=== PATIENT | male | born 1935 | race Caucasian/White ===

== ENCOUNTER 2016-06-16 10:07 | Outpatient (RCR) | payer MEDICARE ==
[~2016-06-16 10:07] MED LIST: AMLO10TA PO; AMLO10TA2 PO; ASP81TEC PO; ASPI-586 PO; ATOR40TA70 PO; ATR20T PO; CLOP75TA28 PO; CLPD75T PO; CRS350T PO; CYCL5TAB11 PO; ENAL10TA PO; HYDR-3583 PO; HYDR-3730 PO; HYDR118S10 PO; METO-274 PO; METO100T2 PO; METO50TA7; NAPR550T PO; NIA500ERT; OMEG-109 PO; OMG1KC PO; TELM40T; TRAM50TA2 PO; TRM50T PO; VYTORIN
--- OUTSIDE RECORDS SUMMARY | 2016-06-16 10:10 | XMS REPORT | Continuity of Care Document ---
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 Name Role Phone NAMRATA SHAW MD PCP Advance Directives Directive Response Recorded Date/Time Advance Directives No 01/16/16 1:34pm Health Care Power of Cooler Supervisor No 01/16/16 1:34pm Organ Donor No 01/16/16 1:34pm Resuscitation Status Full Code 01/16/16 1:34pm Problems Active Problems Medical Problem Onset Date Status Plantar fasciitis Unknown Acute Sprain of wrist Unknown Acute Medications Current Home Medications Medication Dose Units Route Directions Days/Qty Instructions Start Date Enalapril Maleate 10 Mg 10 Mg Oral Twice A Day 01/18/16 Metoprolol Succinate 100 Mg 100 Mg Oral Daily 01/18/16 Amlodipine Besylate 10 Mg 10 Mg Oral Daily 01/18/16 Atorvastatin Calcium 40 Mg 40 Mg Oral Bedtime 01/18/16 [place]-3 Fatty Acids/Fish Oil 1 Each 1,200 Mg Oral Three Times A Day 01/18/16 Past Home Medications Medication Directions Ordered Status Clopidogrel Bisulfate 75 Mg Tablet, 75 Mg Oral Daily 11/09/06 Discontinued Aspirin 81 Mg Tablet, 81 Mg Oral Daily 11/09/06 Discontinued Metoprolol Succinate 50 Mg Tab.sr.24h, 11/09/06 Discontinued Telmisartan 40 Mg Tab, 11/09/06 Discontinued [Vytorin] , 11/09/06 Discontinued Atorvastatin Calcium 20 Mg Tablet, 40 Mg Oral Daily 06/13/09 Discontinued Fish Oil 1,000 Mg Cap, 1000 Unit Oral Three Times A Day 06/13/09 Discontinued Niacin 500 Mg Tablet.sa, 1000 Daily 10/19/10 Discontinued Carisoprodol 350 Mg Tablet, 1 Tab Oral Three Times A Day 10/19/10 Discontinued Acetaminophen/Hydrocodone Bitart 1 Each Tablet, 1 Each Oral As Needed Discontinued Enalapril Maleate 10 Mg Tablet, 10 Mg Oral Twice A Day 01/09/12 Discontinued Acetaminophen/Hydrocodone Bitart 1 Tab Tab, 1 - 2 Ea Oral Q 4 - 6 Hr Prn 03/08 Discontinued Tramadol Hcl 50 Mg Tab, 50 Mg Oral Every 4HRS 03/18/13 Discontinued Enalapril Maleate 10 Mg Tablet, 10 Mg Oral Twice A Day 03/31/14 Discontinued Amlodipine Besylate 10 Mg Tablet, 10 Mg Oral Daily 03/31/14 Discontinued Metoprolol Tartrate (Lopressor) 100 Mg Tablet, 100 Mg Oral Daily 03/31/14 Discontinued Tramadol Hcl 50 Mg Tablet, 50 Mg Oral Every 6 Hours as needed for Pain Discontinued Clopidogrel Bisulfate 75 Mg Tablet, 75 Mg Oral Daily 01/18/16 Discontinued Social History Social History Problem Response Recorded Date/Time Alcohol Use Denies Use 01/16/2016 1:30pm Recreational Drug Use No 01/16/2016 1:30pm Recent Foreign Travel No 01/16/2016 1:30pm Recent Infectious Disease Exposure No 01/16/2016 1:30pm Hospitalization with Isolation Denies 01/19/2016 3:31pm Smoking Status Former Smoker 01/16/2016 1:27pm Do you dip or chew tobacco? No 01/16/2016 9:23am Query Response Start Date Stop Date Smoking Status Former Smoker 05/10/2012 Hospital Discharge Instructions Patient Instructions Physician Instructions New, Converted or Re-Newed RX: Other Plan of Care/Instructions/FU: Take a small feeding low-fat diet. See Dr. SANFORD at the [facility] tomorrow morning. Your appointment is for 11 o'clock. Please arrive by 1045. Do not take your Plavix or aspirin until seen and okayed by Dr. SANFORD Activity as Tolerated: Yes Discharge Diet: Eat Small Frequent Meals, Avoid Fatty Foods Care Plan Patient Instructions:: Take a small feeding low-fat diet.See [facility] at [facility] tomorrow morning. Yourappointment is for 11 o'clock. Please arrive by 1045.Do not take your Plavix or aspirin until seen and okayed by Dr. SANFORD Plan of Care Discharge Date 01/19/16 3:30pm Disposition 01 HOME, SELF-CARE Instructions/Education Provided Low Fat Diet (DC) Bone Marrow Biopsy (ED) Forms Provided PDI Medical Prescriptions See Medication Section Referrals QUANG SANFORD MD (Unspecified) - 01/19/16 Address: [facility] [address] [place], [place] [id number] Reason(s) for Referral: 11:00AM Care Plan and Goals See Discharge Instructions Section Functional Status Query Response Date Recorded Patient Orientation Person Place Time Situation Mumbles January 19, 2016 3:30pm Comprehension Ability Understands Concepts January 16, 2016 1:35pm Allergies, Adverse Reactions, Alerts Allergen Type Severity Reaction Status Last Updated Iodinated Contrast Media - IV Dye Allergy Unknown Active 11/09/06 Immunizations Name Given Type Date of Pneumonia Vaccine 07/10/11 Historical Date of Influenza Vaccine 05/28/11 Historical pneumococcal polysaccharide PPV23 01/19/16 Administered pneumococcal polysaccharide PPV23 01/19/16 Administered Vital Signs Acute Vital Signs Vital Response Date/Time Temperature (Fahrenheit) 96.8 degrees F (97.6 - 99.5) 01/19/2016 2:21pm Temperature (Calculated Celsius) 36.13492 degrees C (36.4 - 37.5) 01/19/2016 2:21pm Temperature Source Tympanic 01/19/2016 2:21pm Pulse Rate (adult) 83 bpm (60 - 90) 01/19/2016 2:21pm Respiratory Rate 20 bpm (12 - 24) 01/19/2016 2:21pm O2 Sat by Pulse Oximetry 99 % (88 - 100) 01/19/2016 2:21pm Blood Pressure 125/60 mm Hg 01/19/2016 2:21pm Blood Pressure Mean 81 mm Hg 01/19/2016 2:21pm Pain Pain Intensity 0 01/19/2016 2:21pm Height (Feet) 5 feet 01/16/2016 1:21pm Height (Inches) 4.00 inches 01/16/2016 1:21pm Height (Calculated Centimeters) 162.351856 cm 01/16/2016 1:21pm Weight (Pounds) 150 pounds 01/16/2016 1:21pm Weight (Ounces) 6.0 oz 01/16/2016 1:21pm Weight (Calculated Grams) 77609.953 gm 01/16/2016 1:21pm Weight (Calculated Kilograms) 68.723230 kilograms 01/16/2016 1:21pm Calculated BMI 25.8 01/16/2016 1:21pm Results Pending Laboratory Results Test Name Collection Date/Time Procedures No known history of procedures. Encounters Encounter Location Arrival/Admit Date Discharge/Depart Date Attending Provider Discharged Inpatient (obs) [facility] 01/16/16 1:40pm 3:30pm GIRISH CHAN MD Registered Referred [facility] 01/14/16 10:55am SIMÓN MANNING
[2016-06-16 10:43] LABS: BASOPHILS % (AUTO) 1 % (0-10); EOSINOPHILS # (AUTO) 0.4 10^3/uL (0.0-0.3); EOSINOPHILS % (AUTO) 5 % (0-10); LYMPHOCYTES # (AUTO) 2.1 X 10^3 (1.0-4.0); LYMPHOCYTES % (AUTO) 25 % (12-44); MEAN CORPUSCULAR HEMOGLOBIN 30 PG (25-34); MEAN CORPUSCULAR HGB CONC 35 G/DL (32-36); MEAN CORPUSCULAR VOLUME 86 FL (80-99); MEAN PLATELET VOLUME 10.3 FL (7.4-10.4); MONOCYTES % (AUTO) 12 % (0-12); NEUTROPHILS # (AUTO) 4.8 X 10^3 (1.8-7.8); NEUTROPHILS % (AUTO) 58 % (42-75); PLATELET COUNT 205 10^3/uL (130-400); RED BLOOD COUNT 4.61 10^6/uL (4.35-5.85); RED CELL DISTRIBUTION WIDTH 14.7 % (10.0-14.5); WHITE BLOOD COUNT 8.4 10^3/uL (4.3-11.0)
[2016-06-16 11:07] LABS: ALANINE AMINOTRANSFERASE 20 U/L (0-55); ANION GAP 9 MMOL/L (5-14); ASPARTATE AMINO TRANSFERASE 18 U/L (5-34); BILIRUBIN,TOTAL 0.7 MG/DL (0.1-1.0); BLOOD UREA NITROGEN 24 MG/DL (7-18); BUN/CREATININE RATIO 29; CALCIUM 9.6 MG/DL (8.5-10.1); CARBON DIOXIDE 22 MMOL/L (21-32); CHLORIDE 104 MMOL/L (98-107); CREATININE SERUM 0.84 MG/DL (0.60-1.30); GFR ESTIMATED > 60; GLUCOSE 101 MG/DL (70-105); LACTATE DEHYDROGENASE 245 U/L (125-220); POTASSIUM 4.1 MMOL/L (3.6-5.0); SODIUM 135 MMOL/L (135-145); TOTAL PROTEIN 6.4 G/DL (6.4-8.2)
[2016-07-23] MEDS ORDERED: AMOX-355 PO (15:59)
== END 2016-09-14 | disposition home or self-care (01) ==
LOC: ONC 10:07
PROVIDERS: ATTEND Internal Medicine Hematology & Oncology
DX: D69.6 Thrombocytopenia, unspecified (principal); I25.10 Atherosclerotic heart disease of native coronary artery without angina pectoris; E78.00 Pure hypercholesterolemia, unspecified; K21.9 Gastro-esophageal reflux disease without esophagitis; K44.9 Diaphragmatic hernia without obstruction or gangrene; E78.5 Hyperlipidemia, unspecified; D46.9 Myelodysplastic syndrome, unspecified
CPT/HCPCS: 36415; 80053; 82232; 83615; 85025; 99213

== ENCOUNTER 2016-11-30 14:29 | Emergency (ER) | payer MEDICARE ==
[~2016-11-30] VITALS: Ht 160 cm; Wt 59.0 kg
[~2016-11-30 14:29] MED LIST changes: +AMOX-355 PO
--- NOTE | 2016-11-30 14:38 | ED Cough/URI ---
General Chief Complaint: Cough/Cold/Flu Symptoms Stated Complaint: FLU SYMPTOMS Source: patient Exam Limitations: no limitations History of Present Illness Time seen by provider: 14:37 Initial Comments To ER ambulatory accompanied by his with reports of fever, nonproductive cough, rhinorrhea and sore throat since yesterday. Timing/Duration: yesterday Severity/Quality: moderate Associated Symptoms: cough, fever/chills, nasal drainage, sore throat Allergies and Home Medications Allergies Coded Allergies: Iodinated Contrast Media - IV Dye (Verified Allergy, Unknown, 11/09/06) Home Medications Acetaminophen with Codeine 1 Each Tablet, 1 EACH PO Q8H PRN for COUGH, #10 Prescribed by: NIKOLE PIERRE on 11/30/16 1533 Amlodipine Besylate 10 Mg Tablet, 10 MG PO DAILY, (Reported) Aspirin 81 Mg Tablet.dr, 81 MG PO DAILY, (Reported) Atorvastatin Calcium 40 Mg Tablet, 40 MG PO HS, (Reported) Clopidogrel Bisulfate 75 Mg Tablet, 75 MG PO DAILY, (Reported) Docusate Sodium 100 Mg Capsule, 100 MG PO DAILY for 3 Days, #10 Prescribed by: NIKOLE PIERRE on 11/30/16 1533 Enalapril Maleate 10 Mg Tablet, 10 MG PO BID, (Reported) Hydrocodone/Acetaminophen 1 Each Tablet, 1-2 EACH PO Q4H, #35 Prescribed by: GIRISH CHAN on 03/04/16 1034 Metoprolol Succinate 100 Mg Tab.er.24h, 100 MG PO DAILY, (Reported) [place]-3 Fatty Acids/Fish Oil 1 Each Capsule, 1,200 MG PO TID, (Reported) Oseltamivir Phosphate 75 Mg Cap, 75 MG PO BID, #10 Prescribed by: NIKOLE PIERRE on 11/30/16 1533 Constitutional: see HPI, chills, fever EENTM: nose congestion, see HPI Respiratory: see HPI, cough Genitourinary: no symptoms reported Musculoskeletal: no symptoms reported Skin: no symptoms reported Psychiatric/Neurological: No Symptoms Reported Hematologic/Lymphatic: No Symptoms Reported Past Jqanldc-Frltob-Uwumos Hx Patient Social History Alcohol Use: Denies Use Recreational Drug Use: No Smoking Status: Former Smoker Type Used: Cigarettes Former Smoker/When Quit: May 10, 2012 Recent Foreign Travel: No Contact w/Someone Who Travel: No Recent Hopitalizations: No Immunizations Up To Date Tetanus Booster (TDap): Less than 5yrs Date of Pneumonia Vaccine: Jul 10, 2011 Date of Influenza Vaccine: May 28, 2011 Surgeries HX Surgeries: Yes (HERNIA X2, STENT IN HEART 2003) Respiratory Hx Respiratory Disorders: No Cardiovascular Hx Cardiac Disorders: Yes (STENT) Cardiac Disorders: High Cholesterol, Hypertension Neurological Hx Neurological Disorders: Yes Reproductive System Hx Reproductive Disorders: No Sexually Transmitted Disease: No HIV/AIDS: No Genitourinary Hx Genitourinary Disorders: No Gastrointestinal Hx Gastrointestinal Disorders: Yes Gastrointestinal Disorders: Hiatal Hernia Musculoskeletal Hx Musculoskeletal Disorders: Yes Musculoskeletal Disorders: Arthritis Endocrine Hx Endocrine Disorders: No HEENT HX ENT Disorders: Yes HEENT Disorders: Cataract Hearing Impairment: Denies Cancer Hx Cancer: No Psychosocial Hx Psychiatric Problems: No Integumentary HX Skin/Integumentary Disorder: No Blood Transfusions Hx Blood Disorders: No Adverse Reaction to a Blood Tr: No Family Medical History Significant Family History: No Pertinent Family Hx Physical Exam Vital Signs Vital Sign - Last 12Hours 11/30/16 14:34 Temp 101.6 Pulse 87 Resp 20 B/P (MAP) 159/98 Pulse Ox 92 O2 Delivery Room Air Capillary Refill : General Appearance: WD/WN, no apparent distress Eyes: Bilateral Eye EOMI, Bilateral Eye Normal Inspection, Bilateral Eye PERRL HEENT: PERRL/EOMI, normal ENT inspection Neck: non-tender, full range of motion Respiratory: lungs clear, normal breath sounds, no respiratory distress, no accessory muscle use, No wheezing Cardiovascular: regular rate, rhythm Gastrointestinal: normal bowel sounds, non tender, soft Extremities: normal range of motion, non-tender Neurologic/Psychiatric: alert, normal mood/affect, oriented x 3 Skin: normal color, warm/dry Laceration Repair : Suture Size: 5-0 Progress/Results/Core Measures Results/Orders Micro Results Microbiology 11/30/16 Influenza Types A,B Antigen (NAHEED) - Final, Complete My Orders Orders - NIKOLE PIERRE APRN Chest Pa/Lat (2 View) (11/30/16 14:35) Influenza A And B Antigens (11/30/16 14:35) Ibuprofen Tablet (Motrin Tablet) (11/30/16 14:45) Acetaminophen/Codeine Tablet (Tylenol W/ (11/30/16 14:45) Medications Given in ED Vital Signs/I&O Vital Sign - Last 12Hours 11/30/16 11/30/16 14:34 15:38 Temp 101.6 100.3 Pulse 87 84 Resp 20 20 B/P (MAP) 159/98 Pulse Ox 92 92 O2 Delivery Room Air Diagnostic Imaging Diagonstic Imaging: Xray Plain Films/CT/US/NM/MRI: chest Departure Impression Impression: Primary Impression: Influenza-like symptoms Disposition: HOME, SELF-CARE Condition: Stable Departure-Patient Inst. Decision time for Depature: 15:31 Referrals: NAMRATA SPARKS MD (PCP/Family) Primary Care Physician Patient Instructions: Flu, Adult (DC) Add. Discharge Instructions: 1. Tylenol and motrin as needed for fevers and discomfort 2. Follow up with Dr Sparks on Monday of this week 3. Medicaion as directed All discharge instructions reviewed with patient and/or family. Voiced understanding. Scripts Oseltamivir Phosphate (Tamiflu) 75 Mg Cap 75 MG PO BID, #10 CAP Prov: NIKOLE PIERRE APRN 11/30/16 Docusate Sodium (Colace) 100 Mg Capsule 100 MG PO DAILY for 3 Days, #10 CAP Prov: NIKOLE PIERRE APRN 11/30/16 Acetaminophen with Codeine (Tylenol with Codeine #3 Tablet) 1 Each Tablet 1 EACH PO Q8H Y for COUGH, #10 TAB Prov: NIKOLE PIERRE APRN 11/30/16 NIKOLE PIERRE APRN Nov 30, 2016 14:38
[2016-11-30] MEDS ORDERED: APAP 300 MG/CODEINE 30 MG (TYLENOL #3) TAB PO ONE (14:45)
[2016-11-30] MEDS ORDERED: IBUPROFEN TABLET 200 MG TAB PO ONE (14:45)
--- NOTE | 2016-11-30 15:28 | Diagnostic Imaging Report ---
INDICATION: Started coughing this morning, persisted all day. FINDINGS: Frontal and lateral views of the chest demonstrates lungs to be clear. The heart, mediastinum, pulmonary vascularity are normal. IMPRESSION: Negative chest. Dictated by: Dictated on workstation # [id number]
[2016-11-30] MEDS ORDERED: OSLT75C PO (15:33)
[2016-11-30] MEDS ORDERED: DOCU-143 PO (15:33)
[2016-11-30] MEDS ORDERED: ACET-789 PO (15:33)
[2016-11-30 15:38] VITALS: BP 142/90
--- OUTSIDE RECORDS SUMMARY | 2017-01-01 17:34 | XMS REPORT | Continuity of Care Document ---
Author Author [facility] Organization [facility] Address Unknown Phone Unavailable Allergies Active Description Code Type Severity Reaction Onset Reported/Identified Relationship to Patient Clinical Status Yes Iodinated Contrast Media - IV Dye [id number] Drug Allergy Unknown N/A 11/09/2006 Yes Iodinated Contrast Media - Oral and [id number] Drug Allergy Unknown N/A 11/09/2006 Medications Problems Date Dx Coded Attending Type Code Diagnosis Diagnosed By 10/19/2010 Ot 723.1 CERVICALGIA 03/06/2012 Ot 272.4 HYPERLIPIDEMIA NEC/NOS 03/06/2012 Ot 275.2 DIS MAGNESIUM METABOLISM 03/06/2012 Ot 276.51 DEHYDRATION 03/06/2012 Ot 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 03/06/2012 Ot 458.9 HYPOTENSION NOS 03/06/2012 Ot 584.9 ACUTE RENAL FAILURE, UNSPECIFIED 03/06/2012 Ot 992.5 HEAT EXHAUSTION NOS 03/06/2012 Ot E000.8 OTHER EXTERNAL CAUSE STATUS 03/06/2012 Ot E849.0 ACCIDENT IN HOME 03/06/2012 Ot E900.0 EXCESSIVE HEAT: WEATHER 03/06/2012 Ot V45.82 PERCUTANEOUS TRANSLUM CORON ANGIOPLASTY 05/04/2012 Ot 272.0 PURE HYPERCHOLESTEROLEM 05/04/2012 Ot 272.4 HYPERLIPIDEMIA NEC/NOS 05/04/2012 Ot 401.9 HYPERTENSION NOS 05/04/2012 Ot 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 05/04/2012 Ot 550.10 UNILAT ING HERNIA W OBST 05/04/2012 Ot 603.9 HYDROCELE NOS 05/04/2012 Ot V45.82 PERCUTANEOUS TRANSLUM CORON ANGIOPLASTY 05/11/2012 Ot 550.90 UNILAT INGUINAL HERNIA 03/18/2013 BONITA SELF Ot 89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 03/18/2013 BONITA SELF Ot 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 03/18/2013 BONITA SELF Ot 729.5 PAIN IN LIMB 03/18/2013 BONITA SELF Ot 923.00 CONTUSION SHOULDER REG 03/18/2013 BONITA SELF Ot 923.11 CONTUSION OF ELBOW 03/18/2013 BONITA SELF Ot E849.0 ACCIDENT IN HOME 03/18/2013 BONITA SELF Ot E885.9 FALL FROM SLIPPING, TRIPPING, OR STUMBLI 03/18/2013 BONITA SELF Ot V12.54 PERSONAL HX OF TIA, CEREBRAL INFARCTION 03/18/2013 BONITA SELF Ot V45.82 PERCUTANEOUS TRANSLUM CORON ANGIOPLASTY 03/18/2013 BONITA SELF Ot V58.63 LONG-TERM(CURRENT)USE OF ANTIPLATELET/ AN 03/18/2013 BONITA SELF Ot V58.66 LONG-TERM (CURRENT) USE OF ASPIRIN 03/18/2013 BONITA SELF Ot V58.69 OTH MED,LT,CURRENT USE 09/16/2013 NIKOLE PIERRE APRN Ot 842.00 SPRAIN OF WRIST NOS 09/16/2013 NIKOLE PIERRE APRN Ot 959.3 ELB/FOREARM/WRST INJ NOS 09/16/2013 NIKOLE PIERRE APRN Ot E000.8 OTHER EXTERNAL CAUSE STATUS 09/16/2013 NIKOLE PEIRRE APRN Ot E885.9 FALL FROM SLIPPING, TRIPPING, OR STUMBLI 03/31/2014 MARLEEN GEORGE DO Ot 366.9 CATARACT NOS 03/31/2014 MARLEEN GEORGE DO Ot 401.9 HYPERTENSION NOS 03/31/2014 MARLEEN GEORGE DO Ot 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 03/31/2014 MARLEEN GEORGE DO Ot 728.71 PLANTAR FIBROMATOSIS 03/31/2014 MARLEEN GEORGE DO Ot V12.54 PERSONAL HX OF TIA, CEREBRAL INFARCTION 03/31/2014 MARLEEN GEORGE DO, Ot V45.82 PERCUTANEOUS TRANSLUM CORON ANGIOPLASTY 03/31/2014 MARLEEN GEORGE DO Ot V58.61 ANTICOAGULANTS,LT,CURRENT USE 03/31/2014 MARLEEN GEORGE DO Ot V58.63 LONG-TERM(CURRENT)USE OF ANTIPLATELET/ AN 03/31/2014 MARLEEN GEORGE DO, Ot V58.69 OTH MED,LT,CURRENT USE 10/07/2014 Ot 397.0 10/07/2014 Ot 401.9 10/07/2014 Ot 414.01 10/07/2014 Ot 424.0 10/07/2014 Ot 272.4 10/07/2014 Ot 272.4 10/07/2014 Ot 401.9 10/07/2014 Ot 414.01 10/07/2014 Ot 424.0 10/07/2014 Ot 715.31 10/07/2014 Ot 791.9 10/07/2014 Ot V72.63 10/07/2014 Ot V72.81 10/07/2014 Ot V74.8 10/07/2014 Ot 272.4 10/07/2014 Ot 401.9 10/07/2014 Ot 414.01 10/07/2014 Ot 272.4 10/07/2014 Ot 401.9 10/07/2014 Ot 414.01 10/07/2014 Ot 272.4 10/07/2014 Ot 401.9 10/07/2014 Ot 414.01 10/07/2014 Ot 272.4 10/07/2014 Ot 396.3 10/07/2014 Ot 397.0 10/07/2014 Ot 414.00 10/07/2014 Ot 786.50 10/07/2014 Ot 401.9 10/07/2014 Ot 414.00 10/07/2014 Ot 272.4 10/07/2014 ADRI ROSALES, JOSE Vines Ot 396.3 10/07/2014 ADRI ROSALES, JOSE Vines Ot 397.0 10/07/2014 ADRI ROSALES, JOSE Vines Ot 401.9 10/07/2014 ADRI ROSALES, JOSE Vines Ot 414.00 10/07/2014 ADRI ROSALES, JOSE Vines Ot 424.1 10/07/2014 ADRI ROSALES, JOSE Vines Ot 433.10 10/07/2014 ADRI ROSALES, JOSE Vines Ot 272.4 10/07/2014 ADRI ROSALES, JOSE Vines Ot 401.9 10/07/2014 ADRI ROSALES, JOSE Vines Ot 414.00 10/07/2014 ADRI ROSALES, JOSE Vines Ot 424.1 10/07/2014 ADRI ROSALES, JOSE Vines Ot 433.10 10/09/2014 ADRI ROSALES, JOSE Vines Ot 272.4 10/09/2014 ADRI ROSALES, JOSE Vines Ot 401.9 10/09/2014 JOSE RUSH MD Ot 414.00 10/09/2014 ADRI ROSALES, JOSE Vines Ot 424.0 10/09/2014 ADRI ROSALES, JOSE Vines Ot 433.10 11/18/2014 Ot 397.0 11/18/2014 Ot 401.9 11/18/2014 Ot 414.01 11/18/2014 Ot 424.0 11/18/2014 Ot 272.4 11/18/2014 Ot 272.4 11/18/2014 Ot 401.9 11/18/2014 Ot 414.01 11/18/2014 Ot 424.0 11/18/2014 Ot 715.31 11/18/2014 Ot 791.9 11/18/2014 Ot V72.63 11/18/2014 Ot V72.81 11/18/2014 Ot V74.8 11/18/2014 Ot 272.4 11/18/2014 Ot 401.9 11/18/2014 Ot 414.01 11/18/2014 Ot 272.4 11/18/2014 Ot 401.9 11/18/2014 Ot 414.01 11/18/2014 Ot 272.4 11/18/2014 Ot 401.9 11/18/2014 Ot 414.01 11/18/2014 Ot 272.4 11/18/2014 Ot 396.3 11/18/2014 Ot 397.0 11/18/2014 Ot 414.00 11/18/2014 Ot 786.50 11/18/2014 Ot 401.9 11/18/2014 Ot 414.00 11/18/2014 Ot 272.4 11/18/2014 ADRI ROSALES, JOSE Vines Ot 396.3 11/18/2014 ADRI ROSALES, JOSE Vines Ot 397.0 11/18/2014 ADRI ROSALES, JOSE Vines Ot 401.9 11/18/2014 ADRI ROSALES, JOSE Vines Ot 414.00 11/18/2014 ADRI ROSALES, JOSE Vines Ot 424.1 11/18/2014 ADRI ROSAELS, JOSE Vines Ot 433.10 11/18/2014 ADRI ROSALES, JOSE Vines Ot 272.4 11/18/2014 ADRI ROSALES, JOSE Vines Ot 401.9 11/18/2014 ADRI ROSALES, JOSE Vines Ot 414.00 11/18/2014 ADRI ROSALES, JOSE Vines Ot 424.1 11/18/2014 ADRI ROSALES, JOSE Vines Ot 433.10 11/18/2014 ADRI ROSALES, JOSE Vines Ot 272.4 11/18/2014 ADRI ROSALES, JOSE Vines Ot 401.9 11/18/2014 ADRI ROSALES, JOSE Vines Ot 414.00 11/18/2014 ADRI ROSALES, JOSE Vines Ot 424.0 11/18/2014 ADRI ROSALES, JOSE Vines Ot 433.10 04/10/2015 ADRI ROSALES, JOSE Vines Ot 272.4 04/10/2015 ADRI ROSALES, JOSE Vines Ot 401.9 04/10/2015 ADRI ROSALES, JOSE Vines Ot 414.00 04/10/2015 ADRI ROSALES, JOSE Vines Ot 424.0 04/10/2015 ADRI ROSALES, JOSE Vines Ot 433.10 05/26/2015 Ot 272.4 05/26/2015 Ot 401.9 05/26/2015 Ot 414.01 05/26/2015 Ot 272.4 05/26/2015 Ot 401.9 05/26/2015 Ot 414.01 05/26/2015 Ot 272.4 05/26/2015 Ot 401.9 05/26/2015 Ot 414.01 05/26/2015 Ot 272.4 05/26/2015 Ot 396.3 05/26/2015 Ot 397.0 05/26/2015 Ot 414.00 05/26/2015 Ot 786.50 05/26/2015 Ot 401.9 05/26/2015 Ot 414.00 05/26/2015 Ot 272.4 05/26/2015 ADRI ROSALES, JOSE Vines Ot 396.3 05/26/2015 ADRI ROSALES, JOSE Vines Ot 397.0 05/26/2015 ADRI ROSALES, JOSE Vines Ot 401.9 05/26/2015 ADRI ROSALES, JOSE Vines Ot 414.00 05/26/2015 ADRI ROSALES, JOSE Vines Ot 424.1 05/26/2015 ADRI ROSALES, JOSE Vines Ot 433.10 05/26/2015 ADRI ROSALES, JOSE Vines Ot 272.4 05/26/2015 ADRI ROSALES, JOSE Vines Ot 401.9 05/26/2015 ADRI ROSALES, JOSE Vines Ot 414.00 05/26/2015 ADRI ROSALES, JOSE Vines Ot 424.1 05/26/2015 ADRI ROSALES, JOSE Vines Ot 433.10 05/26/2015 ADRI ROSALES, JOSE Vines Ot 272.4 05/26/2015 EARLE RUSH MDHAR J Ot 401.9 05/26/2015 ADRI ROSALES, JOSE Vines Ot 414.00 05/26/2015 ADRI ROSALES, JOSE Vines Ot 424.0 05/26/2015 ADRI ROSALES, JOSE Vines Ot 433.10 06/18/2015 MCKEON-SAE PA, MAGALIS K Ot 401.9 06/18/2015 MCKEON-SAE PA, MAGALIS K Ot 414.9 06/18/2015 MCKEON-SAE PA, MAGALIS K Ot 424.1 06/18/2015 MCKEON-SAE PA, MAGALIS K Ot 427.89 06/18/2015 MCKEON-SAE PA, MAGALIS K Ot 433.10 07/06/2015 MCKEON-SAE PA, MAGALIS K Ot 401.9 07/06/2015 MCKEON-SAE PA, MAGALIS K Ot 414.9 07/06/2015 MCKEON-SAE PA, MAGALIS K Ot 424.1 07/06/2015 MCKEON-SAE PA, MAGALIS K Ot 427.89 07/06/2015 MCKEON-SAE PA, MAGALIS K Ot 433.10 07/20/2015 MCKEON-SAE PA, MAGALIS K Ot I10 07/20/2015 MCKEON-SAE PA, MAGALIS K Ot I25.10 07/20/2015 MCKEON-SAE PA, MAGALIS K Ot I35.1 07/20/2015 MCKEON-SAE PA, MAGALIS K Ot I65.29 07/20/2015 MCKEON-SAE PA, MAGALIS K Ot R00.1 08/04/2015 MCKEON-SAE PA, MAGALIS K Ot I10 08/04/2015 MCKEON-SAE PA, MAGALIS K Ot I25.10 08/04/2015 MCKEON-SAE PA, MAGALIS K Ot I35.1 08/04/2015 MCKEON-SAE PA, MAGALIS K Ot I65.29 08/04/2015 MCKEON-SAE PA, MAGALIS K Ot R00.1 11/17/2015 ADRI ROSALES, JOSE Vines Ot E78.2 11/17/2015 ADRI ROSALES, JOSE Vines Ot I10 11/17/2015 ADRI ROSALES, JOSE Vines Ot I25.10 11/17/2015 ADRI ROSALES, JOSE Vines Ot I65.23 01/19/2016 GIRISH CHAN MD Ot D69.6 THROMBOCYTOPENIA, UNSPECIFIED 01/19/2016 GIRISH CHAN MD Ot D70.9 NEUTROPENIA, UNSPECIFIED 01/19/2016 GIRISH CHAN MD Ot E78.0 PURE HYPERCHOLESTEROLEMIA 01/19/2016 GIRISH CHAN MD Ot E78.5 HYPERLIPIDEMIA, UNSPECIFIED 01/19/2016 GIRISH CHAN MD Ot I25.10 ATHSCL HEART DISEASE OF [place] CORONARY 01/19/2016 GIRISH CHAN MD Ot K21.9 GASTRO-ESOPHAGEAL REFLUX DISEASE WITHOUT 01/19/2016 GIRISH CHAN MD Ot K44.9 DIAPHRAGMATIC HERNIA WITHOUT OBSTRUCTION 01/19/2016 GIRISH CHAN MD Ot K80.10 CALCULUS OF GALLBLADDER W CHRONIC CHOLEC 01/19/2016 GIRISH CHAN MD Ot R10.11 RIGHT UPPER QUADRANT PAIN 01/19/2016 GIRISH CHAN MD Ot D69.6 THROMBOCYTOPENIA, UNSPECIFIED 01/19/2016 GIRISH CHAN MD Ot D70.9 NEUTROPENIA, UNSPECIFIED 01/19/2016 GIRISH CHAN MD Ot E78.0 PURE HYPERCHOLESTEROLEMIA 01/19/2016 GIRISH CHAN MD Ot E78.5 HYPERLIPIDEMIA, UNSPECIFIED 01/19/2016 GIRISH CHAN MD Ot I25.10 ATHSCL HEART DISEASE OF [place] CORONARY 01/19/2016 GIRISH CHAN MD Ot K21.9 GASTRO-ESOPHAGEAL REFLUX DISEASE WITHOUT 01/19/2016 GIRISH CHAN MD Ot K44.9 DIAPHRAGMATIC HERNIA WITHOUT OBSTRUCTION 01/19/2016 GIRISH CHAN MD Ot K80.10 CALCULUS OF GALLBLADDER W CHRONIC CHOLEC 01/19/2016 GIRISH CHAN MD Ot R10.11 RIGHT UPPER QUADRANT PAIN 01/25/2016 ORVILLE ROSALES, GERARD Arreola Ot M25.551 PAIN IN RIGHT HIP 02/16/2016 Ot 272.4 HYPERLIPIDEMIA NEC/NOS 02/16/2016 Ot 401.9 HYPERTENSION NOS 02/16/2016 Ot 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 02/16/2016 Ot 272.4 HYPERLIPIDEMIA NEC/NOS 02/16/2016 Ot 401.9 HYPERTENSION NOS 02/16/2016 Ot 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 02/16/2016 Ot 272.4 HYPERLIPIDEMIA NEC/NOS 02/16/2016 Ot 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 02/16/2016 Ot 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 DISEASE 02/16/2016 Ot 414.00 CORON ATHEROSCLER NOS TYPE VESSEL, NATIV 02/16/2016 Ot 786.50 CHEST PAIN NOS 02/16/2016 Ot 401.9 HYPERTENSION NOS 02/16/2016 Ot 414.00 CORON ATHEROSCLER NOS TYPE VESSEL, NATIV 02/16/2016 Ot 272.4 HYPERLIPIDEMIA NEC/NOS 02/16/2016 JOSE RUSH MD Ot 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 02/16/2016 JOSE RUSH MD Ot 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 DISEASE 02/16/2016 JOSE RUSH MD Ot 401.9 HYPERTENSION NOS 02/16/2016 JOSE RUSH MD Ot 414.00 CORON ATHEROSCLER NOS TYPE VESSEL, NATIV 02/16/2016 JSOE RUSH MD Ot 424.1 AORTIC VALVE DISORDER 02/16/2016 JOSE RUSH MD Ot 433.10 CAROTID ARTERY OCCLUSION W O CEREBRAL IN 02/16/2016 JOSE RUSH MD Ot 272.4 HYPERLIPIDEMIA NEC/NOS 02/16/2016 JOSE RUSH MD Ot 401.9 HYPERTENSION NOS 02/16/2016 JOSE RUSH MD Ot 414.00 CORON ATHEROSCLER NOS TYPE VESSEL, NATIV 02/16/2016 JOSE RUSH MD Ot 424.1 AORTIC VALVE DISORDER 02/16/2016 JOSE RUSH MD Ot 433.10 CAROTID ARTERY OCCLUSION W O CEREBRAL IN 02/16/2016 JOSE RUSH MD Ot 272.4 HYPERLIPIDEMIA NEC/NOS 02/16/2016 JOSE RUSH MD Ot 401.9 HYPERTENSION NOS 02/16/2016 JOSE RUSH MD Ot 414.00 CORON ATHEROSCLER NOS TYPE VESSEL, NATIV 02/16/2016 JOSE RUSH MD Ot 424.0 MITRAL VALVE DISORDER 02/16/2016 JOSE RUSH MD Ot 433.10 CAROTID ARTERY OCCLUSION W O CEREBRAL IN 02/16/2016 MAGALIS FOURNIER Ot 401.9 HYPERTENSION NOS 02/16/2016 MAGALIS FOURNIER Ot 414.9 CHR ISCHEMIC HRT DIS NOS 02/16/2016 MAGALIS FOURNIER Ot 424.1 AORTIC VALVE DISORDER 02/16/2016 MAGALIS FOURNIER Ot 427.89 CARDIAC DYSRHYTHMIAS NEC 02/16/2016 MAGALIS FOURNIER Ot 433.10 CAROTID ARTERY OCCLUSION W O CEREBRAL IN 02/16/2016 MAGALIS FOURNIER Ot I10 ESSENTIAL (PRIMARY) HYPERTENSION 02/16/2016 MAGALIS FOURNIER Ot I25.10 ATHSCL HEART DISEASE OF [place] CORONARY 02/16/2016 MAGALIS FOURNIER Ot I35.1 NONRHEUMATIC AORTIC (VALVE) INSUFFICIENC 02/16/2016 MAGALIS FOURNIER Ot I65.29 OCCLUSION AND STENOSIS OF UNSPECIFIED CA 02/16/2016 MAGALIS FOURNIER Ot R00.1 BRADYCARDIA, UNSPECIFIED 02/16/2016 JOSE RUSH MD Ot E78.2 MIXED HYPERLIPIDEMIA 02/16/2016 JOSE RUSH MD Ot I10 ESSENTIAL (PRIMARY) HYPERTENSION 02/16/2016 JOSE RUSH MD Ot I25.10 ATHSCL HEART DISEASE OF [place] CORONARY 02/16/2016 JOSE RUSH MD Ot I65.23 OCCLUSION AND STENOSIS OF BILATERAL [place] 02/16/2016 QUANG SANFORD MD Ot D69.6 THROMBOCYTOPENIA, UNSPECIFIED 02/16/2016 QUANG SANFORD MD Ot E78.0 PURE HYPERCHOLESTEROLEMIA 02/16/2016 QUANG SANFORD MD, Ot E78.5 HYPERLIPIDEMIA, UNSPECIFIED 02/16/2016 QUANG SANFORD MD Ot I25.10 ATHSCL HEART DISEASE OF [place] CORONARY 02/16/2016 QUANG SANFORD MD Ot K21.9 GASTRO-ESOPHAGEAL REFLUX DISEASE WITHOUT 02/16/2016 QUANG SANFORD MD Ot K44.9 DIAPHRAGMATIC HERNIA WITHOUT OBSTRUCTION 02/16/2016 QUANG SANFORD MD Ot D69.6 THROMBOCYTOPENIA, UNSPECIFIED 02/16/2016 QUANG SANFORD MD Ot E78.0 PURE HYPERCHOLESTEROLEMIA 02/16/2016 QUANG SANFORD MD Ot E78.5 HYPERLIPIDEMIA, UNSPECIFIED 02/16/2016 QUANG SANFORD MD Ot I25.10 ATHSCL HEART DISEASE OF [place] CORONARY 02/16/2016 QUANG SANFORD MD Ot K21.9 GASTRO-ESOPHAGEAL REFLUX DISEASE WITHOUT 02/16/2016 QUANG SANFORD MD Ot K44.9 DIAPHRAGMATIC HERNIA WITHOUT OBSTRUCTION 02/19/2016 QUANG SANFORD MD Ot D69.6 THROMBOCYTOPENIA, UNSPECIFIED 02/19/2016 QUANG SANFORD MD Ot E78.0 PURE HYPERCHOLESTEROLEMIA 02/19/2016 QUANG SANFORD MD Ot E78.5 HYPERLIPIDEMIA, UNSPECIFIED 02/19/2016 QUANG SANFORD MD Ot I25.10 ATHSCL HEART DISEASE OF [place] CORONARY 02/19/2016 QUANG SANFORD MD Ot K21.9 GASTRO-ESOPHAGEAL REFLUX DISEASE WITHOUT 02/19/2016 QUANG SANFORD MD Ot K44.9 DIAPHRAGMATIC HERNIA WITHOUT OBSTRUCTION 02/26/2016 GIRISH CHAN MD, Ot K80.20 CALCULUS OF GALLBLADDER W/O CHOLECYSTITI 02/26/2016 GIRISH CHAN MD Ot Z01.818 ENCOUNTER FOR OTHER PREPROCEDURAL EXAMIN 02/26/2016 GIRISH CHAN MD Ot Z11.2 ENCOUNTER FOR SCREENING FOR OTHER BACTER 03/02/2016 GIRISH CHAN MD Ot K80.20 CALCULUS OF GALLBLADDER W/O CHOLECYSTITI 03/02/2016 GIRISH CHAN MD Ot Z01.818 ENCOUNTER FOR OTHER PREPROCEDURAL EXAMIN 03/02/2016 GIRISH CHAN MD Ot Z11.2 ENCOUNTER FOR SCREENING FOR OTHER BACTER 03/02/2016 GIRISH CHAN MD Ot K80.20 CALCULUS OF GALLBLADDER W/O CHOLECYSTITI 03/02/2016 GIRISH CHAN MD Ot Z01.818 ENCOUNTER FOR OTHER PREPROCEDURAL EXAMIN 03/02/2016 GIRISH CHAN MD Ot Z11.2 ENCOUNTER FOR SCREENING FOR OTHER BACTER 03/04/2016 GIRISH CHAN MD Ot K80.20 CALCULUS OF GALLBLADDER W/O CHOLECYSTITI 03/04/2016 GIRISH CHAN MD Ot Z01.818 ENCOUNTER FOR OTHER PREPROCEDURAL EXAMIN 03/04/2016 GIRISH CHAN MD Ot Z11.2 ENCOUNTER FOR SCREENING FOR OTHER BACTER 03/04/2016 GIRISH CHAN MD Ot K80.10 CALCULUS OF GALLBLADDER W CHRONIC CHOLEC 03/08/2016 GIRISH CHAN MD Ot K80.10 CALCULUS OF GALLBLADDER W CHRONIC CHOLEC 03/10/2016 GIRISH CHAN MD Ot K80.10 CALCULUS OF GALLBLADDER W CHRONIC CHOLEC 04/19/2016 QUANG SANFORD MD Ot 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, UNSPECIFIED 04/19/2016 QUANG SANFORD MD Ot D69.6 THROMBOCYTOPENIA, UNSPECIFIED 04/19/2016 QUANG SANFORD MD Ot E78.0 PURE HYPERCHOLESTEROLEMIA 04/19/2016 QUANG SANFORD MD Ot E78.5 HYPERLIPIDEMIA, UNSPECIFIED 04/19/2016 QUANG SANFORD MD Ot I25.10 ATHSCL HEART DISEASE OF [place] CORONARY 04/19/2016 QUANG SANFORD MD Ot K21.9 GASTRO-ESOPHAGEAL REFLUX DISEASE WITHOUT 04/19/2016 QUANG SANFORD MD Ot K44.9 DIAPHRAGMATIC HERNIA WITHOUT OBSTRUCTION 04/20/2016 QUANG SANFORD MD, Ot 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, UNSPECIFIED 04/20/2016 QUANG SANFORD MD Ot D69.6 THROMBOCYTOPENIA, UNSPECIFIED 04/20/2016 QUANG SANFORD MD Ot E78.0 PURE HYPERCHOLESTEROLEMIA 04/20/2016 QUANG SANFORD MD, Ot E78.5 HYPERLIPIDEMIA, UNSPECIFIED 04/20/2016 QUANG SANFORD MD Ot I25.10 ATHSCL HEART DISEASE OF [place] CORONARY 04/20/2016 QUANG SANFORD MD Ot K21.9 GASTRO-ESOPHAGEAL REFLUX DISEASE WITHOUT 04/20/2016 QUANG SANFORD MD Ot K44.9 DIAPHRAGMATIC HERNIA WITHOUT OBSTRUCTION 06/17/2016 QUANG SANFORD MD Ot 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, UNSPECIFIED 06/17/2016 QUANG SANFORD MD Ot D69.6 THROMBOCYTOPENIA, UNSPECIFIED 06/17/2016 QUANG SANFORD MD Ot E78.0 PURE HYPERCHOLESTEROLEMIA * DO NOT USE * 06/17/2016 QUANG SANFORD MD, Ot E78.5 HYPERLIPIDEMIA, UNSPECIFIED 06/17/2016 QUANG SANFORD MD Ot I25.10 ATHSCL HEART DISEASE OF [place] CORONARY 06/17/2016 QUANG SANFORD MD, Ot K21.9 GASTRO-ESOPHAGEAL REFLUX DISEASE WITHOUT 06/17/2016 QUANG SANFORD MD Ot K44.9 DIAPHRAGMATIC HERNIA WITHOUT OBSTRUCTION 06/20/2016 Ot 401.9 HYPERTENSION NOS 06/20/2016 Ot 414.00 CORON ATHEROSCLER NOS TYPE VESSEL, NATIV 06/20/2016 QUANG SANFORD MD Ot 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, UNSPECIFIED 06/20/2016 QUANG SANFORD MD Ot D69.6 THROMBOCYTOPENIA, UNSPECIFIED 06/20/2016 QUANG SANFORD MD Ot E78.0 PURE HYPERCHOLESTEROLEMIA * DO NOT USE * 06/20/2016 QUANG SANFORD MD Ot E78.5 HYPERLIPIDEMIA, UNSPECIFIED 06/20/2016 QUANG SANFORD MD Ot I25.10 ATHSCL HEART DISEASE OF [place] CORONARY 06/20/2016 QUANG SANFORD MD Ot K21.9 GASTRO-ESOPHAGEAL REFLUX DISEASE WITHOUT 06/20/2016 QUANG SANFORD MD Ot K44.9 DIAPHRAGMATIC HERNIA WITHOUT OBSTRUCTION 07/20/2016 QUANG SANFORD MD Ot 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, UNSPECIFIED 07/20/2016 QUANG SANFORD MD Ot D69.6 THROMBOCYTOPENIA, UNSPECIFIED 07/20/2016 QUANG SANFORD MD Ot E78.00 PURE HYPERCHOLESTEROLEMIA, UNSPECIFIED 07/20/2016 QUANG SANFORD MD Ot E78.5 HYPERLIPIDEMIA, UNSPECIFIED 07/20/2016 QUANG SANFORD MD Ot I25.10 ATHSCL HEART DISEASE OF [place] CORONARY 07/20/2016 QUANG SANFORD MD Ot K21.9 GASTRO-ESOPHAGEAL REFLUX DISEASE WITHOUT 07/20/2016 QUANG SANFORD MD Ot K44.9 DIAPHRAGMATIC HERNIA WITHOUT OBSTRUCTION 07/23/2016 NIKOLE PIERRE APRN Ot I10 ESSENTIAL (PRIMARY) HYPERTENSION 07/23/2016 NIKOLE PIERRE APRN Ot J32.0 CHRONIC MAXILLARY SINUSITIS 07/23/2016 NIKOLE PIERRE APRN Ot S01.112A LACERATION W/O FB OF LEFT EYELID AND PER 07/23/2016 NIKOLE PIERRE APRN Ot S01.412A LACERATION W/O FOREIGN BODY OF LEFT VALENTIN 07/23/2016 NIKOLE PIERRE APRN Ot S60.212A CONTUSION OF LEFT WRIST, INITIAL ENCOUNT 07/23/2016 NIKOLE PIERRE APRN Ot W18.09XA STRIKING AGAINST OTH OBJECT W SUBSEQUENT 07/23/2016 NIKOLE PIERRE APRN Ot Y92.[address] [facility] [address] [facility] ( PRIVATE 07/23/2016 NIKOLE PIERRE APRN Ot Y93.9 ACTIVITY, UNSPECIFIED 07/23/2016 NIKOLE PIERRE APRN Ot Y99.8 OTHER EXTERNAL CAUSE STATUS 07/23/2016 NIKOLE PIERRE APRN Ot Z79.02 JAVA ARCHITECT (CURRENT) USE OF ANTITHROMBOTI 07/23/2016 NIKOLE PIERRE APRN Ot Z79.82 USP (CURRENT) USE OF ASPIRIN 07/23/2016 NIKOLE PIERRE APRN Ot Z95.5 PRESENCE OF CORONARY ANGIOPLASTY IMPLANT 07/25/2016 NIKOLE PIRERE APRN Ot I10 ESSENTIAL (PRIMARY) HYPERTENSION 07/25/2016 NIKOLE PIERRE APRN Ot J32.0 CHRONIC MAXILLARY SINUSITIS 07/25/2016 NIKOLE PEIRRE APRN Ot S01.112A LACERATION W/O FB OF LEFT EYELID AND PER 07/25/2016 NIKOLE PIERRE APRN Ot S01.412A LACERATION W/O FOREIGN BODY OF LEFT VALENTIN 07/25/2016 NIKOLE PIERRE APRN Ot S60.212A CONTUSION OF LEFT WRIST, INITIAL ENCOUNT 07/25/2016 NIKOLE PIERRE APRN Ot W18.09XA STRIKING AGAINST OTH OBJECT W SUBSEQUENT 07/25/2016 NIKOLE PIERRE APRN Ot Y92.[address] [facility] ( PRIVATE 07/25/2016 NIKOLE PIERRE APRN Ot Y93.9 ACTIVITY, UNSPECIFIED 07/25/2016 NIKOLE PIERRE APRN Ot Y99.8 OTHER EXTERNAL CAUSE STATUS 07/25/2016 NIKOLE PIERRE APRN Ot Z79.02 JAVA ARCHITECT (CURRENT) USE OF ANTITHROMBOTI 07/25/2016 NIKOLE PIERRE APRN Ot Z79.82 USP (CURRENT) USE OF ASPIRIN 07/25/2016 NIKOLE PIERRE APRN Ot Z95.5 PRESENCE OF CORONARY ANGIOPLASTY IMPLANT 07/30/2016 Ot 272.4 HYPERLIPIDEMIA NEC/NOS 07/30/2016 Ot 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 07/30/2016 Ot 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 DISEASE 07/30/2016 Ot 414.00 CORON ATHEROSCLER NOS TYPE VESSEL, NATIV 07/30/2016 Ot 786.50 CHEST PAIN NOS 07/30/2016 Ot 401.9 HYPERTENSION NOS 07/30/2016 Ot 414.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 ATHEROSCLER NOS TYPE VESSEL, NATIV 07/30/2016 Ot 272.4 HYPERLIPIDEMIA NEC/NOS 07/30/2016 ADRI ROSALES, JOSE Vines Ot 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 07/30/2016 JOSE RUSH MD Ot 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 DISEASE 07/30/2016 JOSE RUSH MD Ot 401.9 HYPERTENSION NOS 07/30/2016 JOSE RUSH MD Ot 414.00 CORON ATHEROSCLER NOS TYPE VESSEL, NATIV 07/30/2016 JOSE RUSH MD Ot 424.1 AORTIC VALVE DISORDER 07/30/2016 JOSE RUSH MD Ot 433.10 CAROTID ARTERY OCCLUSION W O CEREBRAL IN 07/30/2016 JOSE RUSH MD Ot 272.4 HYPERLIPIDEMIA NEC/NOS 07/30/2016 JOSE RUSH MD Ot 401.9 HYPERTENSION NOS 07/30/2016 JOSE RUSH MD Ot 414.00 CORON ATHEROSCLER NOS TYPE VESSEL, NATIV 07/30/2016 JOSE RUSH MD Ot 424.1 AORTIC VALVE DISORDER 07/30/2016 JOSE RUSH MD Ot 433.10 CAROTID ARTERY OCCLUSION W O CEREBRAL IN 07/30/2016 JOSE RUSH MD Ot 272.4 HYPERLIPIDEMIA NEC/NOS 07/30/2016 JOSE RUSH MD Ot 401.9 HYPERTENSION NOS 07/30/2016 JOSE RUSH MD Ot 414.00 CORON ATHEROSCLER NOS TYPE VESSEL, NATIV 07/30/2016 JOSE RUSH MD Ot 424.0 MITRAL VALVE DISORDER 07/30/2016 JOSE RUSH MD Ot 433.10 CAROTID ARTERY OCCLUSION W O CEREBRAL IN 07/30/2016 MAGALIS FOURNIER Ot 401.9 HYPERTENSION NOS 07/30/2016 MAGALIS FOURNIER Ot 414.9 CHR ISCHEMIC HRT DIS NOS 07/30/2016 MAGALIS FOURNIER Ot 424.1 AORTIC VALVE DISORDER 07/30/2016 MAGALIS FOURNIER Ot 427.89 CARDIAC DYSRHYTHMIAS NEC 07/30/2016 MAGALIS FOURNIER Ot 433.10 CAROTID ARTERY OCCLUSION W O CEREBRAL IN 07/30/2016 MAGALIS FOURNIER Ot I10 ESSENTIAL (PRIMARY) HYPERTENSION 07/30/2016 MAGALIS FOURNIER Ot I25.10 ATHSCL HEART DISEASE OF [place] CORONARY 07/30/2016 MAGALIS FOURNIER Ot I35.1 NONRHEUMATIC AORTIC (VALVE) INSUFFICIENC 07/30/2016 MAGALIS FOURNIER Ot I65.29 OCCLUSION AND STENOSIS OF UNSPECIFIED CA 07/30/2016 MAGALIS FOURNIER Ot R00.1 BRADYCARDIA, UNSPECIFIED 07/30/2016 JOSE RUSH MD Ot E78.2 MIXED HYPERLIPIDEMIA 07/30/2016 JOSE RUSH MD Ot I10 ESSENTIAL (PRIMARY) HYPERTENSION 07/30/2016 JOSE RUSH MD Ot I25.10 ATHSCL HEART DISEASE OF [place] CORONARY 07/30/2016 JOSE RUSH MD Ot I65.23 OCCLUSION AND STENOSIS OF BILATERAL [place] 07/30/2016 QUANG SANFORD MD, Ot 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, UNSPECIFIED 07/30/2016 QUANG SANFORD MD, Ot D69.6 THROMBOCYTOPENIA, UNSPECIFIED 07/30/2016 QUANG SANFORD MD, Ot E78.00 PURE HYPERCHOLESTEROLEMIA, UNSPECIFIED 07/30/2016 QUANG SANFORD MD, Ot E78.5 HYPERLIPIDEMIA, UNSPECIFIED 07/30/2016 QUANG SANFORD MD, Ot I25.10 ATHSCL HEART DISEASE OF [place] CORONARY 07/30/2016 QUANG SANFORD MD, Ot K21.9 GASTRO-ESOPHAGEAL REFLUX DISEASE WITHOUT 07/30/2016 QUANG SANFORD MD Ot K44.9 DIAPHRAGMATIC HERNIA WITHOUT OBSTRUCTION 08/01/2016 LEX ROSALES, NISHI [place] Ot S01.112A LACERATION W/O FB OF LEFT EYELID AND PER 08/01/2016 NISHI BURNETT MD Ot S01.112D LACERATION W/O FB OF LEFT EYELID AND PER 08/05/2016 QUANG SANFORD MD, Ot 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, UNSPECIFIED 08/05/2016 QUANG SANFORD MD Ot D69.6 THROMBOCYTOPENIA, UNSPECIFIED 08/05/2016 QUANG SANFORD MD Ot E78.00 PURE HYPERCHOLESTEROLEMIA, UNSPECIFIED 08/05/2016 QUANG SANFORD MD Ot E78.5 HYPERLIPIDEMIA, UNSPECIFIED 08/05/2016 QUANG SANFORD MD Ot I25.10 ATHSCL HEART DISEASE OF [place] CORONARY 08/05/2016 QUANG SANFORD MD Ot K21.9 GASTRO-ESOPHAGEAL REFLUX DISEASE WITHOUT 08/05/2016 QUANG SANFORD MD Ot K44.9 DIAPHRAGMATIC HERNIA WITHOUT OBSTRUCTION 09/14/2016 QUANG SANFORD MD, Ot 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, UNSPECIFIED 09/14/2016 QUANG SANFORD MD Ot D69.6 THROMBOCYTOPENIA, UNSPECIFIED 09/14/2016 QUANG SANFORD MD Ot E78.00 PURE HYPERCHOLESTEROLEMIA, UNSPECIFIED 09/14/2016 QUANG SANFORD MD Ot E78.5 HYPERLIPIDEMIA, UNSPECIFIED 09/14/2016 QUANG SANFORD MD Ot I25.10 ATHSCL HEART DISEASE OF [place] CORONARY 09/14/2016 QUANG SANFORD MD Ot K21.9 GASTRO-ESOPHAGEAL REFLUX DISEASE WITHOUT 09/14/2016 QUANG SANFORD MD Ot K44.9 DIAPHRAGMATIC HERNIA WITHOUT OBSTRUCTION 12/01/2016 NIKOLE PIERRE APRN Ot I10 ESSENTIAL (PRIMARY) HYPERTENSION 12/01/2016 NIKOLE PIERRE APRN Ot J02.9 ACUTE PHARYNGITIS, UNSPECIFIED 12/01/2016 NIKOLE PIERRE APRN Ot J10.1 FLU DUE TO OT IDENT INFLUENZA VIRUS W O 12/01/2016 NIKOLE PIERRE APRN Ot R50.9 FEVER, UNSPECIFIED 12/01/2016 NIKOLE PIERRE APRN Ot Z79.02 JAVA ARCHITECT (CURRENT) USE OF ANTITHROMBOTI 12/01/2016 NIKOLE PIERRE APRN Ot Z79.82 JAVA ARCHITECT (CURRENT) USE OF ASPIRIN 12/01/2016 NIKOLE PIERRE APRN Ot Z79.899 OTHER JAVA ARCHITECT (CURRENT) DRUG THERAPY 12/01/2016 NIKOLE PIERRE APRN Ot Z87.891 PERSONAL HISTORY OF NICOTINE DEPENDENCE 12/07/2016 JOSE RUSH MD Ot E78.2 MIXED HYPERLIPIDEMIA 12/07/2016 JOSE RUSH MD Ot I10 ESSENTIAL (PRIMARY) HYPERTENSION 12/07/2016 JOSE RUSH MD Ot I25.10 ATHSCL HEART DISEASE OF [place] CORONARY 12/07/2016 JOSE RUSH MD Ot I35.1 NONRHEUMATIC AORTIC (VALVE) INSUFFICIENC 12/07/2016 JOSE RUSH MD Ot I65.23 OCCLUSION AND STENOSIS OF [place]IL[place]AL [place] 12/07/2016 JOSE RUSH MD Ot R07.9 CHEST PAIN, UNSPECIFIED 12/07/2016 JOSE RUSH MD Ot E78.2 MIXED HYPERLIPIDEMIA 12/07/2016 JOSE RUSH MD Ot I10 ESSENTIAL (PRIMARY) HYPERTENSION 12/07/2016 JOSE RUSH MD Ot I25.10 ATHSCL HEART DISEASE OF [place] CORONARY 12/07/2016 JOSE RUSH MD Ot I35.1 NONRHEUMATIC AORTIC (VALVE) INSUFFICIENC 12/07/2016 JOSE RUSH MD Ot I65.23 OCCLUSION AND STENOSIS OF [place]ILATERAL [place] 12/07/2016 JOSE RUSH MD Ot R07.9 CHEST PAIN, UNSPECIFIED 12/09/2016 JOSE RUSH MD Ot E78.2 MIXED HYPERLIPIDEMIA 12/09/2016 JOSE RUSH MD Ot I10 ESSENTIAL (PRIMARY) HYPERTENSION 12/09/2016 JOSE RUSH MD Ot I25.10 ATHSCL HEART DISEASE OF [place] CORONARY 12/09/2016 JOSE RUSH MD Ot I35.1 NONRHEUMATIC AORTIC (VALVE) INSUFFICIENC 12/09/2016 JOSE RUSH MD Ot I65.23 OCCLUSION AND STENOSIS OF [place]AL [place] 12/09/2016 JOSE RUSH MD Ot R07.9 CHEST PAIN, UNSPECIFIED 12/27/2016 JOSE RUSH MD Ot E78.2 MIXED HYPERLIPIDEMIA 12/27/2016 JOSE RUSH MD Ot I10 ESSENTIAL (PRIMARY) HYPERTENSION 12/27/2016 JOSE RUSH MD Ot I25.10 ATHSCL HEART DISEASE OF [place] CORONARY 12/27/2016 JOSE RUSH MD Ot I35.1 NONRHEUMATIC AORTIC (VALVE) INSUFFICIENC 12/27/2016 JOSE RUSH MD Ot I65.23 OCCLUSION AND STENOSIS OF [place]AL [place] 12/27/2016 JOSE RUSH MD Ot R07.9 CHEST PAIN, UNSPECIFIED Procedures Results Test Result Range Influenza virus A and B antigen detection - 11/30/16 14:35 FLU RESULT NEGATIVE FOR INFLUENZA A AND B ANTIGENS BY IA NRG Encounters ACCT No. Visit Date/Time Discharge Status Pt. Type Provider Facility Loc./Unit Complaint [id number] 11/30/2016 14:31:00 2016 15:36:00 DIS Outpatient NIKOLE PIERRE APRN [facility] ER FLU SYMPTOMS [id number] 06/16/2016 10:07:00 2016 00:01:00 DIS Outpatient QUANG SANFORD MD [facility] ONC [id number] 07/30/2016 07:18:00 2015 07:34:00 DIS Outpatient LEX ROSALES, NISHI Whittington [facility] ER SUTURE REMOVAL [id number] 07/23/2016 14:58:00 2015 16:03:00 DIS Emergency NIKOLE PIERRE APRN [facility] ER FACIAL LAC [id number] 02/19/2016 10:30:00 2015 00:01:00 DIS Outpatient QUANG SANFORD MD [facility] ONC [id number] 03/04/2016 07:00:00 2015 12:35:00 DIS Outpatient GIRISH CHAN MD [facility] SDC [place]ALL[place]ES [id number] 02/26/2016 11:06:00 2015 11:57:00 DIS Outpatient GIRISH CHAN MD [facility] PREOP [place] [id number] 01/25/2016 08:46:00 2015 12:23:00 DIS Emergency GERARD JACINTO MD [facility] ER MARQUISE THIGH PAIN [id number] 01/16/2016 13:40:00 2015 15:30:00 DIS Inpatient GIRISH CHAN MD [facility] 4TH ABD PAIN,BACK PAIN,CHOLELITHIESIS [id number] 06/10/2015 11:36:00 2014 23:59:59 CLS Outpatient MAGALIS FOURNIER [facility] CARD CAD,HTN,KAREN,BRADYCARDIA [id number] 05/26/2015 13:58:00 2014 23:59:59 CLS Outpatient MAGALIS FOURNIER [facility] RAD CAD,CAF, HTN [id number] 10/08/2014 09:52:00 2014 23:59:59 CLS Outpatient JOSE RUSH MD [facility] CARD CAD HTN HLE [id number] 03/31/2014 09:23:00 2013 10:48:00 DIS Emergency MARLEEN GEORGE DO [facility] ER LEFT FOOT INJURY [id number] 09/25/2013 07:20:00 2013 23:59:59 CLS Outpatient JOSE RUSH MD [facility] LAB AR,CAD,CAROTID ANTERY STENOSIS,HTN [id number] 09/16/2013 13:44:00 2013 14:25:00 DIS Emergency NIKOLE PIERRE APRN [facility] ER FALL/RIGHT WRIST PAIN [id number] 06/10/2013 12:49:00 2012 23:59:59 CLS Outpatient JOSE RUSH MD [facility] CARD CAD,HTN,CA STENOSIS,AR [id number] 03/18/2013 18:47:00 2012 21:00:00 DIS Emergency BONITA SELF [facility] ER L ARM PAIN [id number] 12/06/2016 10:09:00 ACT Outpatient JOSE RUSH MD [facility] CARD AR,CAD,CHEST PAIN,HTN,HLP [id number] 09/15/2016 00:09:00 MELITON SANFORD MD, QUANG Arreola [facility] ONC [id number] 01/14/2016 10:55:00 ACT Outpatient SIMÓN MANNING [facility] QUICK [id number] 10/28/2015 07:08:00 ACT Outpatient JOSE RUSH MD [facility] LAB CAD,HTN,HLP,KAREN [id number] 10/07/2014 09:43:00 Document Registration [id number] 10/07/2014 09:43:00 Document Registration [id number] 10/07/2014 09:42:00 Document Registration [id number] 05/10/2012 05:46:00 Document Registration [id number] 05/02/2012 19:16:00 Document Registration [id number] 03/04/2012 15:15:00 Document Registration [id number] 02/07/2012 05:44:00 Document Registration [id number] 01/09/2012 06:59:00 Document Registration [id number] 08/24/2011 11:09:00 Document Registration [id number] 07/29/2011 06:26:00 Document Registration [id number] 02/01/2011 06:11:00 Document Registration [id number] 10/28/2010 06:22:00 Document Registration [id number] 10/19/2010 00:04:00 Document Registration [id number] 01/30/2010 06:11:00 Document Registration [id number] 12/01/2009 08:59:00 Document Registration [id number] 07/02/2009 06:06:00 Document Registration [id number] 06/05/2009 07:23:00 Document Registration
== END 2016-11-30 15:36 | disposition home or self-care (01) ==
LOC: EDUNIT# 14:29 → ER 14:31
DX: J10.1 Influenza due to other identified influenza virus with other respiratory manifestations (principal); R50.9 Fever, unspecified; I10 Essential (primary) hypertension; Z79.82 Long term (current) use of aspirin; Z79.899 Other long term (current) drug therapy; Z79.02 Long term (current) use of antithrombotics/antiplatelets; Z87.891 Personal history of nicotine dependence
CPT/HCPCS: 71020; 87804; 99282

== ENCOUNTER → 2016-12-06 | Outpatient (CLI) | payer MEDICARE ==
[~2016-12-06] MED LIST changes: +ACET-789 PO; +DOCU-143 PO; +OSLT75C PO
--- NOTE | 2016-12-08 08:13 | ECHOCARDIOGRAPHY REPORT ---
PROCEDURE PHYSICIAN: JOSE RUSH DATE OF PROCEDURE: 12/06/2016 TWO DIMENSIONAL ECHOCARDIOGRAM REPORT PRIMARY PHYSICIAN: OTHER PHYSICIAN: REFERRING PHYSICIAN: Dr. Carlos A Sparks ORDERING PHYSICIAN: INDICATION FOR THE PROCEDURE: 1. Aortic regurgitation. 2. Aortic stenosis. MEASUREMENTS DERIVED VALUES LV DIAMETER (LAX) NORMALS NORMALS Diastolic 4.4 (3.6-5.2) Eject. Fract. 60% (60%+/-6%) Systolic (2.3-3.9) Diastolic Vol. % Shortening (0.22-0.42) Systolic Vol. Aortic Root IVS THICKNESS Diastolic 1 (0.6-1.1) LVPW THICKNESS Diastolic 1 (0.6-1.1) LA DIAMETER Systolic 5.2 (2.1-3.7) FINDINGS: 1. Technical quality is good. 2. The left ventricle is normal in size with normal contractility. Mild left ventricular hypertrophy. Systolic function appeared to be normal. Estimated ejection fraction 60%. 3. The left atrium is dilated. No clot or thrombus were seen within the left atrium. 4. The right atrium is prominent. The right ventricle is normal in size. No clot or thrombus were seen within the right side. 5. Mitral valve is calcified with mild mitral regurgitation noted by color Doppler flow. Doppler across the mitral valve showed pseudonormalization suggestive of diastolic dysfunction. 6. Aortic valve is heavily calcified. Doppler across the aortic valve estimated the peak gradient of 29 mmHg, mean gradient of 13 mmHg, calculated valve area of 1.6 sq cm, which is mild aortic valve stenosis. Mild aortic regurgitation noted by color Doppler flow. 7. Tricuspid valve is normal in morphology with mild tricuspid regurgitation noted by color Doppler flow. Doppler across tricuspid valve estimated pulmonary artery pressure of 34+ right atrial pressure. 8. Pulmonic valve is functioning normally. 9. No pericardial effusion. IN CONCLUSION: 1. Mild left ventricular hypertrophy with normal systolic function. Estimated ejection fraction 60%. Diastolic dysfunction is suggested by Doppler. 2. Biatrial enlargement. 3. Calcified mitral valve with mild mitral regurgitation. 4. Mild aortic valve stenosis, trace aortic regurgitation. 5. Mild tricuspid regurgitation. 6. Estimated pulmonary artery pressure of 40 mmHg. Job ID: [id number] Dictated Date: 12/07/2016 16:15:36 Electrical Electronics Engineer Date: 12/08/2016 07:56:30 / rosendo
== END ==
LOC: CARD 10:09
PROVIDERS: ATTEND Internal Medicine Cardiovascular Disease
DX: I35.1 Nonrheumatic aortic (valve) insufficiency (principal); I25.10 Atherosclerotic heart disease of native coronary artery without angina pectoris; I65.23 Occlusion and stenosis of bilateral carotid arteries; R07.9 Chest pain, unspecified; I10 Essential (primary) hypertension; E78.2 Mixed hyperlipidemia
CPT/HCPCS: 93306

== ENCOUNTER 2017-02-22 08:54 | Outpatient (RCR) | payer MEDICARE ==
[2017-01-04 13:02] LABS: BASOPHILS % (AUTO) 0 % (0-10); EOSINOPHILS # (AUTO) 0.2 10^3/uL (0.0-0.3); EOSINOPHILS % (AUTO) 2 % (0-10); LYMPHOCYTES # (AUTO) 3.4 X 10^3 (1.0-4.0); LYMPHOCYTES % (AUTO) 38 % (12-44); MEAN CORPUSCULAR HEMOGLOBIN 30 PG (25-34); MEAN CORPUSCULAR HGB CONC 34 G/DL (32-36); MEAN CORPUSCULAR VOLUME 89 FL (80-99); MEAN PLATELET VOLUME 10.9 FL (7.4-10.4); MONOCYTES # (AUTO) 0.9 X 10^3 (0.0-1.0); MONOCYTES % (AUTO) 10 % (0-12); NEUTROPHILS # (AUTO) 4.5 X 10^3 (1.8-7.8); NEUTROPHILS % (AUTO) 50 % (42-75); PLATELET COUNT 173 10^3/uL (130-400); RED BLOOD COUNT 4.41 10^6/uL (4.35-5.85); RED CELL DISTRIBUTION WIDTH 16.2 % (10.0-14.5); WHITE BLOOD COUNT 9.1 10^3/uL (4.3-11.0)
[2017-01-04 13:20] LABS: ALANINE AMINOTRANSFERASE 15 U/L (0-55); ANION GAP 9 MMOL/L (5-14); ASPARTATE AMINO TRANSFERASE 18 U/L (5-34); BILIRUBIN,TOTAL 0.8 MG/DL (0.1-1.0); BLOOD UREA NITROGEN 21 MG/DL (7-18); BUN/CREATININE RATIO 19; CALCIUM 9.7 MG/DL (8.5-10.1); CARBON DIOXIDE 26 MMOL/L (21-32); CHLORIDE 103 MMOL/L (98-107); CREATININE SERUM 1.13 MG/DL (0.60-1.30); GFR ESTIMATED > 60; GLUCOSE 93 MG/DL (70-105); LACTATE DEHYDROGENASE 226 U/L (125-220); POTASSIUM 4.1 MMOL/L (3.6-5.0); SODIUM 138 MMOL/L (135-145); TOTAL PROTEIN 6.5 G/DL (6.4-8.2)
== END 2017-04-04 | disposition home or self-care (01) ==
LOC: ONC 08:54
PROVIDERS: ATTEND Internal Medicine Hematology & Oncology
DX: D69.6 Thrombocytopenia, unspecified (principal); I25.10 Atherosclerotic heart disease of native coronary artery without angina pectoris; E78.00 Pure hypercholesterolemia, unspecified; K21.9 Gastro-esophageal reflux disease without esophagitis; K44.9 Diaphragmatic hernia without obstruction or gangrene; E78.5 Hyperlipidemia, unspecified; D46.9 Myelodysplastic syndrome, unspecified
CPT/HCPCS: 36415; 80053; 83615; 85025; 99213

== ENCOUNTER 2017-03-31 10:29 | Emergency (ER) | payer MEDICARE ==
[~2017-03-31] VITALS: Ht 157.5 cm; Wt 59.0 kg
--- NOTE | 2017-03-31 10:52 | ED Upper Extremity ---
General Chief Complaint: Laceration Stated Complaint: RT THUMB/FINGER CUT WITH SAW Source: patient Exam Limitations: no limitations History of Present Illness Time seen by provider: 10:51 Initial Comments to ER with a laceration to the tip of the right thumb and right pointer finger. This occurred just prior to arrival using a table saw. Tetanus is up-to-date. Onset: just prior to arrival Severity: moderate Pain/Injury Location: right thumb, right 2nd finger Method of Injury: unknown Modifying Factors: Worse With Movement Allergies and Home Medications Allergies Coded Allergies: Iodinated Contrast Media - IV Dye (Verified Allergy, Unknown, 11/09/06) Home Medications Acetaminophen with Codeine 1 Each Tablet, 1 EACH PO Q8H PRN for COUGH, #10 Prescribed by: NIKOLE PIERRE on 11/30/16 1533 Amlodipine Besylate 10 Mg Tablet, 10 MG PO DAILY, (Reported) Aspirin 81 Mg Tablet.dr, 81 MG PO DAILY, (Reported) Atorvastatin Calcium 40 Mg Tablet, 40 MG PO HS, (Reported) Clopidogrel Bisulfate 75 Mg Tablet, 75 MG PO DAILY, (Reported) Docusate Sodium 100 Mg Capsule, 100 MG PO DAILY for 3 Days, #10 Prescribed by: NIKOLE PIERRE on 11/30/16 1533 Enalapril Maleate 10 Mg Tablet, 10 MG PO BID, (Reported) Hydrocodone/Acetaminophen 1 Each Tablet, 1-2 EACH PO Q4H, #35 Prescribed by: GIRISH CHAN on 03/04/16 1034 Metoprolol Succinate 100 Mg Tab.er.24h, 100 MG PO DAILY, (Reported) [place]-3 Fatty Acids/Fish Oil 1 Each Capsule, 1,200 MG PO TID, (Reported) Oseltamivir Phosphate 75 Mg Cap, 75 MG PO BID, #10 Prescribed by: NIKOLE PIERRE on 11/30/16 1533 Constitutional: see HPI EENTM: see HPI Respiratory: no symptoms reported Cardiovascular: no symptoms reported Genitourinary: no symptoms reported Musculoskeletal: no symptoms reported Skin: no symptoms reported Psychiatric/Neurological: No Symptoms Reported Past Zonqftp-Jkcyhn-Chjcra Hx Patient Social History Type Used: Cigarettes Former Smoker/When Quit: May 10, 2012 Recent Hopitalizations: No Immunizations Up To Date Tetanus Booster (TDap): Less than 5yrs Date of Pneumonia Vaccine: Jul 10, 2011 Date of Influenza Vaccine: May 28, 2011 Surgeries HX Surgeries: Yes (HERNIA X2, STENT IN HEART 2003) Respiratory Hx Respiratory Disorders: No Cardiovascular Hx Cardiac Disorders: Yes (STENT) Cardiac Disorders: High Cholesterol, Hypertension Neurological Hx Neurological Disorders: Yes Reproductive System Hx Reproductive Disorders: No Sexually Transmitted Disease: No HIV/AIDS: No Genitourinary Hx Genitourinary Disorders: No Gastrointestinal Hx Gastrointestinal Disorders: Yes Gastrointestinal Disorders: Hiatal Hernia Musculoskeletal Hx Musculoskeletal Disorders: Yes Musculoskeletal Disorders: Arthritis Endocrine Hx Endocrine Disorders: No HEENT HX ENT Disorders: Yes HEENT Disorders: Cataract Hearing Impairment: Denies Cancer Hx Cancer: No Psychosocial Hx Psychiatric Problems: No Integumentary HX Skin/Integumentary Disorder: No Blood Transfusions Hx Blood Disorders: No Adverse Reaction to a Blood Tr: No Family Medical History Significant Family History: No Pertinent Family Hx Physical Exam Vital Signs Capillary Refill : General Appearance: WD/WN, no apparent distress HEENT: PERRL/EOMI, normal ENT inspection Neck: non-tender, full range of motion Respiratory: no respiratory distress, no accessory muscle use Gastrointestinal: normal bowel sounds, non tender, soft Shoulder: normal inspection, non-tender Elbow/Forearm: normal inspection, non-tender, Right Wrist: Yes normal inspection, Yes non-tender Hand: non-tender, Right, laceration (small 0.5 cm but actively bleeding laceration to the tip of the right thumb. This was closed with glue. A larger skin avulsion to the radial side of the tip of the right pointer finger. There is nothing to suture here. This was wrapped with Xeroform gauze and tube gauze. ) Neurologic/Psychiatric: alert, normal mood/affect, oriented x 3 Skin: normal color, warm/dry Laceration Repair : Suture Size: 5-0 Departure Impression Impression: Primary Impression: Finger laceration Disposition: 01 HOME, SELF-CARE Condition: Stable Departure-Patient Inst. Decision time for Depature: 10:52 Referrals: NAMRATA SHAW MD (PCP/Family) Primary Care Physician Patient Instructions: Laceration Repair With Glue (DC) Add. Discharge Instructions: 1. The glue will follow off on its own in 3-5 days 2. On the pointer finger U should remove this dressing tomorrow evening and replaced with a simple Band-Aid. This will take a few weeks to heal. 3. Return to ER for any concerns 4. All discharge instructions reviewed with patient and/or family. Voiced understanding. NIKOLE PIERRE PRODUCTION WEIGHER Mar 31, 2017 10:52
[2017-03-31 10:59] VITALS: BP 134/72
== END 2017-03-31 10:59 | disposition home or self-care (01) ==
LOC: EDUNIT# 10:29 → ER 10:32
DX: S61.011A Laceration without foreign body of right thumb without damage to nail, initial encounter (principal); S61.210A Laceration without foreign body of right index finger without damage to nail, initial encounter; E78.00 Pure hypercholesterolemia, unspecified; I10 Essential (primary) hypertension; M19.90 Unspecified osteoarthritis, unspecified site; Z79.82 Long term (current) use of aspirin; Z95.5 Presence of coronary angioplasty implant and graft; W29.8XXA Contact with other powered hand tools and household machinery, initial encounter

== ENCOUNTER → 2017-06-14 | Outpatient (CLI) | payer MEDICARE ==
[~2017-06-14] MED LIST changes: +CATHETER FLUSH 10 ML SYR IV PRN; +REGADENOSON 0.4 MG/5 ML SYR (LEXISCAN) IV ONE
[2017-06-14 09:09] VITALS: BP 186/67
[2017-06-14 09:13] VITALS: BP 165/66
[2017-06-14 09:16] VITALS: BP 167/68
--- NOTE | 2017-06-15 08:44 | STRESS TEST ---
DATE OF SERVICE: 06/14/2017 LEXISCAN MYOVIEW STRESS TEST REPORT Baseline heart rate is 70. Baseline blood pressure is 186/67. Baseline EKG is sinus rhythm with right bundle branch block. SUMMARY: The patient received 10.80 mCi of technetium-99 Myoview and the resting images were obtained. Then, the patient received 0.4 mg of Lexiscan followed by 32.0 mCi of technetium-99 Myoview. Throughout the test, there were no EKG changes. The resting and stress images were reviewed and compared in the short axis, horizontal long axis, and vertical long axis views. Review of the images showed diaphragmatic attenuation with decreased uptake at the mid to apical inferior wall and inferolateral wall with subtle reversibility. SSS is 5, SDS 5, TID value 0.95. On the gated images, the left ventricle appeared to be normal size with normal contractility. Calculated ejection fraction is 62%. CONCLUSION: 1. The patient tolerated Lexiscan well. 2. Baseline hypertension persisted throughout test. 3. Diaphragmatic attenuation with mild decreased uptake at the mid to apical inferior wall and inferolateral wall with subtle reversibility most probably due to the diaphragmatic attenuation. 4. Normal left ventricular size with normal contractility. Calculated ejection fraction is 62%. Job ID: [id number] DocumentID: [id number] Dictated Date: 06/14/2017 13:38:41 Automatic Screwmaker Date: 06/14/2017 22:27:29 Dictated By: JOSE RUSH MD
== END ==
LOC: CARD 07:12
PROVIDERS: ATTEND Physician Assistant
DX: I35.1 Nonrheumatic aortic (valve) insufficiency (principal); I25.10 Atherosclerotic heart disease of native coronary artery without angina pectoris; I65.23 Occlusion and stenosis of bilateral carotid arteries; I10 Essential (primary) hypertension
CPT/HCPCS: 78452; 93017

== ENCOUNTER 2018-01-03 09:12 | Outpatient (RCR) | payer MEDICARE ==
[~2018-01-03 09:12] MED LIST changes: -CATHETER FLUSH 10 ML SYR IV PRN; -METO-274 PO; +METO-395 PO; +NAPR-1070 PO; -NAPR550T PO; -REGADENOSON 0.4 MG/5 ML SYR (LEXISCAN) IV ONE
[2018-01-03 09:27] LABS: BASOPHILS % (AUTO) 0 % (0-10); EOSINOPHILS # (AUTO) 0.2 10^3/uL (0.0-0.3); EOSINOPHILS % (AUTO) 2 % (0-10); HEMATOCRIT 41 % (40-54); HEMOGLOBIN 14.3 G/DL (13.3-17.7); LYMPHOCYTES # (AUTO) 2.7 X 10^3 (1.0-4.0); LYMPHOCYTES % (AUTO) 31 % (12-44); MEAN CORPUSCULAR HEMOGLOBIN 31 PG (25-34); MEAN CORPUSCULAR HGB CONC 35 G/DL (32-36); MEAN CORPUSCULAR VOLUME 88 FL (80-99); MEAN PLATELET VOLUME 9.9 FL (7.4-10.4); MONOCYTES % (AUTO) 11 % (0-12); NEUTROPHILS # (AUTO) 4.8 X 10^3 (1.8-7.8); NEUTROPHILS % (AUTO) 55 % (42-75); PLATELET COUNT 193 10^3/uL (130-400); RED BLOOD COUNT 4.67 10^6/uL (4.35-5.85); RED CELL DISTRIBUTION WIDTH 15.5 % (10.0-14.5); WHITE BLOOD COUNT 8.7 10^3/uL (4.3-11.0)
[2018-01-03 09:49] LABS: ALANINE AMINOTRANSFERASE 17 U/L (0-55); ALBUMIN 4.2 GM/DL (3.2-4.5); ALKALINE PHOSPHATASE 107 U/L (40-136); BILIRUBIN,TOTAL 0.8 MG/DL (0.1-1.0); BUN/CREATININE RATIO 15; CALCIUM 9.9 MG/DL (8.5-10.1); CARBON DIOXIDE 27 MMOL/L (21-32); CHLORIDE 105 MMOL/L (98-107); CREATININE SERUM 1.02 MG/DL (0.60-1.30); GFR ESTIMATED > 60; GLUCOSE 105 MG/DL (70-105); SODIUM 141 MMOL/L (135-145); TOTAL PROTEIN 6.6 GM/DL (6.4-8.2)
== END 2018-02-27 08:15 | disposition home or self-care (01) ==
LOC: ONC 09:12
PROVIDERS: ATTEND Internal Medicine Hematology & Oncology
DX: D69.6 Thrombocytopenia, unspecified (principal); I25.10 Atherosclerotic heart disease of native coronary artery without angina pectoris; E78.00 Pure hypercholesterolemia, unspecified; K21.9 Gastro-esophageal reflux disease without esophagitis; K44.9 Diaphragmatic hernia without obstruction or gangrene; E78.5 Hyperlipidemia, unspecified; D46.9 Myelodysplastic syndrome, unspecified
CPT/HCPCS: 36415; 80053; 82232; 83615; 85025; 99213

== ENCOUNTER 2018-02-27 08:18 | Outpatient (RCR) | payer MEDICARE ==
[~2018-02-27 08:18] MED LIST changes: -AMLO10TA2 PO; +AMLO10TA6 PO
== END 2018-03-27 | disposition home or self-care (01) ==
LOC: ONC 08:18
PROVIDERS: ATTEND Internal Medicine Hematology & Oncology
DX: D69.6 Thrombocytopenia, unspecified (principal); I25.10 Atherosclerotic heart disease of native coronary artery without angina pectoris; E78.00 Pure hypercholesterolemia, unspecified; K21.9 Gastro-esophageal reflux disease without esophagitis; K44.9 Diaphragmatic hernia without obstruction or gangrene; E78.5 Hyperlipidemia, unspecified; D46.9 Myelodysplastic syndrome, unspecified

== ENCOUNTER 2018-08-11 04:39 | Observation (INO) | payer MEDICARE ==
[~2018-08-11] VITALS: Ht 157.5 cm; Wt 68.2 kg
[2018-08-11] MEDS ORDERED: NS IV 1000 ML 1,000 ML IV SCH (04:46)
[2018-08-11] MEDS ORDERED: LOSA100T8 (04:47)
[2018-08-11 04:58] LABS: BASOPHILS % (AUTO) 0 % (0-10); EOSINOPHILS # (AUTO) 0.1 10^3/uL (0.0-0.3); EOSINOPHILS % (AUTO) 1 % (0-10); HEMATOCRIT 42 % (40-54); HEMOGLOBIN 14.6 G/DL (13.3-17.7); LYMPHOCYTES # (AUTO) 1.5 X 10^3 (1.0-4.0); LYMPHOCYTES % (AUTO) 14 % (12-44); MEAN CORPUSCULAR HEMOGLOBIN 31 PG (25-34); MEAN CORPUSCULAR HGB CONC 35 G/DL (32-36); MEAN CORPUSCULAR VOLUME 89 FL (80-99); MONOCYTES # (AUTO) 1.1 X 10^3 (0.0-1.0); MONOCYTES % (AUTO) 11 % (0-12); NEUTROPHILS # (AUTO) 7.9 X 10^3 (1.8-7.8); NEUTROPHILS % (AUTO) 75 % (42-75); PLATELET COUNT 190 10^3/uL (130-400); RED CELL DISTRIBUTION WIDTH 15.4 % (10.0-14.5); WHITE BLOOD COUNT 10.5 10^3/uL (4.3-11.0)
[2018-08-11] MEDS ORDERED: ONDANSETRON 4 MG/2 ML (SDV) Z0FRAN IV PRN (05:00)
--- NOTE | 2018-08-11 05:02 | ED GI ---
General Chief Complaint: Abdominal/GI Problems Stated Complaint: N,V Nursing Triage Note: n/v Sepsis Screen: No Definite Risk Source of Information: Patient, EMS Exam Limitations: Other (hard of hearing) History of Present Illness Date Seen by Provider: Aug 11, 2018 Time Seen by Provider: 04:43 Initial Comments Patient presents to ER by EMS from his home in [place] with chief complaint that he is having nausea and vomiting. This started getting nauseated around 7: 00 last night and by 8:00 was vomiting throughout the night he says he ran out of stomach contents and was mostly dry heaving by the time EMS arrived. No Zofran was given. No IV. Patient denies any fevers or chills. He says his brother about a week ago was sick with same stuff had nausea vomiting for about a week and end up having to take a tablet from a doctor's office to get over it. He does have a history of heart disease with stents. He is on Plavix atorvastatin metoprolol losartan. He is not having any pain anywhere nor swelling in his feet nor shortness of breath, orthopnea or productive cough. Allergies and Home Medications Allergies Coded Allergies: Iodinated Contrast- Oral and IV Dye (Verified Allergy, Unknown, 11/09/06) Home Medications Amlodipine Besylate 10 Mg Tablet, 10 MG PO DAILY, (Reported) Aspirin 81 Mg Tablet.dr, 81 MG PO DAILY, (Reported) Atorvastatin Calcium 40 Mg Tablet, 40 MG PO HS, (Reported) Clopidogrel Bisulfate 75 Mg Tablet, 75 MG PO DAILY, (Reported) Docusate Sodium 100 Mg Capsule, 100 MG PO DAILY Prescribed by: NIKOLE PIERRE on 11/30/16 1533 Metoprolol Succinate 100 Mg Tab.er.24h, 100 MG PO DAILY, (Reported) Patient Home Medication List Home Medication List Reviewed: Yes Review of Systems Review of Systems Constitutional: No chills, No diaphoresis, No fever, No malaise EENTM: No Blurred Vision, No Double Vision Respiratory: Cough; Denies Orthopnea, Denies Shortness of Air, Denies Wheezing Cardiovascular: Denies Chest Pain, Denies Edema, Denies Lightheadedness Gastrointestinal: Denies Abdomen Distended, Denies Abdominal Pain, Denies Blood Streaked Stools, Denies Constipated, Denies Diarrhea; Nausea; Denies Poor Fluid Intake; Vomiting Genitourinary: Denies Burning, Denies Discharge Musculoskeletal: No back pain, No joint pain Past Ioysupw-Dcrdar-[place]tl[place]o Hx Patient Social History Alcohol Use: Denies Use Recreational Drug Use: No Smoking Status: Former Smoker Type Used: Cigarettes Former Smoker, Quit: Feb 25, 1950 2nd Hand Smoke Exposure: No Recent Foreign Travel: No Contact w/Someone Who Travel: No Recent Infectious Disease Expo: No Recent Hopitalizations: No Immunizations Up To Date Tetanus Booster (TDap): Less than 5yrs Date of Pneumonia Vaccine: Jul 10, 2011 Date of Influenza Vaccine: May 28, 2011 Seasonal Allergies Seasonal Allergies: No Past Medical History Surgeries: Yes (HERNIA X2, STENT IN HEART 2003) Coronary Stent Respiratory: No Cardiac: Yes (STENT) Coronary Artery Disease, High Cholesterol, Hypertension Neurological: No Reproductive Disorders: No Sexually Transmitted Disease: No HIV/AIDS: No Genitourinary: No Gastrointestinal: Yes Hiatal Hernia Musculoskeletal: Yes Arthritis Endocrine: No Cataract Hearing Impairment: Hard of Hearing Cancer: No Psychosocial: No Integumentary: No Blood Disorders: No Adverse Reaction/Blood Tranf: No Family Medical History No Pertinent Family Hx Physical Exam Vital Signs Vital Signs - First Documented 08/11/18 04:40 Temp 97.7 Pulse 83 Resp 20 B/P (MAP) 130/81 (97) Pulse Ox 94 O2 Delivery Room Air Capillary Refill : Less Than 3 Seconds Height/Weight/BMI Height: 5'2.00" Weight: 150lbs. 0oz. 68.877812dy; 23.03 BMI Method:Stated General Appearance: WD/WN, no apparent distress HEENT: PERRL/EOMI, pharynx normal (mildly dry) Neck: non-tender, full range of motion, normal inspection Respiratory: chest non-tender, lungs clear, normal breath sounds, no respiratory distress, no accessory muscle use Cardiovascular: normal peripheral pulses, regular rate, rhythm, no edema, no murmur Peripheral Pulses: 2+ Radial Pulses (R), 2+ Radial Pulses (L) Gastrointestinal: normal bowel sounds, non tender, soft Extremities: normal range of motion, non-tender, normal inspection, no pedal edema, normal capillary refill Neurologic/Psychiatric: alert, oriented x 3 Skin: normal color, warm/dry Focused Exam Lactate Level 08/11/18 04:47: Lactic Acid Level 2.15*H Lactic Acid Level Laboratory Tests Test 08/11/18 04:47 Lactic Acid Level 2.15 MMOL/L (0.50-2.00) *H Procedures/Interventions Suture Size: 5-0 Progress/Results/Core Measures Results/Orders Lab Results Laboratory Tests Test 08/11/18 04:47 08/11/18 05:32 Range/Units White Blood Count 10.5 4.3-11.0 10^3/uL Red Blood Count 4.70 4.35-5.85 10^6/uL Hemoglobin 14.6 13.3-17.7 G/DL Hematocrit 42 40-54 % Mean Corpuscular Volume 89 80-99 FL Mean Corpuscular Hemoglobin 31 25-34 PG Mean Corpuscular Hemoglobin Concent 35 32-36 G/DL Red Cell Distribution Width 15.4 H 10.0-14.5 % Platelet Count 190 130-400 10^3/uL Mean Platelet Volume 11.0 H 7.4-10.4 FL Neutrophils (%) (Auto) 75 42-75 % Lymphocytes (%) (Auto) 14 12-44 % Monocytes (%) (Auto) 11 0-12 % Eosinophils (%) (Auto) 1 0-10 % Basophils (%) (Auto) 0 0-10 % Neutrophils # (Auto) 7.9 H 1.8-7.8 X 10^3 Lymphocytes # (Auto) 1.5 1.0-4.0 X 10^3 Monocytes # (Auto) 1.1 H 0.0-1.0 X 10^3 Eosinophils # (Auto) 0.1 0.0-0.3 10^3/uL Basophils # (Auto) 0.0 0.0-0.1 10^3/uL Prothrombin Time 13.5 12.2-14.7 SEC INR Comment 1.0 0.8-1.4 Activated Partial Thromboplast Time 31 24-35 SEC Sodium Level 140 135-145 MMOL/L Potassium Level 3.9 3.6-5.0 MMOL/L Chloride Level 105 98-107 MMOL/L Carbon Dioxide Level 21 21-32 MMOL/L Anion Gap 14 5-14 MMOL/L Blood Urea Nitrogen 18 7-18 MG/DL Creatinine 1.11 0.60-1.30 MG/DL Estimat Glomerular Filtration Rate > 60 BUN/Creatinine Ratio 16 Glucose Level 137 H 70-105 MG/DL Lactic Acid Level 2.15 *H 0.50-2.00 MMOL/L Calcium Level 10.4 H 8.5-10.1 MG/DL Corrected Calcium 10.0 8.5-10.1 MG/DL Total Bilirubin 1.0 0.1-1.0 MG/DL Aspartate Amino Transf (AST/SGOT) 20 5-34 U/L Alanine Aminotransferase (ALT/SGPT) 19 0-55 U/L Alkaline Phosphatase 109 40-136 U/L Troponin I < 0.30 <0.30 NG/ML Total Protein 7.4 6.4-8.2 GM/DL Albumin 4.5 3.2-4.5 GM/DL Urine Color YELLOW Urine Clarity CLEAR Urine pH 5 5-9 Urine Specific [place] 1.025 H 1.016-1.022 Urine Protein 2+ H NEGATIVE Urine Glucose (UA) NEGATIVE NEGATIVE Urine Ketones 1+ H NEGATIVE Urine Nitrite NEGATIVE NEGATIVE Urine Bilirubin NEGATIVE NEGATIVE Urine Urobilinogen NORMAL NORMAL MG/DL Urine Leukocyte Esterase NEGATIVE NEGATIVE Urine RBC (Auto) NEGATIVE NEGATIVE Urine RBC NONE /HPF Urine WBC NONE /HPF Urine Squamous Epithelial Cells 5-10 /HPF Urine Crystals NONE /LPF Urine Bacteria NEGATIVE /HPF Urine Casts NONE /LPF Urine Mucus LARGE H /LPF Urine Culture Indicated NO My Orders Orders - ALEXEI GALEAS Cbc With Automated Diff (08/11/18 04:46) Comprehensive Metabolic Panel (08/11/18 04:46) Blood Culture (08/11/18 04:46) Sputum Culture (08/11/18 04:46) Urinalysis (08/11/18 04:46) Urine Culture (08/11/18 04:46) Protime With Inr (08/11/18 04:46) Partial Thromboplastin Time (08/11/18 04:46) Chest 1 View, Ap/Pa Only (08/11/18 04:46) Saline Lock/Iv-Start (08/11/18 04:46) Saline Lock/Iv-Start (08/11/18 04:46) Ekg Tracing (08/11/18 04:46) Troponin I (08/11/18 04:46) Vital Signs Adult Sepsis Patie Q15M (08/11/18 04:46) Ondansetron Injection (Zofran Injectio (08/11/18 05:00) O2 (08/11/18 04:46) Remove Rings In Anticipation O (08/11/18 04:46) Lactic Acid Analyzer (08/11/18 04:46) Ns Iv 1000 Ml (Sodium Chloride 0.9%) (08/11/18 04:46) Saline Lock/Iv-Start (08/11/18 05:18) Ns Iv 500 Ml (Sodium Chloride 0.9%) (08/11/18 05:18) Apixaban Tablet (Eliquis Tablet) (08/11/18 06:15) Medications Given in ED Current Medications Medications Dose Ordered Sig/Benji Route Start Time Stop Time Status Last Admin Dose Admin Ondansetron HCl 4 mg PRN PRN IV 08/11/18 05:00 08/11/18 05:00 DC 08/11/18 04:56 4 MG Sodium Chloride 500 ml @ 0 mls/hr Q0M ONCE IV 08/11/18 05:18 08/11/18 05:20 DC 08/11/18 05:22 0 MLS/HR Vital Signs/I&O 08/11/18 08/11/18 04:40 04:40 Temp 97.7 Pulse 83 Resp 20 B/P (MAP) 130/81 (97) Pulse Ox 94 94 O2 Delivery Room Air Room Air Blood Pressure Mean: 97 Progress Progress Note : Time: 05:02 Progress Note We'll approach the possibility of atypical angina versus acute belly versus viral gastroenteritis most likely. He is not very tender on examination. We'll start with 4 of Zofran and some IV fluids 1 L which would be between 10 and 20 cc/kg. We'll get some urine and labs before we declare the sepsis. His vital signs are fairly benign. Heart rate in the 70s and 90s but with atrial fibrillation. He is not on blood thinners and states she's never been in atrial fibrillation before. Echocardiogram [address] Triplett with mild left ventricular hypertrophy with normal systolic function and EF of 60% with diastolic dysfunction. Mild aortic valve stenosis, mitral regurgitation and tricuspid regurgitation. Cardiac catheterization 2009 50% ostial left main stenosis. 50% mid LAD stenosis. 80% ostial diagonal artery stenosis not amenable to intervention. 90% ostial circumflex artery not amenable to intervention. Small right coronary artery with diffuse disease in spasm. Initial ECG Impression Date: Aug 11, 2018 Initial ECG Impression Time: 04:51 Initial ECG Rate: 83 Initial ECG Rhythm: A Fib/Flutter Initial ECG Intervals: QT (485) Initial ECG Impression: Atrial Fibrillation Initial ECG Comparisson: Changed Comment Right bundle-branch block was seen previously but the atrial fibrillation is new. No ST changes Diagnostic Imaging Diagonstic Imaging: Xray Plain Films/CT/US/NM/MRI: chest (1v) Comments Unremarkable heart shadow and no pulmonary infiltrates seen. Reviewed: Reviewed by Me Departure Communication (Admissions) Time/Spoke to Admitting Phy: 06:00 Discussed the case lab imaging and findings with Dr. Kirby and she agrees to observe the patient for his viral gastroenteritis and new onset atrial fibrillation she agrees with starting Eliquis stopping the Plavix and consult Dr. Flores in the morning. Impression Primary Impression: Viral gastroenteritis Additional Impression: New onset atrial fibrillation Disposition: ADMITTED INPATIENT Condition: Stable Admissions Decision to Admit Reason: Admit from ER (General) Decision to Admit/Date: Aug 11, 2018 Time/Decision to Admit Time: 06:09 Departure-Patient Inst. Referrals: NAMRATA SHAW MD (PCP/Family) Primary Care Physician Copy Copies To 1: NAMRATA SHAW MD; JOSE TRIPLETT MD, TITUS J Aug 11, 2018 05:02
[2018-08-11 05:13] LABS: PROTHROMBIN TIME PATIENT 13.5 SEC (12.2-14.7)
[2018-08-11] MEDS ORDERED: NS IV 500 ML 500 ML IV ONE (05:18)
[2018-08-11 05:19] LABS: ALANINE AMINOTRANSFERASE 19 U/L (0-55); ALBUMIN 4.5 GM/DL (3.2-4.5); ALKALINE PHOSPHATASE 109 U/L (40-136); BUN/CREATININE RATIO 16; CALCIUM 10.4 MG/DL (8.5-10.1); CARBON DIOXIDE 21 MMOL/L (21-32); CHLORIDE 105 MMOL/L (98-107); CREATININE SERUM 1.11 MG/DL (0.60-1.30); GFR ESTIMATED > 60; GLUCOSE 137 MG/DL (70-105); POTASSIUM 3.9 MMOL/L (3.6-5.0); SODIUM 140 MMOL/L (135-145); TOTAL PROTEIN 7.4 GM/DL (6.4-8.2)
[2018-08-11 05:37] LABS: BILIRUBIN,URINE NEGATIVE (NEGATIVE); CLARITY,URINE CLEAR; COLOR,URINE YELLOW; GLUCOSE, URINE (UA) NEGATIVE (NEGATIVE); KETONES,URINE 1+ (NEGATIVE); LEUKOCYTE ESTERASE ,URINE NEGATIVE (NEGATIVE); NITRITE,URINE NEGATIVE (NEGATIVE); PH,URINE 5 (5-9); PROTEIN,URINE 2+ (NEGATIVE); UROBILINOGEN,URINE NORMAL (NORMAL)
[2018-08-11 05:46] LABS: BACTERIA,URINE NEGATIVE /HPF
[2018-08-11] MEDS ORDERED: APIXABAN 5 MG (ELIQUIS) TABLET ONE (06:04)
[2018-08-11] MEDS ORDERED: APIXABAN 5 MG (ELIQUIS) TABLET PO ONE (06:15)
--- OUTSIDE RECORDS SUMMARY | 2018-08-11 06:27 | XMS REPORT | Continuity of Care Document ---
Author Author [facility] Organization [facility] Address Unknown Phone Unavailable Allergies Active Description Code Type Severity Reaction Onset Reported/Identified Relationship to Patient Clinical Status Yes NO KNOWN DRUG ALLERGIES NO KNOWN DRUG ALLERG UNKNOWN Yes CONTRAST DYE MODERATE OTHER Yes NO KNOWN DRUG ALLERGIES UNKNOWN NO KNOWN DRUG ALLERG Yes Iodinated Contrast Media - IV Dye [id number] Drug Allergy Unknown N/A 11/09 Yes Iodinated Contrast Media - Oral and [id number] Drug Allergy Unknown N/A Yes Iodinated Contrast- Oral and IV Dye [id number] Drug Allergy Unknown N/A Medications There is no data. 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, UNSPECIFIED SAMUEL TERAN MD Ot D69.6 THROMBOCYTOPENIA, UNSPECIFIED SAMUEL TERAN MD Ot E78.00 PURE HYPERCHOLESTEROLEMIA, UNSPECIFIED SAMUEL TERAN MD Ot E78.5 HYPERLIPIDEMIA, UNSPECIFIED SAMUEL TERAN MD Ot I25.10 ATHSCL HEART DISEASE OF [place] CORONARY SAMUEL TERAN MD Ot K21.9 GASTRO-ESOPHAGEAL REFLUX DISEASE WITHOUT SAMUEL TERAN MD Ot K44.9 DIAPHRAGMATIC HERNIA WITHOUT OBSTRUCTION 10/19/2010 Ot 723.1 CERVICALGIA 03/06/2012 Ot 272.4 HYPERLIPIDEMIA NEC/NOS 03/06/2012 Ot 275.2 DIS MAGNESIUM METABOLISM 03/06/2012 Ot 276.51 DEHYDRATION 03/06/2012 Ot 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 OF [place] CORON 03/06/2012 Ot 458.9 HYPOTENSION NOS 03/06/2012 [...] NOS 05/04/2012 Ot 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 OF [place] CORON 05/04/2012 Ot 550.10 UNILAT ING HERNIA W OBST 05/04/2012 Ot 603.9 HYDROCELE NOS 05/04/2012 Ot V45.82 PERCUTANEOUS TRANSLUM CORON ANGIOPLASTY 05/11/2012 Ot 550.90 UNILAT INGUINAL HERNIA 03/18/2013 BONITA SELF Ot 412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 03/18/2013 BONITA SELF Ot 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 OF [place] CORON 03/18/2013 BONITA SELF Ot 729.5 PAIN [...] 03/18/2013 BONITA SELF Ot V58.63 LONG-TERM(CURRENT)USE OF ANTIPLATELET/AN 03/18/2013 BONITA SELF Ot V58.66 LONG-TERM (CURRENT) USE OF ASPIRIN 03/18/2013 BONITA SELF Ot V58.69 OTH MED,LT,CURRENT USE 09/16/2013 NIKOLE PIERRE APRN Ot 842.00 SPRAIN OF WRIST NOS 09/16/2013 NIKOLE PIERRE APRN Ot 959.3 ELB/FOREARM/WRST INJ NOS 09/16/2013 NIKOLE PIERRE APRN Ot E000.8 OTHER EXTERNAL CAUSE STATUS 09/16/2013 NIKOLE PIERRE APRN Ot E885.9 FALL FROM SLIPPING, TRIPPING, OR STUMBLI 03/31/2014 MARLEEN GEORGE DO Ot 366.9 CATARACT NOS 03/31/2014 MARLEEN GEORGE DO Ot 401.9 HYPERTENSION NOS 03/31/2014 MARLEEN GEORGE DO Ot 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 OF [place] CORON 03/31/2014 MARELEN GEORGE DO Ot 728.71 PLANTAR FIBROMATOSIS 03/31/2014 MARLEEN GEORGE DO Ot V12.54 PERSONAL HX OF TIA, CEREBRAL INFARCTION 03/31/2014 MARLEEN GEORGE DO Ot V45.82 PERCUTANEOUS TRANSLUM CORON ANGIOPLASTY 03/31/2014 MARLEEN GEORGE DO Ot V58.61 ANTICOAGULANTS,LT,CURRENT USE 03/31/2014 MARLEEN GEORGE DO Ot V58.63 LONG-TERM(CURRENT)USE OF ANTIPLATELET/AN 03/31/2014 MARLEEN GEORGE DO Ot V58.69 OTH MED,LT,CURRENT USE 10/07/2014 Ot [...] ADRI ROSALES, JOSE Vines Ot 401.9 10/09/2014 ADRI ROSALES, JOSE Vines Ot 414.00 10/09/2014 ADRI ROSALES, JOSE Vines [...] ROSALES, JOSE Vines Ot 424.1 11/18/2014 ADRI ROASLES, JOSE Vines Ot 433.10 11/18/2014 ADRI ROSALES, [...] Vines Ot 424.0 04/10/2015 ADRI ROSALES, JOSE Vnies Ot 433.10 05/26/2015 Ot 272.4 05/26/2015 Ot [...] Vines Ot 396.3 05/26/2015 ADRI ROSALES, JOSE J Ot 397.0 05/26/2015 ADRI ROSALES, JOSE J Ot 401.9 05/26/2015 ADRI ROSALES, JOSE J Ot 414.00 05/26/2015 ADRI ROSALES, JOSE J Ot 424.1 05/26/2015 ADRI ROSALES, JOSE J Ot 433.10 05/26/2015 ADRI ROSALES, JOSE J Ot 272.4 05/26/2015 ADRI ROSALES, JOSE J Ot 401.9 05/26/2015 ADRI ROSALES, JOSE Vines Ot 414.00 05/26/2015 ADRI ROSALES, JOSE Vines Ot 424.1 05/26/2015 ADRI ROSALES, JOSE Vines Ot 433.10 05/26/2015 ADRI ROSALES, JOSE Vines Ot 272.4 05/26/2015 ADRI ROSALES, JOSE Vines Ot 401.9 05/26/2015 ADRI ROSALES, JOSE Vines Ot 414.00 05/26/2015 ADRI ROSALES, JOSE Vines Ot 424.0 05/26/2015 ADRI ROSALES, JOSE Vines Ot 433.10 06/18/2015 MIKE-SAE PA, MAGALIS Arreola Ot 401.9 06/18/2015 MCKEON-SAE PA, MAGALIS Arreola Ot 414.9 06/18/2015 MCKEON-SAE PA, MAGALIS Arreola Ot 424.1 06/18/2015 MCKEON-SAE PA, MAGALIS Arreola Ot 427.89 06/18/2015 MCKEON-SAE PA, MAGALIS Elba Ot 433.10 07/06/2015 MCKEON-SAE PA, MAGALIS K Ot 401.9 07/06/2015 MCKEON-SAE PA, MAGALIS K Ot 414.9 07/06/2015 MCKEON-SAE PA, MAGALIS K Ot 424.1 07/06/2015 MCKEON-SAE PA, MAGALIS K Ot 427.89 07/06/2015 MCKEON-SAE PA, MAGALIS Arreola Ot 433.10 07/20/2015 MCKEON-SAE PA, MAGALIS Arreola Ot I10 07/20/2015 MCKEON-SAE PA, MAGALIS Arreola Ot I25.10 07/20/2015 MCKEONSAE PA, MAGALIS Arreola Ot I35.1 07/20/2015 MCKEONSAE PA, MAGALIS Arreola Ot I65.29 07/20/2015 MCKEONSAE PA, MAGALIS Arreola Ot R00.1 08/04/2015 JUNE PA, MAGALIS Arreola Ot I10 08/04/2015 MCKEONSAE PA, MAGALIS Arreola Ot I25.10 08/04/2015 MCKEONSAE PA, MAGALIS Arreola Ot I35.1 08/04/2015 MCKEONSAE PA, MAGALIS Arreola Ot I65.29 08/04/2015 MCKEONSAE PA, MAGALIS Arreola Ot R00.1 11/17/2015 ADRI ROSALES, JOSE Vines Ot E78.2 11/17/2015 ADRI ROSALES, JOSE Vines Ot I10 11/17/2015 ADRI ROSALES, JOSE Vines Ot I25.10 11/17/2015 ADRI ROSALES, JOSE Vines Ot I65.23 01/19/2016 GIRISH CHAN MD Ot D69.6 THROMBOCYTOPENIA, UNSPECIFIED 01/19/2016 GIRSIH CHAN MD Ot D70.9 NEUTROPENIA, UNSPECIFIED 01/19/2016 GIRISH CHAN MD Ot E78.0 PURE HYPERCHOLESTEROLEMIA 01/19/2016 GIRISH CHAN MD Ot E78.5 HYPERLIPIDEMIA, UNSPECIFIED 01/19/2016 GIRISH CHAN MD Ot I25.10 ATHSCL HEART DISEASE OF [place] CORONARY 01/19/2016 GIRISH CHAN MD Ot K21.9 [...] MD Ot I25.10 ATHSCL HEART DISEASE OF [place] CORONARY 01/19/2016 GIRISH CHAN MD Ot K21.9 GASTRO-ESOPHAGEAL REFLUX DISEASE WITHOUT 01/19/2016 GIRISH CHAN MD Ot K44.9 DIAPHRAGMATIC HERNIA WITHOUT OBSTRUCTION 01/19/2016 GIRISH CHAN MD Ot K80.10 CALCULUS OF GALLBLADDER W CHRONIC CHOLEC 01/19/2016 GIRISH CHAN MD Ot R10.11 RIGHT UPPER QUADRANT PAIN 01/25/2016 ORVILLE ROSALES, GERARD Arreola Ot M25.551 PAIN IN RIGHT HIP 01/25/2016 W 719.46 PAIN IN JOINT INVOLVING LOWER LEG 01/25/2016 W M25.561 PAIN IN RIGHT KNEE 01/27/2016 A 715.16 OSTEOARTHROSIS, LOCALIZED, PRIMARY, INVOLVING LOWER LEG 01/27/2016 W 719.46 PAIN IN JOINT INVOLVING LOWER LEG 01/27/2016 A M17.11 UNILATERAL PRIMARY OSTEOARTHRITIS, RIGHT KNEE 01/27/2016 W M25.562 PAIN IN LEFT KNEE 02/16/2016 Ot 272.4 HYPERLIPIDEMIA NEC/NOS 02/16/2016 Ot 401.9 HYPERTENSION NOS 02/16/2016 Ot 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 OF [place] CORON 02/16/2016 Ot 272.4 HYPERLIPIDEMIA NEC/NOS 02/16/2016 Ot 401.9 HYPERTENSION NOS 02/16/2016 Ot 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 OF [place] CORON 02/16/2016 Ot 272.4 HYPERLIPIDEMIA NEC/NOS 02/16/2016 Ot 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 02/16/2016 Ot 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 [...] FOURNIER Ot I25.10 ATHSCL HEART DISEASE OF [place] CORONARY 02/16/2016 MAGALIS FOURNIER Ot I35.1 NONRHEUMATIC AORTIC (VALVE) INSUFFICIENC 02/16/2016 MAGALIS FOURNIER Ot I65.29 OCCLUSION AND STENOSIS OF UNSPECIFIED CA 02/16/2016 MAGALIS FOURNIER Ot R00.1 BRADYCARDIA, UNSPECIFIED 02/16/2016 JOSE RUSH MD Ot E78.2 MIXED HYPERLIPIDEMIA 02/16/2016 ADRI ROSALES, JOSE Vines Ot I10 ESSENTIAL (PRIMARY) HYPERTENSION 02/16/2016 JOSE RUSH MD Ot I25.10 ATHSCL HEART DISEASE OF [place] CORONARY 02/16/2016 ADRI ROSALES, JOSE Vines Ot I65.23 OCCLUSION AND STENOSIS OF BILATERAL [place] 02/16/2016 QUANG SANFORD MD Ot D69.6 THROMBOCYTOPENIA, UNSPECIFIED 02/16/2016 QUANG SANFORD MD Ot E78.0 PURE HYPERCHOLESTEROLEMIA 02/16/2016 QUANG SANFORD MD Ot E78.5 HYPERLIPIDEMIA, UNSPECIFIED 02/16/2016 QUANG SANFORD MD, Ot I25.10 ATHSCL HEART DISEASE OF [place] CORONARY 02/16/2016 QUANG SANFORD MD Ot K21.9 GASTRO-ESOPHAGEAL REFLUX DISEASE WITHOUT 02/16/2016 QUANG SANFORD MD Ot K44.9 DIAPHRAGMATIC HERNIA WITHOUT OBSTRUCTION 02/16/2016 QUANG SANFORD MD Ot D69.6 THROMBOCYTOPENIA, UNSPECIFIED 02/16/2016 QUANG SANFORD MD Ot E78.0 PURE HYPERCHOLESTEROLEMIA 02/16/2016 QUANG SANFORD MD Ot E78.5 HYPERLIPIDEMIA, UNSPECIFIED 02/16/2016 QUANG SANFORD MD Ot I25.10 ATHSCL HEART DISEASE OF [place] CORONARY 02/16/2016 QUANG SANFORD MD Ot K21.9 GASTRO-ESOPHAGEAL REFLUX DISEASE WITHOUT 02/16/2016 QUANG SANFORD MD Ot K44.9 DIAPHRAGMATIC HERNIA WITHOUT OBSTRUCTION 02/19/2016 QUANG SANFORD MD Ot D69.6 THROMBOCYTOPENIA, UNSPECIFIED 02/19/2016 QUANG SANFORD MD Ot E78.0 PURE HYPERCHOLESTEROLEMIA 02/19/2016 QUANG SANFORD MD Ot E78.5 HYPERLIPIDEMIA, UNSPECIFIED 02/19/2016 QUANG SANFORD MD Ot I25.10 ATHSCL HEART DISEASE OF [place] CORONARY 02/19/2016 QUANG SANFORD MD, Ot K21.9 GASTRO-ESOPHAGEAL REFLUX DISEASE WITHOUT 02/19/2016 QUANG SANFORD MD, Ot K44.9 DIAPHRAGMATIC HERNIA WITHOUT OBSTRUCTION 02/26/2016 GIRISH CHAN MD Ot K80.20 CALCULUS OF [...] MD Ot I25.10 ATHSCL HEART DISEASE OF [place] CORONARY 04/19/2016 QUANG SANFORD MD Ot K21.9 GASTRO-ESOPHAGEAL REFLUX DISEASE WITHOUT 04/19/2016 QUANG SANFORD MD Ot K44.9 DIAPHRAGMATIC HERNIA WITHOUT OBSTRUCTION 04/20/2016 QUANG SANFORD MD, Ot 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, UNSPECIFIED 04/20/2016 JUVENAL MD, QUANG K Ot D69.6 THROMBOCYTOPENIA, UNSPECIFIED 04/20/2016 QUANG SANFORD MD Ot E78.0 PURE HYPERCHOLESTEROLEMIA 04/20/2016 QUANG SANFORD MD Ot E78.5 HYPERLIPIDEMIA, UNSPECIFIED 04/20/2016 QUANG SANFORD MD Ot I25.10 ATHSCL HEART DISEASE OF [place] CORONARY 04/20/2016 QUANG SANFORD MD Ot K21.9 GASTRO-ESOPHAGEAL REFLUX DISEASE WITHOUT 04/20/2016 QUANG SANFORD MD Ot K44.9 DIAPHRAGMATIC HERNIA WITHOUT OBSTRUCTION 06/17/2016 QUANG SANFORD MD Ot 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, UNSPECIFIED 06/17/2016 QUANG SANFORD MD Ot D69.6 THROMBOCYTOPENIA, UNSPECIFIED 06/17/2016 QUANG SANFORD MD Ot E78.0 PURE HYPERCHOLESTEROLEMIA * DO NOT USE * 06/17/2016 QUANG SANFORD MD Ot E78.5 HYPERLIPIDEMIA, UNSPECIFIED 06/17/2016 QUANG SANFORD MD Ot I25.10 ATHSCL HEART DISEASE OF [place] CORONARY 06/17/2016 QUANG SANFORD MD Ot K21.9 GASTRO-ESOPHAGEAL REFLUX DISEASE WITHOUT 06/17/2016 [...] MD Ot I25.10 ATHSCL HEART DISEASE OF [place] CORONARY 06/20/2016 QUANG SANFORD MD Ot K21.9 [...] MD Ot I25.10 ATHSCL HEART DISEASE OF [place] CORONARY 07/20/2016 JUVENAL ROSALES, QUANG Arreola Ot K21.9 GASTRO-ESOPHAGEAL REFLUX DISEASE WITHOUT 07/20/2016 [...] SUBSEQUENT 07/23/2016 NIKOLE PIERRE APRN Ot Y92.[address] [facility] [address] IN [facility] NON-INSTITUT (PRIVATE 07/23/2016 NIKOLE PIERRE APRN Ot Y93.9 ACTIVITY, UNSPECIFIED 07/23/2016 NIKOLE PIERRE APRN Ot Y99.8 OTHER EXTERNAL CAUSE STATUS 07/23/2016 NIKOLE PIERRE APRN Ot Z79.02 FPC (CURRENT) USE OF ANTITHROMBOTI 07/23/2016 NIKOLE PIERRE APRN Ot Z79.82 FPC (CURRENT) USE OF ASPIRIN 07/23/2016 NIKOLE PIERRE APRN Ot Z95.5 PRESENCE OF CORONARY ANGIOPLASTY IMPLANT 07/25/2016 NIKOLE PIERRE APRN Ot I10 ESSENTIAL (PRIMARY) HYPERTENSION 07/25/2016 NIKOLE PIERRE APRN Ot J32.0 CHRONIC MAXILLARY SINUSITIS 07/25/2016 NIKOLE PIERRE APRN Ot S01.112A LACERATION W/O FB OF LEFT EYELID AND PER 07/25/2016 NIKOLE PIERRE APRN Ot S01.412A LACERATION W/O FOREIGN BODY OF LEFT VALENTIN 07/25/2016 NIKOLE PIERRE APRN Ot S60.212A CONTUSION OF LEFT WRIST, INITIAL ENCOUNT 07/25/2016 PIERRE, PETER J STOCK LIFTER Ot W18.09XA STRIKING AGAINST OTH OBJECT W SUBSEQUENT 07/25/2016 NIKOLE PIERRE STOCK LIFTER Ot Y92.[address] IN [facility] NON-[facility]IT[facility] (PRIVATE 07/25/2016 NIKOLE PIERRE STOCK LIFTER Ot Y93.9 ACTIVITY, UNSPECIFIED 07/25/2016 NIKOLE PIERRE STOCK LIFTER Ot Y99.8 OTHER EXTERNAL CAUSE STATUS 07/25/2016 NIKOLE PIERRE APRN Ot Z79.02 FPC (CURRENT) USE OF ANTITHROMBOTI 07/25/2016 NIKOLE PIERRE STOCK LIFTER Ot Z79.82 FPC (CURRENT) USE OF ASPIRIN 07/25/2016 NIKOLE PIERRE STOCK LIFTER Ot Z95.5 PRESENCE OF CORONARY ANGIOPLASTY IMPLANT 07/30/2016 LEX ROSALES, NISHI Whittington Ot S01.112A LACERATION W/O FB OF LEFT EYELID AND PER 07/30/2016 NISHI BURNETT MD Ot S01.112D LACERATION W/O FB OF LEFT EYELID AND PER 07/30/2016 Ot 272.4 HYPERLIPIDEMIA NEC/NOS 07/30/2016 Ot 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 07/30/2016 Ot 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 DISEASE 07/30/2016 Ot 414.00 CORON ATHEROSCLER NOS TYPE VESSEL, NATIV 07/30/2016 Ot 786.50 CHEST PAIN NOS 07/30/2016 Ot 401.9 HYPERTENSION NOS 07/30/2016 Ot 414.00 CORON ATHEROSCLER NOS TYPE VESSEL, NATIV 07/30/2016 Ot 272.4 HYPERLIPIDEMIA NEC/NOS 07/30/2016 JOSE RUSH MD Ot 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 07/30/2016 JOSE [...] FOURNIER Ot I25.10 ATHSCL HEART DISEASE OF [place] CORONARY 07/30/2016 MAGALIS FOURNIER Ot I35.1 NONRHEUMATIC AORTIC (VALVE) INSUFFICIENC 07/30/2016 MAGALIS FOURNIER Ot I65.29 OCCLUSION AND STENOSIS OF UNSPECIFIED CA 07/30/2016 MAGALIS FOURNIER Ot R00.1 BRADYCARDIA, UNSPECIFIED 07/30/2016 JOSE RUSH MD Ot E78.2 MIXED HYPERLIPIDEMIA 07/30/2016 JOSE RUSH MD Ot I10 ESSENTIAL (PRIMARY) HYPERTENSION 07/30/2016 JOSE RUSH MD Ot I25.10 ATHSCL HEART DISEASE OF [place] CORONARY 07/30/2016 JOSE RUSH MD Ot I65.23 OCCLUSION AND STENOSIS OF BILATERAL [place] 07/30/2016 QUANG SANFORD MD Ot 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, UNSPECIFIED 07/30/2016 QUANG SANFORD MD Ot D69.6 THROMBOCYTOPENIA, UNSPECIFIED 07/30/2016 QUANG SANFORD MD Ot E78.00 PURE HYPERCHOLESTEROLEMIA, UNSPECIFIED 07/30/2016 QUANG SANFORD MD Ot E78.5 HYPERLIPIDEMIA, UNSPECIFIED 07/30/2016 QUANG SANFORD MD Ot I25.10 ATHSCL HEART DISEASE OF [place] CORONARY 07/30/2016 QUANG SANFORD MD Ot K21.9 GASTRO-ESOPHAGEAL REFLUX DISEASE WITHOUT 07/30/2016 QUANG SANFORD MD Ot K44.9 DIAPHRAGMATIC HERNIA WITHOUT OBSTRUCTION 08/01/2016 LEX ROSALES, NISHI Whittington Ot S01.112A LACERATION W/O FB OF LEFT EYELID AND PER 08/01/2016 NISHI BURNETT MD Ot S01.112D LACERATION W/O FB OF LEFT EYELID AND PER 08/05/2016 QUANG SANFORD MD Ot 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, UNSPECIFIED 08/05/2016 QUANG SANFORD MD Ot D69.6 THROMBOCYTOPENIA, UNSPECIFIED 08/05/2016 QUANG SANFORD MD Ot E78.00 PURE HYPERCHOLESTEROLEMIA, UNSPECIFIED 08/05/2016 QUANG SANFORD MD Ot E78.5 HYPERLIPIDEMIA, UNSPECIFIED 08/05/2016 QUANG SANFORD MD Ot I25.10 ATHSCL HEART DISEASE OF [place] CORONARY 08/05/2016 QUANG SANFORD MD Ot K21.9 GASTRO-ESOPHAGEAL REFLUX DISEASE WITHOUT 08/05/2016 QUANG SANFORD MD Ot K44.9 DIAPHRAGMATIC HERNIA WITHOUT OBSTRUCTION 09/14/2016 QUANG SANFORD MD Ot 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, UNSPECIFIED 09/14/2016 QUANG SANFORD MD Ot D69.6 THROMBOCYTOPENIA, UNSPECIFIED 09/14/2016 QUANG SANFORD MD Ot E78.00 PURE HYPERCHOLESTEROLEMIA, UNSPECIFIED 09/14/2016 QUANG SANFORD MD Ot E78.5 HYPERLIPIDEMIA, UNSPECIFIED 09/14/2016 QUANG SANFORD MD Ot I25.10 ATHSCL HEART DISEASE OF [place] CORONARY 09/14/2016 QUANG SANFORD MD Ot K21.9 GASTRO-ESOPHAGEAL REFLUX DISEASE WITHOUT 09/14/2016 QUANG SANFORD MD Ot K44.9 DIAPHRAGMATIC HERNIA WITHOUT OBSTRUCTION 11/30/2016 NIKOLE PIERRE APRN Ot I10 ESSENTIAL (PRIMARY) HYPERTENSION 11/30/2016 NIKOLE PIERRE APRN Ot J02.9 ACUTE PHARYNGITIS, UNSPECIFIED 11/30/2016 NIKOLE PIERRE APRN Ot J10.1 FLU DUE TO OTH IDENT INFLUENZA VIRUS W O 11/30/2016 NIKOLE PIERRE STOCK LIFTER Ot R50.9 FEVER, UNSPECIFIED 11/30/2016 NIKOLE PIERRE APRN Ot Z79.02 WIRELINE OPERATOR (CURRENT) USE OF ANTITHROMBOTI 11/30/2016 NIKOLE PIERRE APRN Ot Z79.82 WIRELINE OPERATOR (CURRENT) USE OF ASPIRIN 11/30/2016 NIKOLE PIERRE APRN Ot Z79.899 OTHER FPC (CURRENT) DRUG THERAPY 11/30/2016 NIKOLE PIERRE APRN Ot Z87.891 PERSONAL HISTORY OF NICOTINE DEPENDENCE 12/01/2016 NIKOLE PIERRE APRN Ot I10 ESSENTIAL (PRIMARY) HYPERTENSION 12/01/2016 NIKOLE PIERRE APRN Ot J02.9 ACUTE PHARYNGITIS, UNSPECIFIED 12/01/2016 NIKOLE PIERRE APRN Ot J10.1 FLU DUE TO OTH IDENT INFLUENZA VIRUS W O 12/01/2016 NIKOLE PIERRE APRN Ot R50.9 FEVER, UNSPECIFIED 12/01/2016 NIKOLE PIERRE APRN Ot Z79.02 FPC (CURRENT) USE OF ANTITHROMBOTI 12/01/2016 NIKOLE PIERRE APRN Ot Z79.82 FPC (CURRENT) USE OF ASPIRIN 12/01/2016 NIKOLE PIERRE APRN Ot Z79.899 OTHER WIRELINE OPERATOR (CURRENT) DRUG THERAPY 12/01/2016 NIKOLE PIERRE APRN Ot Z87.891 PERSONAL HISTORY OF NICOTINE DEPENDENCE 12/07/2016 JOSE RUSH MD Ot E78.2 MIXED HYPERLIPIDEMIA 12/07/2016 JOSE RUSH MD Ot I10 ESSENTIAL (PRIMARY) HYPERTENSION 12/07/2016 JOSE RUSH MD Ot I25.10 ATHSCL HEART DISEASE OF [place] CORONARY 12/07/2016 JOSE RUSH MD Ot I35.1 NONRHEUMATIC AORTIC (VALVE) INSUFFICIENC 12/07/2016 JOSE RUSH MD Ot I65.23 OCCLUSION AND STENOSIS OF BILATERAL [place] 12/07/2016 JOSE RUSH MD Ot R07.9 CHEST PAIN, UNSPECIFIED 12/07/2016 JOSE RUSH MD Ot E78.2 MIXED HYPERLIPIDEMIA 12/07/2016 JOSE RUSH MD Ot I10 ESSENTIAL (PRIMARY) HYPERTENSION 12/07/2016 JOSE RUSH MD Ot I25.10 ATHSCL HEART DISEASE OF [place] CORONARY 12/07/2016 JOSE RUSH MD Ot I35.1 NONRHEUMATIC AORTIC (VALVE) INSUFFICIENC 12/07/2016 JOSE RUSH MD Ot I65.23 OCCLUSION AND STENOSIS OF BILATERAL [place] 12/07/2016 JOSE RUSH MD Ot R07.9 CHEST PAIN, UNSPECIFIED 12/09/2016 JOSE RUSH MD Ot E78.2 MIXED HYPERLIPIDEMIA 12/09/2016 JOSE RUSH MD Ot I10 ESSENTIAL (PRIMARY) HYPERTENSION 12/09/2016 JOSE RUSH MD Ot I25.10 ATHSCL HEART DISEASE OF [place] CORONARY 12/09/2016 JOSE RUSH MD Ot I35.1 NONRHEUMATIC AORTIC (VALVE) INSUFFICIENC 12/09/2016 JOSE RUSH MD Ot I65.23 OCCLUSION AND STENOSIS OF BILATERAL [place] 12/09/2016 JOSE RUSH MD Ot R07.9 CHEST PAIN, UNSPECIFIED 12/27/2016 JOSE RUSH MD Ot E78.2 MIXED HYPERLIPIDEMIA 12/27/2016 JOSE RUSH MD Ot I10 ESSENTIAL (PRIMARY) HYPERTENSION 12/27/2016 JOSE RUSH MD Ot I25.10 ATHSCL HEART DISEASE OF [place] CORONARY 12/27/2016 JOSE RUSH MD Ot I35.1 NONRHEUMATIC AORTIC (VALVE) INSUFFICIENC 12/27/2016 JOSE RUSH MD Ot I65.23 OCCLUSION AND STENOSIS OF BILATERAL [place] 12/27/2016 JOSE RUSH MD Ot R07.9 CHEST PAIN, UNSPECIFIED 01/05/2017 QUANG SANFORD MD Ot 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, UNSPECIFIED 01/05/2017 QUANG SANFORD MD Ot D69.6 THROMBOCYTOPENIA, UNSPECIFIED 01/05/2017 QUANG SANFORD MD Ot E78.00 PURE HYPERCHOLESTEROLEMIA, UNSPECIFIED 01/05/2017 QUANG SANFORD MD Ot E78.5 HYPERLIPIDEMIA, UNSPECIFIED 01/05/2017 QUANG SANFORD MD Ot I25.10 ATHSCL HEART DISEASE OF [place] CORONARY 01/05/2017 QUANG SANFORD MD Ot K21.9 GASTRO-ESOPHAGEAL REFLUX DISEASE WITHOUT 01/05/2017 QUANG SANOFRD MD Ot K44.9 DIAPHRAGMATIC HERNIA WITHOUT OBSTRUCTION 01/16/2017 JOSE RUSH MD Ot E78.2 MIXED HYPERLIPIDEMIA 01/16/2017 JOSE RUSH MD Ot I10 ESSENTIAL (PRIMARY) HYPERTENSION 01/16/2017 JOSE RUSH MD Ot I25.10 ATHSCL HEART DISEASE OF [place] CORONARY 01/16/2017 JOSE RUSH MD Ot I35.1 NONRHEUMATIC AORTIC (VALVE) INSUFFICIENC 01/16/2017 JOSE RUSH MD Ot I65.23 OCCLUSION AND STENOSIS OF BILATERAL [place] 01/16/2017 JOSE RUSH MD Ot R07.9 CHEST PAIN, UNSPECIFIED 02/16/2017 QUANG SANFORD MD Ot 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, UNSPECIFIED 02/16/2017 QUANG SANFORD MD Ot D69.6 THROMBOCYTOPENIA, UNSPECIFIED 02/16/2017 QUANG SANFORD MD Ot E78.00 PURE HYPERCHOLESTEROLEMIA, UNSPECIFIED 02/16/2017 QUANG SANFORD MD Ot E78.5 HYPERLIPIDEMIA, UNSPECIFIED 02/16/2017 QUANG SANFORD MD Ot I25.10 ATHSCL HEART DISEASE OF [place] CORONARY 02/16/2017 QUANG SANFORD MD Ot K21.9 GASTRO-ESOPHAGEAL REFLUX DISEASE WITHOUT 02/16/2017 QUANG SANFORD MD Ot K44.9 DIAPHRAGMATIC HERNIA WITHOUT OBSTRUCTION 03/13/2017 QUANG SANFORD MD Ot 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, UNSPECIFIED 03/13/2017 QUANG SANFORD MD Ot D69.6 THROMBOCYTOPENIA, UNSPECIFIED 03/13/2017 QUANG SANFORD MD Ot E78.00 PURE HYPERCHOLESTEROLEMIA, UNSPECIFIED 03/13/2017 QUANG SANFORD MD Ot E78.5 HYPERLIPIDEMIA, UNSPECIFIED 03/13/2017 QUANG SANFORD MD Ot I25.10 ATHSCL HEART DISEASE OF [place] CORONARY 03/13/2017 QUANG SANFORD MD Ot K21.9 GASTRO-ESOPHAGEAL REFLUX DISEASE WITHOUT 03/13/2017 QUANG SANFORD MD Ot K44.9 DIAPHRAGMATIC HERNIA WITHOUT OBSTRUCTION 03/31/2017 PIERRE, PETER J STOCK LIFTER Ot E78.00 PURE HYPERCHOLESTEROLEMIA, UNSPECIFIED 03/31/2017 NIKOLE PIERRE STOCK LIFTER Ot I10 ESSENTIAL (PRIMARY) HYPERTENSION 03/31/2017 NIKOLE PIERRE STOCK LIFTER Ot M19.90 UNSPECIFIED OSTEOARTHRITIS, UNSPECIFIED 03/31/2017 NIKOLE PIERRE STOCK LIFTER Ot S61.011A LACERATION W/O FB OF RIGHT THUMB W/O DAM 03/31/2017 NIKOLE PIERRE APRN Ot S61.210A LACERATION W/O FB OF R IDX FNGR W/O LAY 03/31/2017 NIKOLE PIERRE APRN Ot W29.8XXA CNTCT W OTH POWER POWER HAND TOOLS AND H 03/31/2017 NIKOLE PIERRE APRN Ot 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9 DIAPHRAGMATIC HERNIA WITHOUT OBSTRUCTION 06/14/2017 Ot 401.9 HYPERTENSION NOS 06/14/2017 Ot 414.00 CORON ATHEROSCLER NOS TYPE VESSEL, NATIV 06/14/2017 Ot 272.4 HYPERLIPIDEMIA NEC/NOS 06/14/2017 JOSE RUSH MD Ot 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 06/14/2017 JOSE RUSH MD Ot 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 DISEASE 06/14/2017 JOSE RUSH MD Ot 401.9 HYPERTENSION NOS 06/14/2017 JOSE RUSH MD Ot 414.00 CORON ATHEROSCLER NOS TYPE VESSEL, NATIV 06/14/2017 JOSE RUSH MD Ot 424.1 AORTIC VALVE DISORDER 06/14/2017 JOSE RUSH MD Ot 433.10 CAROTID ARTERY OCCLUSION W O CEREBRAL IN 06/14/2017 JOSE RUSH MD Ot 272.4 HYPERLIPIDEMIA NEC/NOS 06/14/2017 JOSE RUSH MD Ot 401.9 HYPERTENSION NOS 06/14/2017 JOSE RUSH MD Ot 414.00 CORON ATHEROSCLER NOS TYPE VESSEL, NATIV 06/14/2017 JOSE RUSH MD Ot 424.1 AORTIC VALVE DISORDER 06/14/2017 JOSE RUSH MD Ot 433.10 CAROTID ARTERY OCCLUSION W O CEREBRAL IN 06/14/2017 JOSE RUSH MD Ot 272.4 HYPERLIPIDEMIA NEC/NOS 06/14/2017 JOSE RUSH MD Ot 401.9 HYPERTENSION NOS 06/14/2017 JOSE RUSH MD Ot 414.00 CORON ATHEROSCLER NOS TYPE VESSEL, NATIV 06/14/2017 JOSE RUSH MD Ot 424.0 MITRAL VALVE DISORDER 06/14/2017 JOSE RUSH MD Ot 433.10 CAROTID ARTERY OCCLUSION W O CEREBRAL IN 06/14/2017 MAGALIS FOURNIER Ot 401.9 HYPERTENSION NOS 06/14/2017 MAGALIS FOURNIER Ot 414.9 CHR ISCHEMIC HRT DIS NOS 06/14/2017 MAGALIS FOURNIER Ot 424.1 AORTIC VALVE DISORDER 06/14/2017 MAGALIS FOURNIER Ot 427.89 CARDIAC DYSRHYTHMIAS NEC 06/14/2017 MAGALIS FOURNIER Ot 433.10 CAROTID ARTERY OCCLUSION W O CEREBRAL IN 06/14/2017 MAGALIS FOURNIER Ot I10 ESSENTIAL (PRIMARY) HYPERTENSION 06/14/2017 MAGALIS FOURNIER Ot I25.10 ATHSCL HEART DISEASE OF [place] CORONARY 06/14/2017 MAGALIS FOURNIER Ot I35.1 NONRHEUMATIC AORTIC (VALVE) INSUFFICIENC 06/14/2017 MAGALIS FOURNIER Ot I65.29 OCCLUSION AND STENOSIS OF UNSPECIFIED CA 06/14/2017 MAGALIS FOURNIER Ot R00.1 BRADYCARDIA, UNSPECIFIED 06/14/2017 JOSE RUSH MD Ot E78.2 MIXED HYPERLIPIDEMIA 06/14/2017 JOSE RUSH MD Ot I10 ESSENTIAL (PRIMARY) HYPERTENSION 06/14/2017 JOSE RUSH MD Ot I25.10 ATHSCL HEART DISEASE OF [place] CORONARY 06/14/2017 JOSE RUSH MD Ot I65.23 OCCLUSION AND STENOSIS OF BILATERAL [place] 06/14/2017 JOSE RUSH MD Ot E78.2 MIXED HYPERLIPIDEMIA 06/14/2017 JOSE RUSH MD Ot I10 ESSENTIAL (PRIMARY) HYPERTENSION 06/14/2017 JOSE RUSH MD Ot I25.10 ATHSCL HEART DISEASE OF [place] CORONARY 06/14/2017 JOSE RUSH MD Ot I35.1 NONRHEUMATIC AORTIC (VALVE) INSUFFICIENC 06/14/2017 JOSE RUSH MD Ot I65.23 OCCLUSION AND STENOSIS OF BILATERAL [place] 06/14/2017 JOSE RUSH MD Ot R07.9 CHEST PAIN, UNSPECIFIED 06/14/2017 SAMUEL TERAN MD Ot 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, UNSPECIFIED 06/14/2017 SAMUEL TERAN MD Ot D69.6 THROMBOCYTOPENIA, UNSPECIFIED 06/14/2017 SAMUEL TERAN MD Ot E78.00 PURE HYPERCHOLESTEROLEMIA, UNSPECIFIED 06/14/2017 SAMUEL TERAN MD Ot E78.5 HYPERLIPIDEMIA, UNSPECIFIED 06/14/2017 SAMUEL TERAN MD Ot I25.10 ATHSCL HEART DISEASE OF [place] CORONARY 06/14/2017 SAMUEL TERAN MD Ot K21.9 GASTRO-ESOPHAGEAL REFLUX DISEASE WITHOUT 06/14/2017 SAMUEL TERAN MD Ot K44.9 DIAPHRAGMATIC HERNIA WITHOUT OBSTRUCTION 06/15/2017 MAGALIS FOURNIER Ot I10 ESSENTIAL (PRIMARY) HYPERTENSION 06/15/2017 MAGALIS FOURNIER Ot I25.10 ATHSCL HEART DISEASE OF [place] CORONARY 06/15/2017 MAGALIS FOURNIER Ot I35.1 NONRHEUMATIC AORTIC (VALVE) INSUFFICIENC 06/15/2017 MAGALIS FOURNIER Ot I65.23 OCCLUSION AND STENOSIS OF BILATERAL [place] 07/06/2017 MAAGLIS FOURNIER Ot I10 ESSENTIAL (PRIMARY) HYPERTENSION 07/06/2017 MAGALIS FOURNIER Ot I25.10 ATHSCL HEART DISEASE OF [place] CORONARY 07/06/2017 MAGALIS FOURNIER Ot I35.1 NONRHEUMATIC AORTIC (VALVE) INSUFFICIENC 07/06/2017 MAGALIS FOURNIER Ot I65.23 OCCLUSION AND STENOSIS OF BILATERAL [place] 07/25/2017 JUNE QUINTONMAGALIS Ot I10 ESSENTIAL (PRIMARY) HYPERTENSION 07/25/2017 MAGALIS FOURNIER Ot I25.10 ATHSCL HEART DISEASE OF [place] CORONARY 07/25/2017 JUNE QUINTONMAGALIS Ot I35.1 NONRHEUMATIC AORTIC (VALVE) INSUFFICIENC 07/25/2017 MAGALIS FOURNIER Ot I65.23 OCCLUSION AND STENOSIS OF [place]ILATERAL [place] 02/15/2018 SAMUEL TERAN MD Ot 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, UNSPECIFIED 02/15/2018 SAMUEL TERAN MD Ot D69.6 THROMBOCYTOPENIA, UNSPECIFIED 02/15/2018 SAMUEL TERAN MD Ot E78.00 PURE HYPERCHOLESTEROLEMIA, UNSPECIFIED 02/15/2018 SAMUEL TERAN MD Ot E78.5 HYPERLIPIDEMIA, UNSPECIFIED 02/15/2018 ESTEFANIA TERAN MDNER Ot I25.10 ATHSCL HEART DISEASE OF [place] CORONARY 02/15/2018 SAMUEL TERAN MD Ot K21.9 GASTRO-ESOPHAGEAL REFLUX DISEASE WITHOUT 02/15/2018 SAMUEL TERAN MD Ot K44.9 DIAPHRAGMATIC HERNIA WITHOUT OBSTRUCTION 02/27/2018 SAMUEL TERAN MD Ot 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, UNSPECIFIED 02/27/2018 SAMUEL TERAN MD Ot D69.6 THROMBOCYTOPENIA, UNSPECIFIED 02/27/2018 SAMUEL TERAN MD Ot E78.00 PURE HYPERCHOLESTEROLEMIA, UNSPECIFIED 02/27/2018 ESTEFANIA TERAN MDNER Ot E78.5 HYPERLIPIDEMIA, UNSPECIFIED 02/27/2018 ESTEFANIA TERAN MDNER Ot I25.10 ATHSCL HEART DISEASE OF [place] CORONARY 02/27/2018 SAMUEL TERAN MD Ot K21.9 GASTRO-ESOPHAGEAL REFLUX DISEASE WITHOUT 02/27/2018 SAMUEL TERAN MD Ot K44.9 DIAPHRAGMATIC HERNIA WITHOUT OBSTRUCTION 03/01/2018 SAMUEL TERAN MD Ot 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, UNSPECIFIED 03/01/2018 SAMUEL TERAN MD Ot D69.6 THROMBOCYTOPENIA, UNSPECIFIED 03/01/2018 SAMUEL TERAN MD Ot E78.00 PURE HYPERCHOLESTEROLEMIA, UNSPECIFIED 03/01/2018 SAMUEL TERAN MD Ot E78.5 HYPERLIPIDEMIA, UNSPECIFIED 03/01/2018 SAMUEL TERAN MD Ot I25.10 ATHSCL HEART DISEASE OF [place] CORONARY 03/01/2018 SAMUEL TERAN MD Ot K21.9 GASTRO-ESOPHAGEAL REFLUX DISEASE WITHOUT 03/01/2018 SAMUEL TERAN MD Ot K44.9 DIAPHRAGMATIC HERNIA WITHOUT OBSTRUCTION 03/27/2018 SAMUEL TERAN MD Ot 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, UNSPECIFIED 03/27/2018 SAMUEL TERAN MD Ot D69.6 THROMBOCYTOPENIA, UNSPECIFIED 03/27/2018 SAMUEL TERAN MD Ot E78.00 PURE HYPERCHOLESTEROLEMIA, UNSPECIFIED 03/27/2018 SAMUEL TERAN MD Ot E78.5 HYPERLIPIDEMIA, UNSPECIFIED 03/27/2018 SAMUEL TERAN MD Ot I25.10 ATHSCL HEART DISEASE OF [place] CORONARY 03/27/2018 SAMUEL TERAN MD, Ot K21.9 GASTRO-ESOPHAGEAL REFLUX DISEASE WITHOUT 03/27/2018 SAMUEL TERAN MD, Ot K44.9 DIAPHRAGMATIC HERNIA WITHOUT OBSTRUCTION Procedures There is no data. Results Test Result Range Influenza virus A and B antigen detection - 11/30/16 14:35 FLU RESULT NEGATIVE FOR INFLUENZA A AND B ANTIGENS BY [facility] Lipid Panel - 12/02/16 08:35 C/HDL 2.6 3.7-6.7 Cholesterol 136 mg/dL 100-240 HDL 52 mg/dL 30-85 LDL-Calculated 70 mg/dL 0-100 Trig 68 mg/dL 35-160 VLDL 14 mg/dL 0-42 Complete blood count (CBC) with automated white blood cell (WBC) differential - 08/11/18 04:47 Blood leukocytes automated count (number/volume) 10.5 10*3/uL 4.3-11.0 Blood erythrocytes automated count (number/volume) 4.70 10*6/uL 4.35-5.85 Venous blood hemoglobin measurement (mass/volume) 14.6 g/dL 13.3-17.7 Blood hematocrit (volume fraction) 42 % 40-54 Automated erythrocyte mean corpuscular volume 89 [foz_us] 80-99 Automated erythrocyte mean corpuscular hemoglobin (mass per erythrocyte) 31 pg 25-34 Automated erythrocyte mean corpuscular hemoglobin concentration measurement ( mass/volume) 35 g/dL 32-36 Automated erythrocyte distribution width ratio 15.4 % 10.0-14.5 Automated blood platelet count (count/volume) 190 10*3/uL 130-400 Automated blood platelet mean volume measurement 11.0 [foz_us] 7.4-10.4 Automated blood neutrophils/100 leukocytes 75 % 42-75 Automated blood lymphocytes/100 leukocytes 14 % 12-44 Blood monocytes/100 leukocytes 11 % 0-12 Automated blood eosinophils/100 leukocytes 1 % 0-10 Automated blood basophils/100 leukocytes 0 % 0-10 Blood neutrophils automated count (number/volume) 7.9 10*3 1.8-7.8 Blood lymphocytes automated count (number/volume) 1.5 10*3 1.0-4.0 Blood monocytes automated count (number/volume) 1.1 10*3 0.0-1.0 Automated eosinophil count 0.1 10*3/uL 0.0-0.3 Automated blood basophil count (count/volume) 0.0 10*3/uL 0.0-0.1 PT panel in platelet poor plasma by coagulation assay - 08/11/18 04:47 Prothrombin time (PT) in platelet poor plasma by coagulation assay 13.5 s 12.2-14.7 INR in platelet poor plasma or blood by coagulation assay 1.0 0.8-1.4 Activated partial thromboplastin time (aPTT) in platelet poor plasma bycoagulation assay - 08/11/18 04:47 Activated partial thromboplastin time (aPTT) in platelet poor plasma bycoagulation assay 31 s 24-35 Blood lactic acid measurement (moles/volume) - 08/11/18 04:47 Blood lactic acid measurement (moles/volume) 2.15 mmol/L 0.50-2.00 Comprehensive metabolic panel - 08/11/18 04:47 Serum or plasma sodium measurement (moles/volume) 140 mmol/L 135-145 Serum or plasma potassium measurement (moles/volume) 3.9 mmol/L 3.6-5.0 Serum or plasma chloride measurement (moles/volume) 105 mmol/L 98-107 Carbon dioxide 21 mmol/L 21-32 Serum or plasma anion gap determination (moles/volume) 14 mmol/L 5-14 Serum or plasma urea nitrogen measurement (mass/volume) 18 mg/dL 7-18 Serum or plasma creatinine measurement (mass/volume) 1.11 mg/dL 0.60-1.30 Serum or plasma urea nitrogen/creatinine mass ratio 16 NRG Serum or plasma creatinine measurement with calculation of estimated glomerular filtration rate > NRG Serum or plasma glucose measurement (mass/volume) 137 mg/dL 70-105 Serum or plasma calcium measurement (mass/volume) 10.4 mg/dL 8.5-10.1 Serum or plasma total bilirubin measurement (mass/volume) 1.0 mg/dL 0.1-1.0 Serum or plasma alkaline phosphatase measurement (enzymatic activity/volume) 109 U/L 40-136 Serum or plasma aspartate aminotransferase measurement (enzymatic activity/ volume) 20 U/L 5-34 Serum or plasma alanine aminotransferase measurement (enzymatic activity/volume ) 19 U/L 0-55 Serum or plasma protein measurement (mass/volume) 7.4 g/dL 6.4-8.2 Serum or plasma albumin measurement (mass/volume) 4.5 g/dL 3.2-4.5 CALCIUM CORRECTED 10.0 mg/dL 8.5-10.1 Serum or plasma troponin i.cardiac measurement (mass/volume) - 08/11/18 04:47 Serum or plasma troponin i.cardiac measurement (mass/volume) < ng/ mL <0.30 Complete urinalysis with reflex to culture - 08/11/18 05:32 Urine color determination YELLOW NRG Urine clarity determination CLEAR NRG Urine pH measurement by test strip 5 5-9 Specific gravity of urine by test strip 1.025 1.016- 1.022 Urine protein assay by test strip, semi-quantitative 2+ NEGATIVE Urine glucose detection by automated test strip NEGATIVE NEGATIVE Erythrocytes detection in urine sediment by light microscopy NEGATIVE NEGATIVE Urine ketones detection by automated test strip 1+ NEGATIVE Urine nitrite detection by test strip NEGATIVE NEGATIVE Urine total bilirubin detection by test strip NEGATIVE NEGATIVE Urine urobilinogen measurement by automated test strip (mass/volume) NORMAL NORMAL Urine leukocyte esterase detection by dipstick NEGATIVE NEGATIVE Automated urine sediment erythrocyte count by microscopy (number/high power field) NONE NRG Automated urine sediment leukocyte count by microscopy (number/high power field ) NONE NRG Bacteria detection in urine sediment by light microscopy NEGATIVE NRG Squamous epithelial cells detection in urine sediment by light microscopy 5-10 NRG Crystals detection in urine sediment by light microscopy NONE NRG Casts detection in urine sediment by light microscopy NONE NRG Mucus detection in urine sediment by light microscopy LARGE NRG Complete urinalysis with reflex to culture NO NRG Encounters ACCT No. Visit Date/Time Discharge Status Pt. Type Provider Facility Loc./Unit Complaint [id number] 05/28/2018 00:10:00 05/28/2018 23:59:59 CLS Preadmit SAMUEL TERAN MD [facility] ONC [id number] 02/27/2018 08:18:00 03/27/2018 00:01:00 DIS Outpatient SAMUEL TERAN MD [facility] ONC [id number] 01/03/2018 09:12:00 02/27/2018 08:15:00 DIS Outpatient SAMUEL TERAN MD [facility] ONC [id number] 06/14/2017 07:12:00 06/14/2017 23:59:59 CLS Outpatient MAGALIS FOURNIER [facility] CARD AR I35.1 [id number] 02/22/2017 08:54:00 04/04/2017 00:01:00 DIS Outpatient QUANG SANFORD MD [facility] ONC [id number] 03/31/2017 10:32:00 03/31/2017 10:59:00 DIS Emergency NIKOLE PIERRE STOCK LIFTER [facility] ER RT THUMB/FINGER CUT WITH SAW [id number] 12/06/2016 10:09:00 12/06/2016 23:59:59 CLS Outpatient JOSE RUSH MD [facility] CARD AR,CAD,CHEST PAIN,HTN, HLP [id number] 11/30/2016 14:31:00 11/30/2016 15:36:00 DIS Emergency NIKOLE PIERRE STOCK LIFTER [facility] ER FLU SYMPTOMS [id number] 06/16/2016 10:07:00 09/14/2016 00:01:00 DIS Outpatient QUANG SANFORD MD [facility] ONC [id number] 07/30/2016 07:18:00 07/30/2016 07:34:00 DIS Emergency NISHI BURNETT MD [facility] ER SUTURE REMOVAL [id number] 07/23/2016 14:58:00 07/23/2016 16:03:00 DIS Emergency NIKOLE PIERRE APRN [facility] ER FACIAL LAC [id number] 02/19/2016 10:30:00 04/19/2016 00:01:00 DIS Outpatient QUANG SANFORD MD [facility] ONC [id number] 03/04/2016 07:00:00 03/04/2016 12:35:00 DIS Outpatient GIRISH CHAN MD [facility] SDC GALLSTONES [id number] 02/26/2016 11:06:00 02/26/2016 11:57:00 DIS Outpatient GIRISH CHAN MD [facility] PREOP GALLSTONES [id number] 01/25/2016 08:46:00 01/25/2016 12:23:00 DIS Emergency GERARD JACINTO MD [facility] ER MARQUISE THIGH PAIN [id number] 01/16/2016 13:40:00 01/19/2016 15:30:00 DIS Inpatient GIRISH CHAN MD [facility] 4TH ABD PAIN,BACK PAIN, CHOLELITHIESIS [id number] 01/14/2016 10:55:00 01/14/2016 23:59:59 CLS Outpatient SIMÓN MANNING [facility] QUICK [id number] 10/28/2015 07:08:00 10/28/2015 23:59:59 CLS Outpatient JOSE RUSH MD [facility] LAB CAD,HTN,HLP,KAREN [id number] 06/10/2015 11:36:00 06/10/2015 23:59:59 CLS Outpatient MAGALIS FOURNIER [facility] CARD CAD,HTN,KAREN, BRADYCARDIA [id number] 05/26/2015 13:58:00 05/26/2015 23:59:59 CLS Outpatient MAGALIS FOURNIER [facility] RAD CAD,CAF, HTN [id number] 10/08/2014 09:52:00 10/08/2014 23:59:59 CLS Outpatient JOSE RUSH MD [facility] CARD CAD HTN HLE [id number] 03/31/2014 09:23:00 03/31/2014 10:48:00 DIS Emergency MARLEEN GEORGE DO [facility] ER LEFT FOOT INJURY [id number] 09/25/2013 07:20:00 09/25/2013 23:59:59 CLS Outpatient JOSE RUSH MD [facility] LAB AR,CAD,CAROTID ANTERY STENOSIS,HTN [id number] 09/16/2013 13:44:00 09/16/2013 14:25:00 DIS Emergency NIKOLE PIERRE STOCK LIFTER [facility] ER FALL/RIGHT WRIST PAIN [id number] 06/10/2013 12:49:00 06/10/2013 23:59:59 CLS Outpatient JOSE RUSH MD [facility] CARD CAD,HTN,CA STENOSIS,AR [id number] 03/18/2013 18:47:00 03/18/2013 21:00:00 DIS Emergency BONITA SELF [facility] ER L ARM PAIN [id number] 08/11/2018 06:00:00 ACT Inpatient AZUCENA ROSALES, HIPOLITO Hilton [facility] 4TH VIRAL GASTROENTERITIS,NEW ONSET A -FIB [id number] 10/07/2014 09:43:00 Document Registration [id number] 10/07/2014 09:43:00 Document Registration [id number] 10/07/2014 09:42:00 Document Registration [id number] 05/10/2012 05:46:00 Document Registration [id number] 05/02/2012 19:16:00 Document Registration [id number] 03/04/2012 15:15:00 Document Registration [id number] 02/07/2012 05:44:00 Document Registration [id number] 01/09/2012 06:59:00 Document Registration [id number] 08/24/2011 11:09:00 Document Registration [id number] 07/29/2011 06:26:00 Document Registration [id number] 02/01/2011 06:11:00 Document Registration [id number] 10/28/2010 06:22:00 Document Registration [id number] 10/19/2010 00:04:00 Document Registration [id number] 01/30/2010 06:11:00 Document Registration [id number] 12/01/2009 08:59:00 Document Registration [id number] 07/02/2009 06:06:00 Document Registration [id number] 06/05/2009 07:23:00 Document Registration [id number] 12/02/2016 14:34:00 12/02/2016 23:59:00 DIS Outpatient JOSE RUSH [id number] 01/25/2016 19:10:00 Document Registration [id number] 05/26/2015 14:00:29 ACT Document Registration
--- NOTE | 2018-08-11 06:45 | Diagnostic Imaging Report ---
INDICATION: Dyspnea with vomiting. COMPARISON: 11/30/2016. DISCUSSION: Single portable upright view of the chest was obtained. Stable normal heart size. No focal consolidation, pleural fluid, or pneumothorax. No osseous abnormality. IMPRESSION: 1. Negative chest. Dictated by: Dictated on workstation # [id number]
[2018-08-11 06:55] VITALS: BP 151/67
[2018-08-11] MEDS ORDERED: CATHETER FLUSH 10 ML SYR IV PRN (07:15)
[2018-08-11] MEDS: 1/2 NS W/KCL 20 MEQ/L 1,000 ML IV SCH ×3 (07:40→21:12)
[2018-08-11] MEDS ORDERED: APIXABAN 5 MG (ELIQUIS) TABLET PO SCH (09:00)
[2018-08-11 12:00] VITALS: BP 147/70
--- NOTE | 2018-08-11 12:03 | History & Physical-Hospitalist ---
History of Present Illness HPI/Chief Complaint This is an 83-year-old delightful male who presents with a 24-hour history of nausea vomiting and diarrhea. He said his brother had the same thing finally got over it. Upon presentation to the emergency room he was been found to be in new onset atrial fibrillation. He is a patient of Dr. Campbell from having a stent placed about 20 years ago. The patient denies having any chest pain or palpitations or any other associated symptoms with the A. fib. Source: patient Exam Limitations: no limitations Date Seen 08/11/18 Time Seen by a Provider: 11:30 Attending Physician Laney Kirby MD PCP Akiko Corcoran MD Referring Physician Date of Admission Aug 11, 2018 at 06:00 Home Medications & Allergies Home Medications Reviewed patient Home Medication Reconciliation performed by pharmacy medication reconciliations preventative maintenance technician and/or nursing. Patients Allergies have been reviewed. Allergies Allergies Coded Allergies Iodinated Contrast- Oral and IV Dye (Verified Allergy, Unknown, 11/09/06) Past Gasqpav-Bvkgqh-Eahdis Hx Past Med/Social Hx: Reviewed Nursing Past Med/Soc Hx Patient Social History Marrital Status: Employed/Student: retired ([employer]) Alcohol Use: Denies Use Recreational Drug Use: No Smoking Status: Former Smoker Former Smoker, Quit: Feb 25, 1950 Type Used: Cigarettes 2nd Hand Smoke Exposure: No Physical Abuse Screen: No Sexual Abuse: No Recent Foreign Travel: No Contact w/other who traveled: No Recent Hopitalizations: No Recent Infectious Disease Expo: No Immunizations Up To Date Tetanus Booster (TDap): Less than 5yrs Date of Pneumonia Vaccine: Jul 10, 2011 Date of Influenza Vaccine: May 28, 2018 Seasonal Allergies Seasonal Allergies: No Past Medical History Surgeries: Coronary Stent Cardiac: Coronary Artery Disease, High Cholesterol, Hypertension Reproductive: No Sexually Transmitted Disease: No HIV/AIDS: No Gastrointestinal: Hiatal Hernia Musculoskeletal: Arthritis HEENT: Cataract Hearing Impairment: Hard of Hearing History of Blood Disorders: No Adverse Reaction to Blood Yan: No Family History CANCER G8 BROTHER FH: cancer No Pertinent Family Hx Review of Systems Constitutional: see HPI, weakness Respiratory: no symptoms reported Cardiovascular: no symptoms reported Gastrointestinal: diarrhea, nausea, vomiting, other (Pickups) Genitourinary: no symptoms reported Musculoskeletal: no symptoms reported Skin: no symptoms reported Psychiatric/Neurological: No Symptoms Reported Physical Exam Physical Exam Vital Signs Vital Signs - First Documented 08/11/18 04:40 Temp 97.7 Pulse 83 Resp 20 B/P (MAP) 130/81 (97) Pulse Ox 94 O2 Delivery Room Air Capillary Refill : Less Than 3 Seconds Height, Weight, BMI Height: 5'2.00" Weight: 150lbs. 6.0oz. 68.554284yf; 23.03 BMI Method:Stated General Appearance: No Apparent Distress, WD/WN HEENT: Other (Cleft palate) Neck: Non Tender, Supple Respiratory: Lungs Clear, Normal Breath Sounds, No Accessory Muscle Use, No Respiratory Distress Cardiovascular: No JVD, Systolic Murmur, Irregularly Irregular Gastrointestinal: Abnormal Bowel Sounds, Distended Back: Normal Inspection Extremity: Normal Capillary Refill, Normal Inspection, Non Tender, No Calf Tenderness Neurologic/Psychiatric: Alert, Oriented x3, No Motor/Sensory Deficits, Normal Mood/Affect Skin: Normal Color, Warm/Dry Lymphatic: No Adenopathy Results Results/Procedures Labs Laboratory Tests 08/11/18 04:47 Patient resulted labs reviewed. Assessment/Plan Admission Diagnosis Nausea, vomiting and diarrhea New onset atrial fibrillation Coronary artery disease status post stent placement Admission Status: Observation Clinical Quality Measures DVT/VTE Risk/Contraindication: Risk Factor Score Per Nursin RFS Level Per Nursing on Admit: 3=High Copy Copies To 1: AKIKO CORCORAN MD, KATHLEEN M MD Aug 11, 2018 12:03
[2018-08-11] MEDS: ONDANSETRON 4 MG/2 ML (SDV) Z0FRAN IV PRN ×2 (12:49→18:29)
[2018-08-11] MEDS: meTOprolol SUCCINATE 100 MG (TOPROL XL) TAB PO SCH (14:35)
[2018-08-11] MEDS: ASPIRIN E.C. 81 MG (ECOTRIN) TAB PO SCH (14:36)
[2018-08-11] MEDS: amLODIPine 10 MG (NORVASC) TAB PO SCH (14:36)
[2018-08-11] MEDS: LOSARTAN 50 MG (COZAAR) TAB PO SCH (14:36)
--- NOTE | 2018-08-11 16:03 | Diagnostic Imaging Report ---
Indication: Abdominal pain and vomiting. Comparison: None. Discussion: Supine and upright views of the abdomen were obtained. The lung bases are unremarkable. Liquid stool is noted within the colon. No abnormal small bowel loops are identified. Previous hernia repair is present within the left lower quadrant. No acute osseous abnormality or pathologic calcification. No pneumatosis, pneumoperitoneum or portal venous gas. Impression: Diarrhea. No obstruction. Dictated by: Dictated on workstation # [id number]
[2018-08-11 16:15] VITALS: BP 160/69
--- NOTE | 2018-08-11 19:12 | Consultation-Cardiology ---
HPI-Cardiology Cardiology Consultation: Date of Consultation 08/11/18 Date of Admission Attending Physician Laney Kirby MD Admitting Physician Akiko Lui MD Consulting Physician Lida FLORES MD HPI: Time Seen by a Provider: 11:45 Chief Complaint: Irregular rhythm. This is a 83-year-old gentleman who follows with Dr. Lui and Dr. Triplett for cardiology. According to the patient he does have history of CAD, PCI with stents. Denies any history of atrial fibrillation in the past. He presented to the ER with complains of nausea, vomiting and diarrhea. According to the ER note he was found to be in atrial fibrillation. The patient denies any chest pain, shortness of breath, palpitation, syncope or near syncope. Review of Systems-Cardiology Review of Systems Constitutional: As described under HPI; No As described under HPI, No no symptoms reported, No chills, No fever, No lightheadedness Eyes: No As described under HPI, No no symptoms reported, No blindness, No blurred vision, No contact lenses, No drainage, No decreased acuity, No foreign body sensation, No pain, No vision change Ears/Nose/Throat: No As described under HPI, No no symptoms reported, No chronic hearing loss, No ear discharge, No ear pain, No nasal drainage, No ulcerations Respiratory: No no symptoms reported; As described under HPI; No As described under HPI, No cough, No orthopnea, No shortness of breath, No SOB with excertion Cardiovascular: No no symptoms reported; As described under HPI; No As described under HPI, No chest pain, No edema, No irregular heart rate, No lightheadedness, No palpitations Gastrointestinal: No no symptoms reported, No As described under HPI, No abdomen distended, No abdominal pain, No blood streaked bowels, No constipation , No diarrhea, No nausea, No vomiting; nausea/vomiting/diarrhea; No stool coloration changes Genitourinary: No As described under HPI, No burning, No dysuria, No discharge , No frequency, No flank pain, No hematuria, No urgency Skin: No rash, No skin related problems, No ulcerations Psychiatric/Neurological: No anxiety, No depression, No seizure, No focal weakness, No syncope Hematologic: No bleeding abnormalities WLY-Aojawc-Ncsptr Hx Patient Social History Marrital Status: Employed/Student: retired ([employer]) Alcohol Use: Denies Use Recreational Drug Use: No Smoking Status: Former Smoker Former smoker/When Quit: May 10, 2012 Type Used: Cigarettes 2nd Hand Smoke Exposure: No Recent Foreign Travel: No Recent Infectious Disease Expo: No Hospitalization with Isolation: Denies Physical Abuse Screen: No Sexual Abuse: No Immunizations Up To Date Tetanus Booster (TDap): Less than 5yrs Date of Pneumonia Vaccine: Jul 10, 2011 Date of Influenza Vaccine: May 28, 2018 Past Medical History PMH As described under Assessment. Family Medical History Family History: CANCER G8 BROTHER FH: cancer Allergies and Home Medications Allergies Coded Allergies: Iodinated Contrast- Oral and IV Dye (Verified Allergy, Unknown, 11/09/06) Home Medications Amlodipine Besylate 10 Mg Tablet, 10 MG PO DAILY, (Reported) Aspirin 81 Mg Tablet.dr, 81 MG PO DAILY, (Reported) Atorvastatin Calcium 40 Mg Tablet, 40 MG PO HS, (Reported) Clopidogrel Bisulfate 75 Mg Tablet, 75 MG PO DAILY, (Reported) Docusate Sodium 100 Mg Capsule, 100 MG PO DAILY Prescribed by: NIKOLE PIERRE on 11/30/16 1533 Metoprolol Succinate 100 Mg Tab.er.24h, 100 MG PO DAILY, (Reported) Patient Home Medication List Home Medication List Reviewed: Yes Physical Exam-Cardiology Physical Exam Vital Signs/I&O 08/11/18 08/11/18 08/11/18 08/11/18 11:57 12:00 12:42 16:15 Temp 98.4 98.7 Pulse 80 83 80 82 Resp 16 12 B/P (MAP) 147/70 (95) 160/69 (99) Pulse Ox 94 95 O2 Delivery Room Air Room Air 08/11/18 08/11/18 08/11/18 08/11/18 19:00 19:35 19:57 20:40 Temp 101.9 101.9 101.0 Pulse 80 82 Resp 18 B/P (MAP) 156/67 (96) Pulse Ox 92 O2 Delivery Room Air Capillary Refill : Less Than 3 Seconds Constitutional: AAO x 3 HEENT: No PERRL, No normal ENT inspection, No TMs normal, No pharynx normal, No scleral icterus (R), No scleral icterus (L), No pale conjunctivae (R), No pale conjunctivae (L), No photophobia, No TM abnormal (R), No TM abnormal (L), No pharyngeal erythema, No tonsillar exudate, No other, No discharge, No EOMI, No hearing is well preserved, No hard of hearing, No oral hygience is good, No ulceration, No xanthelasmas are seen Neck: No non-tender, No full range of motion, No supple, No normal inspection, No carotid bruit, No limited range of motion, No lymphadenopathy (R), No lymphadenopathy (L), No tender lateral, No tender midline, No thyromegaly, No other, No carotid pulses are 2 + bilaterally, No with good upstrokes Respiratory: No accessory muscle use, No respiratory distress, No chest tender , No chest expansion is symmetric; chest is bilaterally symmetric; No lungs clear to percussion; lungs clear to auscultation; No crackles, No rhonchi, No rales, No stridor, No wheezing, No pleural rub, No other Cardiovascular: regular rate-rhythm; No irregularly irregular, No extra beats, No parasternal heave is noted, No JVD, No edema, No bradycardia, No tachycardia , No point of maximal impulse, No cardiac thrills are palpable; S1 and S2; No gallop/S3, No gallop/S4, No diastolic murmur, No systolic murmur, No friction rub, No click, No other Gastrointestinal: No tender, No soft, No round, No distended, No pulsatile mass , No organomegaly, No guarding, No rebound, No tenderness, No hernia, No mass, No audible bowel sounds, No abnormal bowel sounds, No abdominal bruits, No spleenomegaly, No other Rectal: deferred Extremities: No normal range of motion, No non-tender, No normal inspection, No pedal edema, No calf tenderness, No normal capillary refill, No pelvis stable , No calf tenderness, No inflammation, No pedal edema, No slow capillary refill , No swelling, No other, No abrasion, No clubbing, No cyanosis, No ecchymosis, No laceration, No no lower extremity edema bilateral, No significant edema, No tenderness, No wound Neurologic/Psychiatric: no motor/sensory deficits, alert, normal mood/affect, oriented x 3 Skin: No normal color, No warm/dry, No cyanosis, No cool, No diaphoresis, No damp, No ecchymosis, No jaundice, No mottled, No pallor, No rash, No tattoos/ piercings, No ulcerations, No rash on exposed areas, No ulcerations on exposed areas, No other Data Review Labs Laboratory Tests 08/11/18 04:47: White Blood Count 10.5, Red Blood Count 4.70, Hemoglobin 14.6, Hematocrit 42, Mean Corpuscular Volume 89, Mean Corpuscular Hemoglobin 31, Mean Corpuscular Hemoglobin Concent 35, Red Cell Distribution Width 15.4H, Platelet Count 190, Mean Platelet Volume 11.0H, Neutrophils (%) (Auto) 75, Lymphocytes (%) (Auto) 14 , Monocytes (%) (Auto) 11, Eosinophils (%) (Auto) 1, Basophils (%) (Auto) 0, Neutrophils # (Auto) 7.9H, Lymphocytes # (Auto) 1.5, Monocytes # (Auto) 1.1H, Eosinophils # (Auto) 0.1, Basophils # (Auto) 0.0, Prothrombin Time 13.5, INR Comment 1.0, Activated Partial Thromboplast Time 31, Sodium Level 140, Potassium Level 3.9, Chloride Level 105, Carbon Dioxide Level 21, Anion Gap 14, Blood Urea Nitrogen 18, Creatinine 1.11, Estimat Glomerular Filtration Rate > 60 , BUN/Creatinine Ratio 16, Glucose Level 137H, Lactic Acid Level 2.15*H, Calcium Level 10.4H, Corrected Calcium 10.0, Total Bilirubin 1.0, Aspartate Amino Transf (AST/SGOT) 20, Alanine Aminotransferase (ALT/SGPT) 19, Alkaline Phosphatase 109, Troponin I < 0.30, Total Protein 7.4, Albumin 4.5 08/11/18 05:32: Urine Color YELLOW, Urine Clarity CLEAR, Urine pH 5, Urine Specific [place] 1.025H, Urine Protein 2+H, Urine Glucose (UA) NEGATIVE, Urine Ketones 1+H, Urine Nitrite NEGATIVE, Urine Bilirubin NEGATIVE, Urine Urobilinogen NORMAL, Urine Leukocyte Esterase NEGATIVE, Urine RBC (Auto) NEGATIVE, Urine RBC NONE, Urine WBC NONE, Urine Squamous Epithelial Cells 5-10, Urine Crystals NONE, Urine Bacteria NEGATIVE, Urine Casts NONE, Urine Mucus LARGEH, Urine Culture Indicated NO 08/11/18 07:09: Lactic Acid Level 0.95 08/11/18 11:30: Troponin I < 0.30 ECG Impression ECG Initial ECG Rhythm: Normal Sinus A/P-Cardiology Assessment/Admission Diagnosis Irregular rhythm, suspicion for atrial fibrillation, Nausea, vomiting, diarrhea, History of CAD with stents. Plan Irregular rhythmEKG shows sinus rhythm. I have reviewed telemetry which has been labeled as atrial fibrillation but is likely sinus rhythm. However I do not have any rhythm strips from the ER with the diagnosis of atrial fibrillation was made. He has already been started on Eliquis. Patient is 83 years of age, weight is over 60 KGs, creatinine is 1.1 therefore Eliquis doses 5 mg twice a day. The patient may need a Holter, event monitor on discharge to make a definitive diagnosis of atrial fibrillation. Nausea, vomiting, diarrhea, resolving. CAD, stents, continue outpatient medical therapy and follow-up with Dr. Triplett. Thank you for your consultation. Please call me if you have any questions. Yohannes Flores MD, FACP, FACC, FSCAI, FHRS, CCDS Interventional Cardiology Cardiac Electrophysiology Vascular Medicine and Endovascular Interventions Clinical Quality Measures DVT/VTE Risk/Contraindication: Risk Factor Score Per Nursin RFS Level Per Nursing on Admit: 3=High Lida FLORES MD Aug 11, 2018 19:12
[2018-08-11 19:35] VITALS: BP 156/67
[2018-08-11] MEDS: ACETAMINOPHEN 325 MG TABLET PO PRN (19:57)
[2018-08-11] MEDS ORDERED: ATORVASTATIN 40 MG (LIPITOR) TABLET PO SCH ×2 (21:00)
[2018-08-11] MEDS: APIXABAN 5 MG (ELIQUIS) TABLET PO SCH (21:13)
[2018-08-12] VITALS: BP 140/65
[2018-08-12] MEDS: 1/2 NS W/KCL 20 MEQ/L 1,000 ML IV SCH ×3 (03:47→17:56)
[2018-08-12 07:22] LABS: BASOPHILS % (AUTO) 0 % (0-10); EOSINOPHILS % (AUTO) 0 % (0-10); HEMATOCRIT 36 % (40-54); HEMOGLOBIN 12.2 G/DL (13.3-17.7); LYMPHOCYTES # (AUTO) 1.6 X 10^3 (1.0-4.0); LYMPHOCYTES % (AUTO) 13 % (12-44); MEAN CORPUSCULAR HEMOGLOBIN 31 PG (25-34); MEAN CORPUSCULAR HGB CONC 34 G/DL (32-36); MEAN CORPUSCULAR VOLUME 90 FL (80-99); MEAN PLATELET VOLUME 10.7 FL (7.4-10.4); MONOCYTES # (AUTO) 1.5 X 10^3 (0.0-1.0); MONOCYTES % (AUTO) 13 % (0-12); NEUTROPHILS # (AUTO) 9.2 X 10^3 (1.8-7.8); NEUTROPHILS % (AUTO) 75 % (42-75); PLATELET COUNT 152 10^3/uL (130-400); RED BLOOD COUNT 3.99 10^6/uL (4.35-5.85); WHITE BLOOD COUNT 12.4 10^3/uL (4.3-11.0)
[2018-08-12 07:54] LABS: ALANINE AMINOTRANSFERASE 17 U/L (0-55); ALBUMIN 3.7 GM/DL (3.2-4.5); ALKALINE PHOSPHATASE 84 U/L (40-136); BUN/CREATININE RATIO 15; CALCIUM 8.1 MG/DL (8.5-10.1); CARBON DIOXIDE 19 MMOL/L (21-32); CHLORIDE 108 MMOL/L (98-107); CREATININE SERUM 0.81 MG/DL (0.60-1.30); GFR ESTIMATED > 60; GLUCOSE 92 MG/DL (70-105); MAGNESIUM 1.5 MG/DL (1.8-2.4); POTASSIUM 4.4 MMOL/L (3.6-5.0); SODIUM 135 MMOL/L (135-145)
[2018-08-12 08:00] VITALS: BP 160/70
[2018-08-12] MEDS: ONDANSETRON 4 MG/2 ML (SDV) Z0FRAN IV PRN ×2 (08:10→17:56)
[2018-08-12] MEDS: ASPIRIN E.C. 81 MG (ECOTRIN) TAB PO SCH (08:11)
[2018-08-12] MEDS: LOSARTAN 50 MG (COZAAR) TAB PO SCH (08:11)
[2018-08-12] MEDS: amLODIPine 10 MG (NORVASC) TAB PO SCH (08:11)
[2018-08-12] MEDS: meTOprolol SUCCINATE 100 MG (TOPROL XL) TAB PO SCH (08:11)
[2018-08-12] MEDS: APIXABAN 5 MG (ELIQUIS) TABLET PO SCH ×2 (08:11→20:36)
[2018-08-12] MEDS ORDERED: NON-FORMULARY MEDICATION 1 EA EA (Aspirin (Aspir 81) 81 MG) PO SCH (09:00)
[2018-08-12] MEDS ORDERED: meTOprolol SUCCINATE 100 MG (TOPROL XL) TAB PO SCH (09:00)
[2018-08-12] MEDS ORDERED: DOCUSATE SODIUM 100 MG (COLACE) CAP PO SCH (09:00)
[2018-08-12] MEDS ORDERED: PATIENT MAY USE OWN MEDS, ALL MC SCH (11:45)
[2018-08-12 12:00] VITALS: BP 153/70
[2018-08-12] MEDS: ACETAMINOPHEN 325 MG TABLET PO PRN ×2 (12:08→17:56)
--- NOTE | 2018-08-12 12:43 | Progress Note-Hospitalist ---
Subjective HPI/CC On Admission Date Seen by Provider: Aug 12, 2018 Time Seen by Provider: 12:15 This is an 83-year-old delightful male who presents with a 24-hour history of nausea vomiting and diarrhea. He said his brother had the same thing finally got over it. Upon presentation to the emergency room he was been found to be in new onset atrial fibrillation. He is a patient of Dr. Rojas's from having a stent placed about 20 years ago. The patient denies having any chest pain or palpitations or any other associated symptoms with the A. fib. Subjective/Events-last exam patient continues to have vomiting and diarrhea. He is having abdominal discomfort that's localized to the right lower quadrant. He has an appendix. His temperature was up to 101 overnight. Discussion was had with Dr. Flores who cannot find evidence of atrial fibrillation. C. difficile toxin was negative Review of Systems Gastrointestinal: Nausea, Vomiting, Abdominal Pain, Diarrhea Neurological: Weakness Focused Exam Lactate Level 08/11/18 04:47: Lactic Acid Level 2.15*H 08/11/18 07:09: Lactic Acid Level 0.95 Objective Exam Vital Signs Vital Signs Date Time Temp Pulse Resp B/P (MAP) Pulse Ox O2 Delivery O2 Flow Rate FiO2 08/12/18 12:08 102.0 08/12/18 08:00 67 20 160/70 (100) 96 Room Air Capillary Refill : Less Than 3 Seconds General Appearance: No Apparent Distress, WD/WN Neck: Normal Inspection, Supple Respiratory: Lungs Clear, Normal Breath Sounds, No Accessory Muscle Use, No Respiratory Distress Cardiovascular: Regular Rate, Rhythm, No Gallop, No Murmur, Normal Peripheral Pulses Gastrointestinal: Normal Bowel Sounds, Tenderness (ight lower quadrant) Rectal: Deferred Back: Normal Inspection Extremity: Normal Inspection, Non Tender, No Pedal Edema Skin: Normal Color, Warm/Dry Results/Procedures Lab Laboratory Tests 08/12/18 07:10 Patient resulted labs reviewed. Assessment/Plan Assessment and Plan Assess & Plan/Chief Complaint Nausea, vomiting and diarrhea-c. difficile toxin negative, most likely viral but will obtain a CT abdomen pelvis because of the right lower quadrant pain. New onset atrial fibrillation-as had PACs but no A. fib since admission Coronary artery disease status post stent placement- stable hypomagnesemia will replace Clinical Quality Measures DVT/VTE Risk/Contraindication: Risk Factor Score Per Nursin RFS Level Per Nursing on Admit: 3=High HIPOLITO ZENG MD Aug 12, 2018 12:43
[2018-08-12] MEDS ORDERED: MAGNESIUM 1 GM/100 ML IVPB 100 ML IV NR (12:45)
--- NOTE | 2018-08-12 13:02 | Cardiology Progress Note ---
Cardiology SOAP Progress Note Subjective: No cardiac symptoms. Objective: I&O/Vital Signs 08/12/18 08/12/18 08/12/18 08/12/18 02:09 07:00 08:00 12:00 Temp 99.5 100.3 101.1 Pulse 63 67 66 Resp 20 18 B/P (MAP) 160/70 (100) 153/70 (97) Pulse Ox 96 94 O2 Delivery Room Air Room Air 08/12/18 12:08 Temp 102.0 08/12/18 00:00 Intake Total 3450 ml Output Total 2840 ml Balance 610 ml Weight (Pounds): 150 Weight (Ounces): 6.0 Weight (Calculated Kilograms): [id number] Constitutional: AAO x 3 Respiratory: No accessory muscle use, No respiratory distress, No chest tender , No chest expansion is symmetric; chest is bilaterally symmetric; No lungs clear to percussion; lungs clear to auscultation; No crackles, No rhonchi, No rales, No stridor, No wheezing, No pleural rub, No other Cardiovascular: regular rate-rhythm; No irregularly irregular, No extra beats, No parasternal heave is noted, No JVD, No edema, No bradycardia, No tachycardia , No point of maximal impulse, No cardiac thrills are palpable; S1 and S2; No gallop/S3, No gallop/S4, No diastolic murmur, No systolic murmur, No friction rub, No click, No other Gastrointestional: No tender, No soft, No round, No distended, No pulsatile mass, No organomegaly, No guarding, No rebound, No tenderness, No hernia, No mass, No audible bowel sounds, No abnormal bowel sounds, No abdominal bruits, No spleenomegaly, No other Extremities: No normal range of motion, No non-tender, No normal inspection, No pedal edema, No calf tenderness, No normal capillary refill, No pelvis stable , No calf tenderness, No inflammation, No pedal edema, No slow capillary refill , No swelling, No other, No abrasion, No clubbing, No cyanosis, No ecchymosis, No laceration, No no lower extremity edema bilateral, No significant edema, No tenderness, No wound Neurologic/Psychiatric: no motor/sensory deficits, alert, normal mood/affect, oriented x 3 Skin: No normal color, No warm/dry, No cyanosis, No cool, No diaphoresis, No damp, No ecchymosis, No jaundice, No mottled, No pallor, No rash, No tattoos/ piercings, No ulcerations, No rash on exposed areas, No ulcerations on exposed areas, No other Results/Procedures: Labs Laboratory Tests 08/12/18 07:10: White Blood Count 12.4H, Red Blood Count 3.99L, Hemoglobin 12.2L, Hematocrit 36L , Mean Corpuscular Volume 90, Mean Corpuscular Hemoglobin 31, Mean Corpuscular Hemoglobin Concent 34, Red Cell Distribution Width 16.0H, Platelet Count 152, Mean Platelet Volume 10.7H, Neutrophils (%) (Auto) 75, Lymphocytes (%) (Auto) 13 , Monocytes (%) (Auto) 13H, Eosinophils (%) (Auto) 0, Basophils (%) (Auto) 0, Neutrophils # (Auto) 9.2H, Lymphocytes # (Auto) 1.6, Monocytes # (Auto) 1.5H, Eosinophils # (Auto) 0.0, Basophils # (Auto) 0.0, Sodium Level 135, Potassium Level 4.4, Chloride Level 108H, Carbon Dioxide Level 19L, Anion Gap 8, Blood Urea Nitrogen 12, Creatinine 0.81, Estimat Glomerular Filtration Rate > 60, BUN/ Creatinine Ratio 15, Glucose Level 92, Calcium Level 8.1L, Corrected Calcium 8.3L, Magnesium Level 1.5L, Total Bilirubin 1.0, Aspartate Amino Transf (AST/ SGOT) 23, Alanine Aminotransferase (ALT/SGPT) 17, Alkaline Phosphatase 84, Total Protein 6.0L, Albumin 3.7 Microbiology 08/12/18 C. difficile [facility] Antigen & Toxins - Final, Complete A/P: Assessment/Dx: Irregular rhythm, suspicion for atrial fibrillation, Nausea, vomiting, diarrhea, History of CAD with stents. Plan: Irregular rhythmEKG shows sinus rhythm. I have reviewed telemetry which has been labeled as atrial fibrillation but is likely sinus rhythm. However I do not have any rhythm strips from the ER with the diagnosis of atrial fibrillation was made. He has already been started on Eliquis. Patient is 83 years of age, weight is over 60 KGs, creatinine is 1.1 therefore Eliquis doses 5 mg twice a day. The patient may need a Holter, event monitor on discharge to make a definitive diagnosis of atrial fibrillation. Echocardiogram shows normal LV size and function. Normal LVEF. Left atrial size of 3.5 cm. Moderate mitral regurgitation. Nausea, vomiting, diarrhea, resolving. CAD, stents, continue outpatient medical therapy and follow-up with Dr. Triplett. Thank you for your consultation. Please call me if you have any questions. Yohannes Flores MD, FACP, FACC, FSCAI, FHRS, CCDS Interventional Cardiology Cardiac Electrophysiology Vascular Medicine and Endovascular Interventions Focused Exam Lactate Level 08/11/18 04:47: Lactic Acid Level 2.15*H 08/11/18 07:09: Lactic Acid Level 0.95 Lida FLORES MD Aug 12, 2018 1:02 pm
--- NOTE | 2018-08-12 13:18 | Diagnostic Imaging Report ---
PROCEDURE: CT abdomen and pelvis without contrast. TECHNIQUE: Multiple contiguous axial images were obtained through the abdomen and pelvis without the use of intravenous contrast. INDICATION: Right lower quadrant pain. FINDINGS: Mild infiltrate noted in the lung bases bilaterally more prominent on the left. The liver appears normal. Gallbladder is absent. Pancreas is atrophic. Spleen is normal. The adrenal glands are normal. The kidneys show no evidence of obstruction. There is a 3 mm calculus in upper pole calyx of left kidney. Aorta is atherosclerotic without evidence of aneurysm. The stomach and small bowel are not distended. The colon shows air-fluid levels throughout without evidence of obstruction. The appendix is normal. There is no evidence of diverticulitis. There is liquid stool in the colon to the rectum. There is no free air or free fluid. No intra-abdominal adenopathy of pathologic size. No bony lesion. Anterior abdominal wall shows ventral hernia repair without recurrent hernia. IMPRESSION: 1. The colon is filled with liquid stool and air without evidence of obstruction. No bowel wall thickening. No evidence of diverticulitis or appendicitis. Findings could represent generalized enteritis. 2. Mild infiltrate in the lung bases slightly more severe on the left. Dictated by: Dictated on workstation # [id number]
[2018-08-12 16:58] VITALS: BP 160/68
--- NOTE | 2018-08-12 18:48 | Diagnostic Imaging Report ---
INDICATION: Fever COMPARISON: 08/11/2018 FINDINGS: Single view of the chest demonstrate stable cardiac enlargement. Lungs are otherwise clear. There is no pneumothorax. No osseous lesion seen. IMPRESSION: Cardiac enlargement without pulmonary edema or infiltrate. Dictated by: Dictated on workstation # [id number]
[2018-08-12] MEDS ORDERED: 1/2 NS W/KCL 20 MEQ/L 1,000 ML IV SCH (19:45)
[2018-08-12 20:00] VITALS: BP 133/75
[2018-08-12] MEDS ORDERED: ATORVASTATIN 40 MG (LIPITOR) TABLET PO SCH (21:00)
[2018-08-13] VITALS: BP 157/70
[2018-08-13 05:16] LABS: BASOPHILS % (AUTO) 0 % (0-10); EOSINOPHILS % (AUTO) 1 % (0-10); HEMATOCRIT 37 % (40-54); HEMOGLOBIN 12.6 G/DL (13.3-17.7); LYMPHOCYTES # (AUTO) 1.2 X 10^3 (1.0-4.0); LYMPHOCYTES % (AUTO) 16 % (12-44); MEAN CORPUSCULAR HEMOGLOBIN 31 PG (25-34); MEAN CORPUSCULAR HGB CONC 34 G/DL (32-36); MEAN CORPUSCULAR VOLUME 90 FL (80-99); MEAN PLATELET VOLUME 10.7 FL (7.4-10.4); MONOCYTES # (AUTO) 0.9 X 10^3 (0.0-1.0); MONOCYTES % (AUTO) 12 % (0-12); NEUTROPHILS # (AUTO) 5.2 X 10^3 (1.8-7.8); NEUTROPHILS % (AUTO) 71 % (42-75); PLATELET COUNT 129 10^3/uL (130-400); RED BLOOD COUNT 4.08 10^6/uL (4.35-5.85); RED CELL DISTRIBUTION WIDTH 15.7 % (10.0-14.5); WHITE BLOOD COUNT 7.3 10^3/uL (4.3-11.0)
[2018-08-13 05:39] LABS: ALANINE AMINOTRANSFERASE 17 U/L (0-55); ALBUMIN 3.5 GM/DL (3.2-4.5); ALKALINE PHOSPHATASE 80 U/L (40-136); BILIRUBIN,TOTAL 0.9 MG/DL (0.1-1.0); BUN/CREATININE RATIO 17; CALCIUM 8.2 MG/DL (8.5-10.1); CARBON DIOXIDE 17 MMOL/L (21-32); CHLORIDE 109 MMOL/L (98-107); CREATININE SERUM 0.78 MG/DL (0.60-1.30); GFR ESTIMATED > 60; GLUCOSE 84 MG/DL (70-105); POTASSIUM 4.2 MMOL/L (3.6-5.0); SODIUM 134 MMOL/L (135-145); TOTAL PROTEIN 5.7 GM/DL (6.4-8.2)
[2018-08-13 08:00] VITALS: BP 139/68
--- NOTE | 2018-08-13 08:54 | Cardiology Progress Note ---
Subjective Date Seen by Provider: Aug 13, 2018 Time Seen by Provider: 08:49 Subjective/Events-last exam Patient was seen and evaluated, feeling better, still having diarrhea, no chest pain or shortness of breath, no further episodes of atrial fibrillation noted Review of Systems General: No Chills, No Night Sweats, No Fatigue, No Malaise, No Appetite, No Other HEENT: No Head Aches, No Visual Changes, No Eye Pain, No Ear Pain, No Dysphasia , No Sinus Congestion, No Post Nasal Drip, No Sore Throat, No Other Pulmonary: No Dyspnea, No Cough, No Pleuritic Chest Pain, No Other Cardiovascular: No: Chest Pain, Palpitations, Orthopnea, Paroxysmal Noc. Dyspnea, Edema, Lt Headedness, Other Gastrointestinal: Nausea, Diarrhea Focused Exam Lactate Level 08/11/18 04:47: Lactic Acid Level 2.15*H 08/11/18 07:09: Lactic Acid Level 0.95 Objective-Cardiology Exam Last Set of Vital Signs Vital Signs 08/13/18 08/13/18 00:00 07:20 Temp 99.4 Pulse 71 Resp 16 B/P (MAP) 157/70 (99) Pulse Ox 95 O2 Delivery Room Air Capillary Refill : Less Than 3 Seconds I&O Intake and Output 08/13/18 00:00 Intake Total 4100 ml Output Total 1200 ml Balance 2900 ml Intake Oral 1000 ml IV Total 3100 ml Output Urine Total 1200 ml # Voids 6 # Bowel Movements 5 General: Alert, Oriented X3, Cooperative HEENT: Atraumatic, PERRLA Neck: Supple, No JVD, No Thyromegaly Lungs: Clear to Auscultation, Normal Air Movement Heart: Normal S1, Normal S2, Other (irregular rhythm, systolic murmur at the left sternal border) Abdomen: Normal Bowel Sounds, Soft, No Tenderness, No Hepatosplenomegaly, No Masses Extremities: No Clubbing, No Cyanosis, No Edema, Normal Pulses, No Tenderness/ Swelling Skin: No Rashes, No Breakdown, No Significant Lesion Neuro: Normal Speech, Strength at 5/5 X4 Ext, Normal Tone, Sensation Intact Psych/Mental Status: Mental Status NL, Mood NL Results Lab Laboratory Tests 08/13/18 05:05 A/P-Cardiology Admission Diagnosis Gastroenteritis Paroxysmal atrial fibrillation Coronary artery disease Hypertension Assessment/Plan Questionable paroxysmal atrial fibrillation, it was reported that he had an atrial fibrillation episode in the emergency room, has been in sinus rhythm since admission. He was started on Eliquis, I will continue monitoring and planning to evaluate a Holter monitor. History of frequent premature atrial contractions, atrial bigeminy. Currently asymptomatic. Continue to monitor. Echocardiogram was done during this hospitalization showing normal left ventricular size, normal left atrial size. Mild mitral regurgitation, mild aortic stenosis. Pulmonary artery pressure of 40-45 mmHg. Continue to monitor Gastroenteritis, nausea vomiting and diarrhea, reporting improvement in the vomiting, still having nausea and diarrhea, managed by primary care physician Coronary artery disease, history of stent 2.0x13 mm Pixel to the obtuse marginal branch in 2004. Since then no further intervention was done. Had multiple cardiac catheterization, last cardiac catheterization was done in 2009 showing 80 percent ostial diagonal artery stenosis very small artery not amenable to intervention. 90 percent ostial circumflex artery very small artery not amenable to intervention. Small right coronary artery nondominant with diffuse disease. 50 percent ostial left main and 50 percent mid LAD stenosis treated conservatively, stress test was done in May 2017 showing diaphragmatic attenuation with mild decrease uptake at the mid to apical inferior wall and inferolateral wall with subtle reversibility, asymptomatic. Continue to monitor. Mild aortic regurgitation, Mild aortic stenosis, continue to monitor no changes are recommended Pulmonary hypertension, recent pulmonary artery pressure 40 mmHg, continue to monitor Hypertension, continue to monitor blood pressure Hyperlipidemia, monitor lipids, hold statin Carotid stenosis, moderate bilateral disease, last ultrasound was done in May 2017, continue to monitor Clinical Quality Measures DVT/VTE Risk/Contraindication: Risk Factor Score Per Nursin RFS Level Per Nursing on Admit: 3=High JOSE RUSH MD Aug 13, 2018 08:54
[2018-08-13] MEDS ORDERED: amLODIPine 10 MG (NORVASC) TAB PO SCH (09:00)
[2018-08-13] MEDS ORDERED: ASPIRIN E.C. 81 MG (ECOTRIN) TAB PO SCH (09:00)
[2018-08-13] MEDS ORDERED: meTOprolol SUCCINATE 100 MG (TOPROL XL) TAB PO SCH (09:00)
[2018-08-13] MEDS ORDERED: LOSARTAN 50 MG (COZAAR) TAB PO SCH (09:00)
[2018-08-13] MEDS ORDERED: LOSA100T8 PO (10:41)
[2018-08-13] MEDS ORDERED: OMEG-160 PO (10:44)
[2018-08-13] MEDS ORDERED: APIX5TAB PO (13:22)
--- NOTE | 2018-08-13 13:33 | Discharge Inst-Simple/Standard ---
Discharge Inst-Standard Discharge Medications New, Converted or Re-Newed RX: Transmitted to Pharmacy Patient Instructions/Follow Up Plan of Care/Instructions/FU: Please continue to take your medications as written. Please follow up with Eva Pedraza and with Dr Triplett as recommended. Activity as Tolerated: Yes Discharge Diet: No Restrictions Return to The Hospital For: Worsening diarrhea, abdominal pain, fever, inability to keep anything down orally, if you feel you are getting worse. SUNITA SHEETS MD Aug 13, 2018 13:33
[2018-08-13 14:00] VITALS: BP 162/72
--- NOTE | 2018-08-13 15:11 | Discharge Summary-Hospitalist ---
Diagnosis/Chief Complaint Date of Admission Aug 11, 2018 at 06:40 Date of Discharge Discharge Date: Aug 13, 2018 Admission Diagnosis Nausea, vomiting and diarrhea New onset atrial fibrillation Coronary artery disease status post stent placement Discharge Summary Discharge Physical Exam Allergies: Coded Allergies: Iodinated Contrast- Oral and IV Dye (Verified Allergy, Unknown, 11/09/06) Vitals & I&Os Vital Signs Date Time Temp Pulse Resp B/P (MAP) Pulse Ox O2 Delivery O2 Flow Rate FiO2 08/13/18 13:24 73 08/13/18 08:00 Room Air 08/13/18 08:00 98.8 18 139/68 (91) 96 General Appearance: No Apparent Distress, Chronically ill Cardiovascular: Regular Rate, Rhythm, No Murmur Gastrointestinal: Normal Bowel Sounds, Soft Neurologic/Psychiatric: Alert, Oriented x3 Hospital Course Pt was admitted for dehydration from viral gastroenteritis. He was treated with IVF and improved. His diarrhea slowed and abdominal pain resolved. He was tolerating a diet on day of discharge without difficulty. He was comfortable with plan to discharge home and denied any needs. He was noted to have paroxysmal atrial fibrillation in the ER and was started on Eliquis for anticoagulation. Cardiology was consulted as well and echo was obtained which revealed preserved EF. He was previously on aspirin and Plavix for CAD s/p stent placement in remote history. Due to new addition of Elqiuis his Plavix was discontinued. I called and discussed this with his primary care provider Eva Pedraza APRN and with his aerophysicist Dr Triplett who will see him in follow up. Labs (last 24 hrs) Laboratory Tests 08/13/18 05:05: White Blood Count 7.3, Red Blood Count 4.08L, Hemoglobin 12.6L, Hematocrit 37L, Mean Corpuscular Volume 90, Mean Corpuscular Hemoglobin 31, Mean Corpuscular Hemoglobin Concent 34, Red Cell Distribution Width 15.7H, Platelet Count 129L, Mean Platelet Volume 10.7H, Neutrophils (%) (Auto) 71, Lymphocytes (%) (Auto) 16 , Monocytes (%) (Auto) 12, Eosinophils (%) (Auto) 1, Basophils (%) (Auto) 0, Neutrophils # (Auto) 5.2, Lymphocytes # (Auto) 1.2, Monocytes # (Auto) 0.9, Eosinophils # (Auto) 0.0, Basophils # (Auto) 0.0, Sodium Level 134L, Potassium Level 4.2, Chloride Level 109H, Carbon Dioxide Level 17L, Anion Gap 8, Blood Urea Nitrogen 13, Creatinine 0.78, Estimat Glomerular Filtration Rate > 60, BUN/ Creatinine Ratio 17, Glucose Level 84, Calcium Level 8.2L, Corrected Calcium 8.6 , Magnesium Level 2.0, Total Bilirubin 0.9, Aspartate Amino Transf (AST/SGOT) 23 , Alanine Aminotransferase (ALT/SGPT) 17, Alkaline Phosphatase 80, Total Protein 5.7L, Albumin 3.5 Microbiology 08/11/18 Blood Culture - Preliminary, Resulted No growth 08/12/18 C. difficile GDH Antigen & Toxins - Final, Complete 08/11/18 Urine Culture - Final, Complete See Report Patient resulted labs reviewed. Discharge Home Medications: Active Scripts Active Eliquis (Apixaban) 5 Mg Tablet 5 Mg PO BID Reported Fish Oil 1,000 mg Softgel ([place]-3/Dha/Epa/Fish Oil) 1 Each Capsule 1 Each PO DAILY Losartan Potassium 100 Mg Tablet 100 Mg PO DAILY Clopidogrel (Clopidogrel Bisulfate) 75 Mg Tablet 75 Mg PO DAILY Aspir 81 (Aspirin) 81 Mg Tablet.dr 81 Mg PO DAILY Atorvastatin Calcium 40 Mg Tablet 40 Mg PO HS Amlodipine Besylate 10 Mg Tablet 10 Mg PO DAILY Metoprolol Succinate 100 Mg Tab.er.24h 100 Mg PO DAILY Instructions to patient/family Please see electronic discharge instructions given to patient. Clinical Quality Measures DVT/VTE Risk/Contraindication: Risk Factor Score Per Nursin RFS Level Per Nursing on Admit: 3=High SUNITA SHEETS MD Aug 13, 2018 15:11
[2018-08-13] MEDS: LOSARTAN 50 MG (COZAAR) TAB PO SCH (15:57)
[2018-08-13] MEDS: APIXABAN 5 MG (ELIQUIS) TABLET PO SCH (15:57)
[2018-08-13 17:00] VITALS: BP 162/72
== END 2018-08-13 13:31 | disposition home or self-care (01) ==
LOC: EDUNIT# 04:39 → ER 04:40 → 4TH 06:00 → UNDOADMOB 06:00 → 4TH 06:40
PROVIDERS: ADMIT Internal Medicine; ATTEND Internal Medicine
DX: A08.4 Viral intestinal infection, unspecified (principal); I48.0 Paroxysmal atrial fibrillation; E83.42 Hypomagnesemia; E86.0 Dehydration; I08.3 Combined rheumatic disorders of mitral, aortic and tricuspid valves; I25.10 Atherosclerotic heart disease of native coronary artery without angina pectoris; I27.20 Pulmonary hypertension, unspecified; I65.23 Occlusion and stenosis of bilateral carotid arteries; I10 Essential (primary) hypertension; E78.00 Pure hypercholesterolemia, unspecified; M19.91 Primary osteoarthritis, unspecified site; Z79.02 Long term (current) use of antithrombotics/antiplatelets; Z79.82 Long term (current) use of aspirin; Z79.899 Other long term (current) drug therapy; Z95.5 Presence of coronary angioplasty implant and graft; Z87.891 Personal history of nicotine dependence
CPT/HCPCS: 36415; 71045; 74019; 74176; 80053; 81000; 83605; 83735; 84484; 85025; 85610; 85730; 87040; 87088; 87324; 87449; 93005; 93306; 96361; 96374; G0378

== ENCOUNTER 2018-09-02 12:06 | Emergency (ER) | payer MEDICARE ==
[~2018-09-02] VITALS: Ht 165.1 cm; Wt 68.0 kg
[~2018-09-02 12:06] MED LIST changes: +APIX5TAB PO; +LOSA100T8; +LOSA100T8 PO; +OMEG-160 PO
[2018-09-02] MEDS ORDERED: ASPIRIN 81 MG CHEW (CHILDREN'S ASA) PO ONE (12:30)
--- NOTE | 2018-09-02 12:33 | ED GI ---
General Chief Complaint: Abdominal/GI Problems Stated Complaint: VOMITING/STOMACH PAIN Nursing Triage Note: ABD PAIN ALONG WITH N/V STARTING THIS AM. Sepsis Screen: No Definite Risk Source of Information: Patient, Family (brother) Exam Limitations: No Limitations History of Present Illness Date Seen by Provider: Sep 02, 2018 Time Seen by Provider: 12:16 Initial Comments The patient presents to ER by private conveyance with chief complaint of just this morning started having some abdominal pain around his umbilicus and nausea and vomiting. No sick contacts. No diarrhea, fevers chills, chest pain shortness of breath or cough. He does have a history of coronary artery disease status post stent. He is on Eliquis. Triage nurse noted he had a very slow heart rate in the 40s and 50s at first. The patient denies any dysuria, discharge or diarrhea. Allergies and Home Medications Allergies Coded Allergies: Iodinated Contrast- Oral and IV Dye (Verified Allergy, Unknown, 11/09/06) Home Medications Amlodipine Besylate 10 Mg Tablet, 10 MG PO DAILY, (Reported) Apixaban 5 Mg Tablet, 5 MG PO BID Prescribed by: SUNITA SHEETS on 08/13/18 1322 Aspirin 81 Mg Tablet.dr, 81 MG PO DAILY, (Reported) Losartan Potassium 100 Mg Tablet, 100 MG PO DAILY, (Reported) Metoprolol Succinate 100 Mg Tab.er.24h, 100 MG PO DAILY, (Reported) [place]-3/Dha/Epa/Fish Oil 1 Each Capsule, 1 EACH PO DAILY, (Reported) Patient Home Medication List Home Medication List Reviewed: Yes Review of Systems Review of Systems Constitutional: No chills, No fever EENTM: No Blurred Vision, No Double Vision Respiratory: Denies Cough, Denies Shortness of Air Cardiovascular: Denies Chest Pain, Denies Edema, Denies Lightheadedness Gastrointestinal: See HPI; Denies Abdomen Distended; Abdominal Pain; Denies Constipated, Denies Diarrhea; Nausea, Vomiting Genitourinary: Denies Burning, Denies Discharge Musculoskeletal: No back pain, No joint pain Skin: No pruritus, No rash Psychiatric/Neurological: Denies Headache, Denies Numbness, Denies Paresthesia Past Lvojqux-Jskvlm-Xiuwao Hx Patient Social History Alcohol Use: Denies Use Recreational Drug Use: No Smoking Status: Never a Smoker Type Used: Cigarettes Former Smoker, Quit: Feb 25, 1950 2nd Hand Smoke Exposure: No Recent Foreign Travel: No Contact w/Someone Who Travel: No Recent Infectious Disease Expo: No Recent Hopitalizations: No Immunizations Up To Date Tetanus Booster (TDap): Less than 5yrs Date of Pneumonia Vaccine: Jul 10, 2011 Date of Influenza Vaccine: May 28, 2018 Seasonal Allergies Seasonal Allergies: No Past Medical History Surgeries: Yes (HERNIA X2, STENT IN HEART 2003, g GB REMOVED) Coronary Stent Respiratory: No Cardiac: Yes (STENT) Coronary Artery Disease, High Cholesterol, Hypertension Neurological: No Reproductive Disorders: No Sexually Transmitted Disease: No HIV/AIDS: No Genitourinary: No Gastrointestinal: Yes Hiatal Hernia Musculoskeletal: Yes (LEFT FOOT PAIN) Arthritis Endocrine: No Cataract Hearing Impairment: Hard of Hearing Cancer: No Psychosocial: No Integumentary: No Blood Disorders: No Adverse Reaction/Blood Tranf: No Family Medical History CANCER G8 BROTHER FH: cancer No Pertinent Family Hx Physical Exam Vital Signs Vital Signs - First Documented 09/02/18 12:12 Temp 97.2 Pulse 65 Resp 16 B/P (MAP) 131/65 (87) Capillary Refill : Less Than 3 Seconds Height/Weight/BMI Height: 5'5.00" Weight: 150lbs. 6.0oz. 68.774112yg; 23.03 BMI Method:Stated General Appearance: WD/WN, no apparent distress HEENT: PERRL/EOMI, pharynx normal Neck: non-tender, full range of motion Respiratory: chest non-tender, lungs clear, normal breath sounds, no respiratory distress, no accessory muscle use Cardiovascular: normal peripheral pulses, regular rate, rhythm, no edema, no JVD Peripheral Pulses: 2+ Dorsalis Pedis (R), 2+ Left Dors-Pedis (L) Gastrointestinal: normal bowel sounds, soft, tenderness (mild tenderness in the epigastric region) Procedures/Interventions Suture Size: 5-0 Progress/Results/Core Measures Results/Orders Lab Results Laboratory Tests Test 09/02/18 12:21 09/02/18 12:45 09/02/18 14:10 Range/Units White Blood Count 10.0 4.3-11.0 10^3/uL Red Blood Count 4.43 4.35-5.85 10^6/uL Hemoglobin 13.8 13.3-17.7 G/DL Hematocrit 39 L 40-54 % Mean Corpuscular Volume 89 80-99 FL Mean Corpuscular Hemoglobin 31 25-34 PG Mean Corpuscular Hemoglobin Concent 35 32-36 G/DL Red Cell Distribution Width 15.6 H 10.0-14.5 % Platelet Count 200 130-400 10^3/uL Mean Platelet Volume 10.3 7.4-10.4 FL Neutrophils (%) (Auto) 71 42-75 % Lymphocytes (%) (Auto) 20 12-44 % Monocytes (%) (Auto) 8 0-12 % Eosinophils (%) (Auto) 1 0-10 % Basophils (%) (Auto) 0 0-10 % Neutrophils # (Auto) 7.1 1.8-7.8 X 10^3 Lymphocytes # (Auto) 2.0 1.0-4.0 X 10^3 Monocytes # (Auto) 0.8 0.0-1.0 X 10^3 Eosinophils # (Auto) 0.1 0.0-0.3 10^3/uL Basophils # (Auto) 0.0 0.0-0.1 10^3/uL Prothrombin Time 13.4 12.2-14.7 SEC INR Comment 1.0 0.8-1.4 Activated Partial Thromboplast Time 33 24-35 SEC Sodium Level 140 135-145 MMOL/L Potassium Level 4.2 3.6-5.0 MMOL/L Chloride Level 105 98-107 MMOL/L Carbon Dioxide Level 24 21-32 MMOL/L Anion Gap 11 5-14 MMOL/L Blood Urea Nitrogen 16 7-18 MG/DL Creatinine 1.13 0.60-1.30 MG/DL Estimat Glomerular Filtration Rate > 60 BUN/Creatinine Ratio 14 Glucose Level 119 H 70-105 MG/DL Calcium Level 9.8 8.5-10.1 MG/DL Corrected Calcium 9.6 8.5-10.1 MG/DL Magnesium Level 1.9 1.8-2.4 MG/DL Total Bilirubin 0.9 0.1-1.0 MG/DL Aspartate Amino Transf (AST/SGOT) 21 5-34 U/L Alanine Aminotransferase (ALT/SGPT) 20 0-55 U/L Alkaline Phosphatase 107 40-136 U/L Myoglobin 47.3 10.0-92.0 NG/ML Troponin I < 0.028 < 0.028 <0.028 NG/ML Total Protein 7.0 6.4-8.2 GM/DL Albumin 4.3 3.2-4.5 GM/DL Lipase 13 8-78 U/L Urine Color YELLOW Urine Clarity SLIGHTLY CLOUDY Urine pH 5 5-9 Urine Specific [place] 1.020 1.016-1.022 Urine Protein 1+ H NEGATIVE Urine Glucose (UA) NEGATIVE NEGATIVE Urine Ketones NEGATIVE NEGATIVE Urine Nitrite NEGATIVE NEGATIVE Urine Bilirubin NEGATIVE NEGATIVE Urine Urobilinogen NORMAL NORMAL MG/DL Urine Leukocyte Esterase NEGATIVE NEGATIVE Urine RBC (Auto) NEGATIVE NEGATIVE Urine RBC 0 /HPF Urine WBC 0-2 /HPF Urine Crystals NONE /LPF Urine Bacteria MODERATE H /HPF Urine Casts NONE /LPF Urine Mucus MODERATE H /LPF Urine Culture Indicated NO My Orders Orders - ALEXEI GALEAS Cbc With Automated Diff (09/02/18 12:23) Magnesium (09/02/18 12:23) Chest 1 View, Ap/Pa Only (09/02/18 12:23) Ekg Tracing (09/02/18 12:23) Cardiac Profile 1 (09/02/18 12:23) Comprehensive Metabolic Panel (09/02/18 12:23) Myoglobin Serum (09/02/18 12:23) Protime With Inr (09/02/18 12:23) Partial Thromboplastin Time (09/02/18 12:23) O2 (09/02/18 12:23) Monitor-Rhythm Ecg Trace Only (09/02/18 12:23) Aspirin Chewable Tablet (Baby Aspirin Ch (09/02/18 12:30) Saline Lock/Iv-Start (09/02/18 12:23) Lipase (09/02/18 12:23) Ua Culture If Indicated (09/02/18 12:23) Ekg Tracing (09/02/18 13:14) Troponin I (09/02/18 14:20) Medications Given in ED Current Medications Medications Dose Ordered Sig/Benji Route Start Time Stop Time Status Last Admin Dose Admin Aspirin 324 mg ONCE ONCE PO 09/02/18 12:30 09/02/18 12:31 DC 09/02/18 12:32 324 MG Vital Signs/I&O 09/02/18 12:12 Temp 97.2 Pulse 65 Resp 16 B/P (MAP) 131/65 (87) Blood Pressure Mean: 87 Progress Progress Note : Time: 12:28 Progress Note Certainly a viral gastroenteritis could be the cause but given the fact that he is 83 years old with a significant history of coronary artery disease peptic be concerned about an atypical anginal presentation and obtain an EKG troponins and give him some aspirin. He is not having any pain at this moment sorted hold off on nitroglycerin. He says he has no nausea right now so we'll not be giving him any nausea medicine just yet. His heart rate is sinus, irregular but the rest of his vital signs are aseptic. We'll check some urine in addition to our labs to include lipase. History of paroxysmal atrial fibrillation on Eliquis. History of frequent premature atrial contractions, atrial bigeminy. Echocardiogram from 1 month ago showed normal left ventricular size and atrial size. Mild mitral regurgitation and aortic stenosis. Stent to the marginal branch 2004 with no intervention since. Last cardiac catheterization was 2009 showing 80% ostial diagonal's artery stenosis very small artery not amenable to intervention. Had gastroenteritis last month. Plan to do a two-hour delta troponin. Initial ECG Impression Date: Sep 02, 2018 Initial ECG Impression Time: 12:19 Initial ECG Rate: 69 Initial ECG Rhythm: Normal Sinus Initial ECG Intervals: QT (472) Initial ECG Impression: Normal, Nonspecific Changes EKG : EKG Time: 13:23 Rate: 73 Rhythm: Normal Sinus Intervals: Normal ECG Comparisson: Unchanged ECG Impression: Nonspecific Changes Comment Emergency P waves before the QRS complexes. It is an irregular sinus rhythm. No ST-T segment elevation or depression. Diagnostic Imaging Diagonstic Imaging: Xray Plain Films/CT/US/NM/MRI: chest (1v) Comments NAME: MARLEEN RODRIGEZ [facility] REC#: [id number] PT STATUS: REG ER : 1935 PHYSICIAN: ALEXEI GALEAS MD ADMIT DATE: 09/02/18/ER Draft Date of Exam:09/02/18 CHEST 1 VIEW, AP/PA ONLY EXAMINATION: AP upright portable chest. INDICATION: Irregular heart rate. COMPARISON: Multiple priors, most recent performed on 08/12/2018. FINDINGS: The lungs are clear, and the pulmonary vasculature is normal. No pneumothorax or significant pleural effusion. The cardiomediastinal silhouette is unchanged. No acute osseous abnormality. There is marked decrease in the right acromiohumeral distance, likely reflecting chronic rotator cuff pathology. IMPRESSION: No acute chest disease. No significant change from prior. Dictated on workstation # [id number] Dict: 09/02/18 1240 Trans: 09/02/18 1251 [id number] Interpreted by: APRIL MOREL DO Electronically signed by: Reviewed: Reviewed by Me Departure Impression Primary Impression: Nausea and vomiting Qualified Codes: R11.2 - Nausea with vomiting, unspecified Additional Impression: Epigastric abdominal pain of unknown etiology Disposition: HOME, SELF-CARE Condition: Stable Departure-Patient Inst. Decision time for Depature: 15:34 Referrals: NO,LOCAL PHYSICIAN (PCP/Family) Primary Care Physician Patient Instructions: Gastritis (DC) Add. Discharge Instructions: You have any nausea you can take one tablet of Zofran every 6 hours as needed. Allow it to absorb on the tongue. Follow-up with primary care next week. All discharge instructions reviewed with patient and/or family. Voiced understanding. Scripts Ondansetron (Ondansetron Odt) 4 Mg Tab.rapdis 4 MG PO Q6H PRN for NAUSEA/VOMITING, #8 TAB 0 Refills Prov: ALEXEI GALEAS 09/02/18 ALEXEI GALEAS Sep 02, 2018 12:32
[2018-09-02 12:35] LABS: BASOPHILS % (AUTO) 0 % (0-10); EOSINOPHILS # (AUTO) 0.1 10^3/uL (0.0-0.3); EOSINOPHILS % (AUTO) 1 % (0-10); HEMATOCRIT 39 % (40-54); HEMOGLOBIN 13.8 G/DL (13.3-17.7); LYMPHOCYTES % (AUTO) 20 % (12-44); MEAN CORPUSCULAR HEMOGLOBIN 31 PG (25-34); MEAN CORPUSCULAR HGB CONC 35 G/DL (32-36); MEAN CORPUSCULAR VOLUME 89 FL (80-99); MEAN PLATELET VOLUME 10.3 FL (7.4-10.4); MONOCYTES # (AUTO) 0.8 X 10^3 (0.0-1.0); MONOCYTES % (AUTO) 8 % (0-12); NEUTROPHILS # (AUTO) 7.1 X 10^3 (1.8-7.8); NEUTROPHILS % (AUTO) 71 % (42-75); PLATELET COUNT 200 10^3/uL (130-400); RED BLOOD COUNT 4.43 10^6/uL (4.35-5.85); RED CELL DISTRIBUTION WIDTH 15.6 % (10.0-14.5)
[2018-09-02 12:44] LABS: PROTHROMBIN TIME PATIENT 13.4 SEC (12.2-14.7)
[2018-09-02 12:52] LABS: ALANINE AMINOTRANSFERASE 20 U/L (0-55); ALBUMIN 4.3 GM/DL (3.2-4.5); ALKALINE PHOSPHATASE 107 U/L (40-136); BILIRUBIN,TOTAL 0.9 MG/DL (0.1-1.0); BUN/CREATININE RATIO 14; CALCIUM 9.8 MG/DL (8.5-10.1); CARBON DIOXIDE 24 MMOL/L (21-32); CHLORIDE 105 MMOL/L (98-107); CREATININE SERUM 1.13 MG/DL (0.60-1.30); GFR ESTIMATED > 60; GLUCOSE 119 MG/DL (70-105); LIPASE 13 U/L (8-78); MAGNESIUM 1.9 MG/DL (1.8-2.4); POTASSIUM 4.2 MMOL/L (3.6-5.0); SODIUM 140 MMOL/L (135-145)
--- NOTE | 2018-09-02 12:52 | Diagnostic Imaging Report ---
EXAMINATION: AP upright portable chest. INDICATION: Irregular heart rate. COMPARISON: Multiple priors, most recent performed on 08/12/2018. FINDINGS: The lungs are clear, and the pulmonary vasculature is normal. No pneumothorax or significant pleural effusion. The cardiomediastinal silhouette is unchanged. No acute osseous abnormality. There is marked decrease in the right acromiohumeral distance, likely reflecting chronic rotator cuff pathology. IMPRESSION: No acute chest disease. No significant change from prior. Dictated by: Dictated on workstation # [id number]
[2018-09-02 12:54] LABS: BILIRUBIN,URINE NEGATIVE (NEGATIVE); CLARITY,URINE SLIGHTLY CLOUDY; COLOR,URINE YELLOW; GLUCOSE, URINE (UA) NEGATIVE (NEGATIVE); KETONES,URINE NEGATIVE (NEGATIVE); LEUKOCYTE ESTERASE ,URINE NEGATIVE (NEGATIVE); NITRITE,URINE NEGATIVE (NEGATIVE); PH,URINE 5 (5-9); PROTEIN,URINE 1+ (NEGATIVE); UROBILINOGEN,URINE NORMAL (NORMAL)
[2018-09-02 12:58] LABS: MYOGLOBIN SERUM 47.3 NG/ML (10.0-92.0)
[2018-09-02 13:01] LABS: BACTERIA,URINE MODERATE /HPF; RBC,URINE 0 /HPF; WBC,URINE 0-2 /HPF
[2018-09-02] MEDS ORDERED: ONDA4TAB11 PO (15:35)
[2018-09-02 15:45] VITALS: BP 158/91
[2018-09-02] MEDS ORDERED: ONDANSETRON 4 MG (ZOFRAN) ORAL DISSOLVE TAB PO ONE (15:45)
== END 2018-09-02 15:43 | disposition home or self-care (01) ==
LOC: EDUNIT# 12:06 → ER 12:08
DX: R11.2 Nausea with vomiting, unspecified (principal); R10.13 Epigastric pain; I25.10 Atherosclerotic heart disease of native coronary artery without angina pectoris; I10 Essential (primary) hypertension; E78.00 Pure hypercholesterolemia, unspecified; Z87.19 Personal history of other diseases of the digestive system; Z95.5 Presence of coronary angioplasty implant and graft; Z91.041 Radiographic dye allergy status; Z79.01 Long term (current) use of anticoagulants; Z79.82 Long term (current) use of aspirin; Z87.891 Personal history of nicotine dependence
CPT/HCPCS: 36415; 71045; 80053; 81000; 83690; 83735; 83874; 84484; 85025; 85610; 85730; 93005; 93041

== ENCOUNTER 2018-11-19 09:16 | Outpatient (RCR) | payer MEDICARE ==
[~2018-11-19 09:16] MED LIST changes: -AMLO10TA6 PO; +AMLO10TA7 PO; +LOSA100T57; +LOSA100T57 PO; -LOSA100T8; -LOSA100T8 PO; +ONDA4TAB11 PO
[2018-12-15] MEDS ORDERED: LIDOCAINE 1% INJ 20 ML 20 ML VIAL ONE (14:21)
[2018-12-15] MEDS ORDERED: MIDAZOLAM 5 MG/5 ML (VERSED) VIAL ONE (14:21)
[2018-12-15] MEDS ORDERED: fentaNYL INJECTION 100 MCG/2 ML AMP ONE (14:21)
[2018-12-15] MEDS ORDERED: HEParin 1000 UNIT/ML (10ML VIAL) FOR BOLUS ONE (14:22)
[2018-12-15] MEDS ORDERED: NS IV 1000 ML 2,000 ML ONE (14:22)
== END 2019-02-17 | disposition home or self-care (01) ==
LOC: CARD 09:16
PROVIDERS: ATTEND Internal Medicine Cardiovascular Disease
DX: R00.1 Bradycardia, unspecified (principal); I48.0 Paroxysmal atrial fibrillation

== ENCOUNTER 2019-07-23 10:47 | Emergency (ER) | payer MEDICARE ==
[~2019-07-23] VITALS: Ht 162 cm; Wt 63.9 kg
--- NOTE | 2019-07-23 11:25 | ED Upper Extremity ---
General Chief Complaint: Upper Extremity Stated Complaint: R ARM INJ Nursing Triage Note: pt presents to ed with complaints of r arm/shoulder weakness, pain, and numbness starting at 0200 this am. pt reports he was lifting and moving furniture yesterday and thinks he may have injured it. Nursing Sepsis Screen: No Definite Risk Source: patient Exam Limitations: no limitations History of Present Illness Date Seen by Provider: Jul 23, 2019 Time Seen by Provider: 11:15 Initial Comments 84 year old patient comes to the ER reporting right shoulder pain. The patient reports that yesterday morning he moved some metal cabinets and as the day progressed he experienced right shoulder pain. He denies any injury to the right arm. This morning he is experiencing 9/10 right arm pain and limited movement. He has not taken any Tylenol or NSAIDs for the pain. Onset: yesterday Pain/Injury Location: right shoulder, right arm Method of Injury: other (Excessive movement/activity) Modifying Factors: Improves With Movement Associated Symptoms: Denies any finger tingling, very limited range of motion, decreased strengt Allergies and Home Medications Allergies Coded Allergies: Iodinated Contrast- Oral and IV Dye (Verified Allergy, Unknown, 11/09/06) Home Medications Amlodipine Besylate 10 Mg Tablet, 10 MG PO DAILY, (Reported) Apixaban 5 Mg Tablet, 5 MG PO BID Prescribed by: SUNITA SHEETS on 08/13/18 1322 Aspirin 81 Mg Tablet.dr, 81 MG PO DAILY, (Reported) Losartan Potassium 100 Mg Tablet, 100 MG PO DAILY, (Reported) Metoprolol Succinate 100 Mg Tab.er.24h, 100 MG PO DAILY, (Reported) [place]-3/Dha/Epa/Fish Oil 1 Each Capsule, 1 EACH PO DAILY, (Reported) Ondansetron 4 Mg Tab.rapdis, 4 MG PO Q6H PRN for NAUSEA/VOMITING Prescribed by: ALEXEI GALEAS on 09/02/18 1535 Patient Home Medication List Home Medication List Reviewed: Yes Review of Systems Constitutional: no symptoms reported, see HPI Musculoskeletal: see HPI, joint pain (right shoulder pain) All Other Systems Reviewed Negative Unless Noted: Yes Past Tgnlzur-Xcsxrl-Vangzv Hx Past Med/Social Hx: Reviewed Nursing Past Med/Soc Hx Patient Social History Alcohol Use: Denies Use Recreational Drug Use: No Smoking Status: Former Smoker Type Used: Cigarettes Former Smoker, Quit: Feb 25, 1950 2nd Hand Smoke Exposure: No Recent Foreign Travel: No Contact w/Someone Who Travel: No Recent Infectious Disease Expo: No Recent Hopitalizations: No Physical Abuse: No Sexual Abuse: No Mistreated: No Fear: No Immunizations Up To Date Tetanus Booster (TDap): Less than 5yrs Date of Pneumonia Vaccine: Jul 10, 2011 Date of Influenza Vaccine: May 28, 2018 Seasonal Allergies Seasonal Allergies: No Past Medical History Surgeries: Yes (HERNIA X2, STENT IN HEART 2003, g GB REMOVED, cleft lip) Coronary Stent, Gallbladder Respiratory: No Cardiac: Yes (STENT) Coronary Artery Disease, High Cholesterol, Hypertension Neurological: No Reproductive Disorders: No Sexually Transmitted Disease: No HIV/AIDS: No Genitourinary: No Gastrointestinal: Yes Hiatal Hernia Musculoskeletal: Yes (LEFT FOOT PAIN) Arthritis Endocrine: No Cataract Hearing Impairment: Hard of Hearing Cancer: No Psychosocial: No Integumentary: No Blood Disorders: No Adverse Reaction/Blood Tranf: No Family Medical History CANCER G8 BROTHER FH: cancer No Pertinent Family Hx Physical Exam Vital Signs Vital Signs - First Documented 07/23/19 11:09 Temp 36.6 Pulse 65 Resp 16 B/P (MAP) 167/76 (106) Pulse Ox 99 Capillary Refill : Less Than 3 Seconds Height, Weight, BMI Height: 5'5.00" Weight: 150lbs. 6.0oz. 68.525804lt; 24.00 BMI Method:Stated General Appearance: WD/WN, no apparent distress Cardiovascular: normal peripheral pulses, regular rate, rhythm Respiratory: chest non-tender, lungs clear, normal breath sounds Shoulder: limited ROM (limitation of anterior elevation to 90, external rotation and internal rotation full ROM. Weakness Ext Rotators IV-/V, Biceps and triceps V/V. ), pain (anterior right shoulder) Elbow/Forearm: normal ROM, Right Hand: normal inspection, non-tender, normal ROM, Right Neurologic/Psychiatric: no motor/sensory deficits, alert, normal mood/affect, oriented x 3 Skin: normal color, warm/dry Procedures/Interventions Suture Size: 5-0 Progress/Results/Core Measures Results/Orders My Orders Orders - KINGSLEY BHAKTA Shoulder, Right, 3 Views (07/23/19 11:29) Ibuprofen Tablet (Motrin Tablet) (07/23/19 11:30) Medications Given in ED Current Medications Medications Dose Ordered Sig/Benji Route Start Time Stop Time Status Last Admin Dose Admin Ibuprofen 600 mg ONCE ONCE PO 07/23/19 11:30 07/23/19 11:31 DC 07/23/19 11:48 600 MG Vital Signs/I&O 07/23/19 07/23/19 11:09 12:18 Temp 36.6 Pulse 65 84 Resp 16 18 B/P (MAP) 167/76 (106) 136/71 Pulse Ox 99 98 Blood Pressure Mean: 106 POS Diagnostic Imaging Diagonstic Imaging: Xray Plain Films/CT/US/NM/MRI: other (shoulder) Comments [place], [place] POS NAME: MARLEEN RODRIGEZ [facility] REC#: [id number] PT STATUS: REG ER : 1935 PHYSICIAN: KINGSLEY BHAKTA ADMIT DATE: 07/23/19/ER Draft POSDate of Exam:07/23/19 SHOULDER, RIGHT, 3 VIEWS PATIENT HISTORY: Right arm shoulder pain, weakness and numbness. TECHNIQUE: Three views of the right shoulder. COMPARISON: None. FINDINGS: No acute fracture or dislocation is seen in the right shoulder. Alignment appears normal. There are mild degenerative changes in the right acromioclavicular joint and moderate in the glenohumeral joint. There is complete loss of the acromiohumeral interval with mild remodeling of the acromion undersurface. IMPRESSION: 1. Degenerative changes in the right shoulder with no acute fracture seen. 2. Chronic right rotator cuff injury. Dictated on workstation # [id number] Dict: 07/23/19 1159 Trans: 07/23/19 1202 [id number] Interpreted by: ISAIAS CRAWLEY MD Electronically signed by: Reviewed: Reviewed by Me Departure Impression Primary Impression: Right shoulder pain Qualified Codes: M25.511 - Pain in right shoulder Additional Impression: Rotator cuff tear Qualified Codes: S46.011A - Strain of muscle(s) and tendon(s) of the rotator cuff of right shoulder, initial encounter Disposition: 01 HOME, SELF-CARE Condition: Improved Departure-Patient Inst. Decision time for Depature: 12:00 Referrals: NO,LOCAL PHYSICIAN (PCP/Family) Primary Care Physician Patient Instructions: Rotator Cuff Injury (DC), Shoulder Pain (DC) Add. Discharge Instructions: Ice to right shoulder 20 minutes every 2 hours while awake. Alternate between ibuprofen 600 mg and Tylenol 650 mg every 4 hours for pain. Gentle range of motion to the right shoulder to avoid stiffness. Follow-up with your primary care provider for orthopedic referral. Return to the emergency department for new, urgent health care needs. All discharge instructions reviewed with patient and/or family. Voiced understanding. Exam-Cardiology Vital Signs Vital Signs Date Time Temp Pulse Resp B/P (MAP) Pulse Ox O2 Delivery O2 Flow Rate FiO2 07/23/19 12:18 84 18 136/71 98 07/23/19 11:09 36.6 Exam General Appearance: Alert, Oriented X3, Cooperative, No Acute Distress Respiratory: Clear to Auscultation, Normal Air Movement Cardiovascular: Regular Rate, Normal S1, Normal S2 Abdominal: Normal Bowel Sounds, Soft, No Tenderness Extremities: No Clubbing, No Cyanosis, No Edema, Normal Pulses Skin: No Significant Lesion Psych/Mental Status: Mental Status NL Exam Exam Vital Signs Date Time Temp Pulse Resp B/P (MAP) Pulse Ox O2 Delivery O2 Flow Rate FiO2 07/23/19 12:18 84 18 136/71 98 07/23/19 11:09 36.6 65 16 167/76 (106) 99 Height & Weight Height: 5'5.00" Weight: 150lbs. 6.0oz. 68.172191wq; 24.00 BMI Method:Stated General Appearance: No Apparent Distress, WD/WN Capillary Refill: Less Than 3 Seconds KINGSLEY BHAKTA Jul 23, 2019 11:25 POS
[2019-07-23] MEDS ORDERED: IBUPROFEN 600 MG (MOTRIN) TAB PO ONE (11:30)
--- NOTE | 2019-07-23 12:03 | Diagnostic Imaging Report ---
PATIENT HISTORY: Right arm shoulder pain, weakness and numbness. TECHNIQUE: Three views of the right shoulder. COMPARISON: None. FINDINGS: No acute fracture or dislocation is seen in the right shoulder. Alignment appears normal. There are mild degenerative changes in the right acromioclavicular joint and moderate in the glenohumeral joint. There is complete loss of the acromiohumeral interval with mild remodeling of the acromion undersurface. IMPRESSION: 1. Degenerative changes in the right shoulder with no acute fracture seen. 2. Chronic right rotator cuff injury. Dictated by: Dictated on workstation # [id number]
[2019-07-23 12:18] VITALS: BP 136/71
== END 2019-07-23 12:18 | disposition home or self-care (01) ==
LOC: EDUNIT# 10:47 → ER 10:48
DX: S46.011A Strain of muscle(s) and tendon(s) of the rotator cuff of right shoulder, initial encounter (principal); I10 Essential (primary) hypertension; E78.00 Pure hypercholesterolemia, unspecified; I25.10 Atherosclerotic heart disease of native coronary artery without angina pectoris; Z91.041 Radiographic dye allergy status; Z79.01 Long term (current) use of anticoagulants; Z79.82 Long term (current) use of aspirin; Z87.891 Personal history of nicotine dependence; Z95.5 Presence of coronary angioplasty implant and graft; X50.0XXA Overexertion from strenuous movement or load, initial encounter
CPT/HCPCS: 73030

== ENCOUNTER → 2019-09-30 | Outpatient (CLI) | payer MEDICARE ==
[~2019-09-30] VITALS: Ht 157 cm; Wt 65.0 kg
[~2019-09-30] MED LIST changes: +CATHETER FLUSH 10 ML SYR IV PRN; -METO-395 PO; +MTP100TCR PO; +REGADENOSON 0.4 MG/5 ML SYR (LEXISCAN) IV ONE
[2019-09-30 08:43] VITALS: BP 170/68
[2019-09-30 08:49] VITALS: BP 147/64
--- NOTE | 2019-09-30 11:40 | STRESS TEST ---
DATE OF SERVICE: 09/30/2019 LEXISCAN MYOVIEW STRESS TEST REPORT Baseline heart rate is 55. Baseline blood pressure 170/68. Baseline EKG is sinus rhythm with right bundle branch block and occasional APCs. In summary, the patient received 10.43 mCi of technetium-99 Myoview and the resting images were obtained. Then, the patient received 0.4 mg of Lexiscan followed by 10.43 mCi of technetium-99 Myoview, then received 0.4 mg of Lexiscan followed by 32.6 mCi of technetium-99 Myoview. Throughout the test, there were no EKG changes. The resting and stress images were reviewed and compared in the short axis, horizontal long axis, and vertical long axis views. Review of the images showed diaphragmatic attenuation with typical male pattern, mild decreased uptake at the mid to apical inferolateral wall with no significant ischemia or infarction. SSS is 3, SDS is 3, TID value 1.09. On the gated images, the left ventricle appeared to be in normal size with normal contractility. Calculated ejection fraction is 63%. CONCLUSION: 1. The patient tolerated the Lexiscan well. 2. Diaphragmatic attenuation with typical male pattern with no significant ischemia or infarction on SPECT images. 3. Normal left ventricular size with normal contractility. Calculated ejection fraction is 63%. Job ID: [id number] DocumentID: [id number] Dictated Date: 09/30/2019 11:06:06 Tactical Response Group Officer Date: 09/30/2019 11:40:11 Dictated By: JOSE RUSH MD
== END ==
LOC: CARD 07:22
PROVIDERS: ATTEND Physician Assistant
DX: I25.10 Atherosclerotic heart disease of native coronary artery without angina pectoris (principal); I65.29 Occlusion and stenosis of unspecified carotid artery; I10 Essential (primary) hypertension; I35.1 Nonrheumatic aortic (valve) insufficiency
CPT/HCPCS: 78452; 93017

== ENCOUNTER → 2019-10-02 | Outpatient (CLI) | payer MEDICARE ==
[~2019-10-02] MED LIST changes: -CATHETER FLUSH 10 ML SYR IV PRN; -REGADENOSON 0.4 MG/5 ML SYR (LEXISCAN) IV ONE
== END ==
LOC: CARD 12:19
PROVIDERS: ATTEND Physician Assistant
DX: I25.10 Atherosclerotic heart disease of native coronary artery without angina pectoris (principal); I65.29 Occlusion and stenosis of unspecified carotid artery; I10 Essential (primary) hypertension; I35.1 Nonrheumatic aortic (valve) insufficiency; I08.3 Combined rheumatic disorders of mitral, aortic and tricuspid valves
CPT/HCPCS: 93306

== ENCOUNTER 2020-01-18 04:40 | Emergency (ER) | payer MEDICARE ==
[~2020-01-18] VITALS: Ht 165 cm; Wt 67.9 kg
[2020-01-18] MEDS ORDERED: fentaNYL INJECTION 100 MCG/2 ML AMP IVP STA (04:49)
--- NOTE | 2020-01-18 04:54 | ED Lower Extremity ---
General Chief Complaint: Trauma-Non Activation Stated Complaint: FALL Source: patient Exam Limitations: no limitations History of Present Illness Date Seen by Provider: January 18, 2020 Time Seen by Provider: 04:46 Initial Comments Here with report of right knee injury that occurred yesterday at about 10 AM. He slipped and fell forward and hit his knee on a concrete block. Denies hitting his head or other injury. Denies loss of consciousness. Pain in his knee became worse throughout the day. He took about 3 Aleve tablets around 4:30 PM. Overnight the pain worsened and ultimately called EMS who brought him here. Does have history of stents and is on Eliquis. Reports taking his meds as directed. Pain is not relieved with the Aleve. Swelling and pain increased throughout the night and now he cannot bend his knee. Onset: yesterday Severity: moderate Pain/Injury Location: right knee Method of Injury: fell Modifying Factors: Improves With Immobilization; Worse With Movement Allergies and Home Medications Allergies Coded Allergies: Iodinated Contrast Media (Verified Allergy, Unknown, 11/09/06) Home Medications Amlodipine Besylate 10 Mg Tablet, 10 MG PO DAILY, (Reported) Apixaban 5 Mg Tablet, 5 MG PO BID Prescribed by: SUNITA SHEETS on 08/13/18 1322 Aspirin 81 Mg Tablet.dr, 81 MG PO DAILY, (Reported) Losartan Potassium 100 Mg Tablet, 100 MG PO DAILY, (Reported) Metoprolol Succinate 100 Mg Tab.er.24h, 100 MG PO DAILY, (Reported) [place]-3/Dha/Epa/Fish Oil 1 Each Capsule, 1 EACH PO DAILY, (Reported) Ondansetron 4 Mg Tab.rapdis, 4 MG PO Q6H PRN for NAUSEA/VOMITING Prescribed by: ALEXEI GALEAS on 09/02/18 1535 Patient Home Medication List Home Medication List Reviewed: Yes Review of Systems Constitutional: see HPI; No chills, No fever EENTM: no symptoms reported Respiratory: no symptoms reported Cardiovascular: no symptoms reported Gastrointestinal: no symptoms reported Genitourinary: no symptoms reported Musculoskeletal: see HPI, joint pain, joint swelling, muscle pain Skin: change in color, lesions Psychiatric/Neurological: No Symptoms Reported All Other Systems Reviewed Negative Unless Noted: Yes Past Mytmvmb-Byqqyz-Snrklh Hx Past Med/Social Hx: Reviewed Nursing Past Med/Soc Hx Patient Social History Alcohol Use: Denies Use Recreational Drug Use: No Smoking Status: Former Smoker Type Used: Cigarettes Former Smoker, Quit: Feb 25, 1950 2nd Hand Smoke Exposure: No Recent Hopitalizations: No Immunizations Up To Date Tetanus Booster (TDap): Less than 5yrs Date of Pneumonia Vaccine: Jul 10, 2011 Date of Influenza Vaccine: May 28, 2018 Seasonal Allergies Seasonal Allergies: No Past Medical History Surgeries: Yes (HERNIA X2, STENT IN HEART 2003, g GB REMOVED, cleft lip) Coronary Stent, Gallbladder Respiratory: No Cardiac: Yes (STENT) Coronary Artery Disease, High Cholesterol, Hypertension Neurological: No Reproductive Disorders: No Sexually Transmitted Disease: No HIV/AIDS: No Genitourinary: No Gastrointestinal: Yes Hiatal Hernia Musculoskeletal: Yes (LEFT FOOT PAIN) Arthritis Endocrine: No Cataract Hearing Impairment: Hard of Hearing Cancer: No Psychosocial: No Integumentary: No Blood Disorders: No Adverse Reaction/Blood Tranf: No Family Medical History Reviewed Nursing Family Hx CANCER G8 BROTHER FH: cancer No Pertinent Family Hx Physical Exam Vital Signs Vital Signs - First Documented 01/18/20 04:43 Temp 36.3 Pulse 81 Resp 19 B/P (MAP) 186/74 (111) Pulse Ox 97 O2 Delivery Room Air Capillary Refill : Height, Weight, BMI Height: 5'5.00" Weight: 150lbs. 6.0oz. 68.191070ly; 26.37 BMI Method:Stated General Appearance: WD/WN, no apparent distress HEENT: PERRL/EOMI, pharynx normal Neck: full range of motion, supple Cardiovascular: regular rate, rhythm, no murmur Respiratory: lungs clear, normal breath sounds Gastrointestinal: non tender, soft Back: normal inspection, no CVA tenderness, no vertebral tenderness Hips: bilateral hip non-tender, bilateral hip normal inspection, bilateral hip normal range of motion, bilateral hip no evidence of injury Knees: left knee non-tender, left knee normal inspection, left knee normal range of motion; right knee ecchymosis, right knee joint effusion, right knee pain, right knee soft tissue tenderness, right knee swelling Neurologic/Tendon: normal sensation, normal motor functions, normal tendon functions Neurologic/Psychiatric: alert, oriented x 3 Skin: warm/dry, ecchymosis (right knee), other (he abrasions to the anterior knee) Procedures/Interventions Suture Size: 5-0 Additional Procedures: Arthrocentesis Aspirating Progress Right knee prepped with Betadine. Using aseptic technique, local anesthesia with 1% lidocaine 2 mL over site of concern to the medial aspect of the right knee. Using an 18-gauge needle, joint was aspirated and 33 mL of blood was removed from the joint space. 3 mL of 1% lidocaine instilled. Patient tolerated procedure well with no complications. Progress/Results/Core Measures Results/Orders Lab Results Laboratory Tests Test 01/18/20 04:45 Range/Units White Blood Count 15.4 H 4.3-11.0 10^3/uL Red Blood Count 4.55 4.35-5.85 10^6/uL Hemoglobin 13.9 13.3-17.7 G/DL Hematocrit 40 40-54 % Mean Corpuscular Volume 88 80-99 FL Mean Corpuscular Hemoglobin 31 25-34 PG Mean Corpuscular Hemoglobin Concent 35 32-36 G/DL Red Cell Distribution Width 16.4 H 10.0-14.5 % Platelet Count 199 130-400 10^3/uL Mean Platelet Volume 10.1 7.4-10.4 FL Neutrophils (%) (Auto) 75 42-75 % Lymphocytes (%) (Auto) 12 12-44 % Monocytes (%) (Auto) 13 H 0-12 % Eosinophils (%) (Auto) 0 0-10 % Basophils (%) (Auto) 0 0-10 % Neutrophils # (Auto) 11.5 H 1.8-7.8 X 10^3 Lymphocytes # (Auto) 1.9 1.0-4.0 X 10^3 Monocytes # (Auto) 2.0 H 0.0-1.0 X 10^3 Eosinophils # (Auto) 0.0 0.0-0.3 10^3/uL Basophils # (Auto) 0.0 0.0-0.1 10^3/uL Neutrophils % (Manual) 77 % Lymphocytes % (Manual) 10 % Monocytes % (Manual) 11 % Band Neutrophils 1 % Poikilocytosis SLIGHT Basophilic Stippling SLIGHT Anisocytosis SLIGHT Crenated Cell Elliptocytes SLIGHT Schistocytes SLIGHT Sodium Level 136 135-145 MMOL/L Potassium Level 4.0 3.6-5.0 MMOL/L Chloride Level 103 98-107 MMOL/L Carbon Dioxide Level 22 21-32 MMOL/L Anion Gap 11 5-14 MMOL/L Blood Urea Nitrogen 16 7-18 MG/DL Creatinine 1.00 0.60-1.30 MG/DL Estimat Glomerular Filtration Rate > 60 BUN/Creatinine Ratio 16 Glucose Level 160 H 70-105 MG/DL Calcium Level 9.4 8.5-10.1 MG/DL Corrected Calcium 9.2 8.5-10.1 MG/DL Total Bilirubin 1.1 H 0.1-1.0 MG/DL Aspartate Amino Transf (AST/SGOT) 25 5-34 U/L Alanine Aminotransferase (ALT/SGPT) 25 0-55 U/L Alkaline Phosphatase 100 40-136 U/L Total Protein 6.9 6.4-8.2 GM/DL Albumin 4.3 3.2-4.5 GM/DL My Orders Orders - RAYMOND SONI MD Fentanyl Injection (Sublimaze Injection (01/18/20 04:49) Knee, Right, 3 Views (01/18/20 04:49) Ct Head Wo (01/18/20 04:54) Cbc With Automated Diff (01/18/20 04:54) Comprehensive Metabolic Panel (01/18/20 04:54) Manual Differential (01/18/20 04:45) Ct Extremity Lower Right Wo (01/18/20 05:43) Carlos Bandage (01/18/20 06:32) Knee Immobilizer (01/18/20 06:32) Walker (01/18/20 06:32) Hydrocodone/Apap 5/325 Tablet (Lortab 5 (01/18/20 06:45) Vital Signs/I&O 01/18/20 04:43 Temp 36.3 Pulse 81 Resp 19 B/P (MAP) 186/74 (111) Pulse Ox 97 O2 Delivery Room Air Progress Progress Note : Progress Note Seen and evaluated. IV by EMS. We will get x-ray of the right knee. We will check basic labs due to extra Aleve dosing. We will get CT of the head due to age, patient is on Eliquis and had jarring fall. Monitor patient. Fentanyl 50 g IV ordered monitor patient. 0544: X-ray of the right knee concerning for patellar fracture and potential tibial plateau fracture. There is significant amount of degeneration. We will get CT of the knee. Significant effusion noted concerning for hemarthrosis given his Eliquis usage. Arthrocentesis performed and 33 mL of blood pain patient stated he felt much better afterwards. 3 mL of percent lidocaine instilled. Patient states that it feels better. 0635: Carlos wrap applied. Knee immobilizer placed. All care given. I did instruct the patient for follow-up with orthopedics and he will call and make appointment on Monday morning. He will go home with his sister. Hydrocodone 5/325 one tab by mouth given. Patient noted sinus infection on CT. We will initiate Cefdinir 300 mg by mouth now and continue for 1 week. Short prescription for hydrocodone given. Discharged home with return precautions. Patient verbalize understanding instructions and agreement with plan. Diagnostic Imaging Diagonstic Imaging: Xray Plain Films/CT/US/NM/MRI: knee Comments Right knee with significant degeneration. Potential patellar fracture. Medial plateau appears flattened. Reviewed: Reviewed by Me Diagonstic Imaging: CT Plain Films/CT/US/NM/MRI: head Comments No evidence of acute intracranial abnormality. Sinusitis Reviewed: Reviewed by Me Diagonstic Imaging: CT Plain Films/CT/US/NM/MRI: other Comments Minimally displaced vertically oriented fracture of the patella with moderate lipohemarthrosis and prepatellar soft tissue swelling. Mild tricompartmental degenerative changes. Departure Impression Primary Impression: Right patella fracture Qualified Codes: S82.024A - Nondisplaced longitudinal fracture of right patella, initial encounter for closed fracture Additional Impressions: Hemarthrosis, right knee Maxillary sinusitis, acute Qualified Codes: J01.00 - Acute maxillary sinusitis, unspecified Disposition: HOME, SELF-CARE Condition: Stable Departure-Patient Inst. Decision time for Depature: 06:38 Referrals: NAS GAMBOA MD, JONATHAN MD NO,LOCAL PHYSICIAN (PCP) Primary Care Physician BERT YEBOAH MD,APRIL Watters MD Patient Instructions: Patella Fracture (DC), Hemarthrosis (DC), Sinusitis, Adult (DC) Add. Discharge Instructions: All discharge instructions reviewed with patient and/or family. Voiced understanding. Take medications as directed. Follow-up with your DrDaily for recheck and further evaluation. You need to call and make appointment with orthopedic physician of your choice or one of the ones listed for appointment this week with a patellar fracture. You have a vertical, minimally displaced patella fracture of the right knee. Use knee immobilizer until cleared by orthopedic physician. Return for worse pain, fever, vomiting, weakness, breathing problems, swelling in your leg or other concerns as needed. Use walker at all times when moving about. Scripts Hydrocodone/Acetaminophen (Hydrocodone/Acetaminophen 5 MG/325 MG TAB) 1 Each Tablet 1 TAB PO Q6H PRN for PAIN-MODERATE (5-7) MDD 10 TABS for 7 Days, #16 TAB Prov: RAYMOND SONI MD 01/18/20 Cefdinir (Cefdinir) 300 Mg Capsule 300 MG PO BID, #14 CAP 0 Refills Prov: RAYMOND SONI MD 01/18/20 RAYMOND SONI MD January 18, 2020 04:54
[2020-01-18 05:00] LABS: BASOPHILS % (AUTO) 0 % (0-10); EOSINOPHILS % (AUTO) 0 % (0-10); HEMATOCRIT 40 % (40-54); HEMOGLOBIN 13.9 G/DL (13.3-17.7); LYMPHOCYTES # (AUTO) 1.9 X 10^3 (1.0-4.0); LYMPHOCYTES % (AUTO) 12 % (12-44); MEAN CORPUSCULAR HEMOGLOBIN 31 PG (25-34); MEAN CORPUSCULAR HGB CONC 35 G/DL (32-36); MEAN CORPUSCULAR VOLUME 88 FL (80-99); MEAN PLATELET VOLUME 10.1 FL (7.4-10.4); MONOCYTES % (AUTO) 13 % (0-12); NEUTROPHILS # (AUTO) 11.5 X 10^3 (1.8-7.8); NEUTROPHILS % (AUTO) 75 % (42-75); PLATELET COUNT 199 10^3/uL (130-400); RED CELL DISTRIBUTION WIDTH 16.4 % (10.0-14.5); WHITE BLOOD COUNT 15.4 10^3/uL (4.3-11.0)
[2020-01-18 05:04] LABS: ALBUMIN 4.3 GM/DL (3.2-4.5)
[2020-01-18 05:05] LABS: CHLORIDE 103 MMOL/L (98-107); SODIUM 136 MMOL/L (135-145)
[2020-01-18 05:06] LABS: CALCIUM 9.4 MG/DL (8.5-10.1)
[2020-01-18 05:07] LABS: GLUCOSE 160 MG/DL (70-105); TOTAL PROTEIN 6.9 GM/DL (6.4-8.2)
[2020-01-18 05:08] LABS: CARBON DIOXIDE 22 MMOL/L (21-32)
[2020-01-18 05:09] LABS: BILIRUBIN,TOTAL 1.1 MG/DL (0.1-1.0)
[2020-01-18 05:10] LABS: ALKALINE PHOSPHATASE 100 U/L (40-136)
[2020-01-18 05:11] LABS: GFR ESTIMATED > 60
[2020-01-18 05:12] LABS: BUN/CREATININE RATIO 16
[2020-01-18 05:13] LABS: ALANINE AMINOTRANSFERASE 25 U/L (0-55)
[2020-01-18 05:26] LABS: BAND NEUTROPHILS 1 %; LYMPHOCYTES % (MANUAL) 10 %; MONOCYTES % (MANUAL) 11 %; NEUTROPHILS % (MANUAL) 77 %
[2020-01-18 05:27] LABS: ANISOCYTOSIS SLIGHT; ELLIPT/OVALOCYTES SLIGHT; POIKILOCYTOSIS SLIGHT
[2020-01-18 05:29] LABS: SCHISTOCYTES SLIGHT
--- NOTE | 2020-01-18 05:49 | Diagnostic Imaging Report ---
PROCEDURE: CT head without contrast. TECHNIQUE: Multiple contiguous axial images were obtained through the brain without the use of intravenous contrast. Auto Exposure Controls were utilized during the CT exam to meet ALARA standards for radiation dose reduction. INDICATION: Fall. Scalp contusion. COMPARISON: 07/23/2016. FINDINGS: No large acute territorial ischemia, mass, or hemorrhage. No midline shift or mass effect. Decreased attenuation is seen in the periventricular and subcortical white matter. The ventricles and cortical sulci are prominent. The basilar cisterns are patent and unremarkable. The calvarium is intact. Retained secretions are seen in the bilateral maxillary sinuses. Bilateral mastoid effusions are present. IMPRESSION: 1. No large acute territorial ischemia, mass, or hemorrhage. 2. Chronic microvascular disease. 3. Generalized parenchymal volume loss. 4. Bilateral mastoid effusions with mucosal thickening in the bilateral maxillary sinuses. Dictated by: Dictated on workstation # [id number]
[2020-01-18] MEDS ORDERED: HYDR-4226 PO (06:40)
[2020-01-18] MEDS ORDERED: CEFD300C3 PO (06:40)
[2020-01-18] MEDS ORDERED: CEFDINIR 300 MG (OMNICEF) CAP PO ONE (06:45)
[2020-01-18] MEDS ORDERED: HYDROcodone/APAP 5 MG/325 MG (LORTAB) TAB PO ONE (06:45)
[2020-01-18 06:57] VITALS: BP 179/82
--- NOTE | 2020-01-18 07:00 | Diagnostic Imaging Report ---
INDICATION: Knee pain TECHNIQUE: 4 views of the right knee CORRELATION STUDY: None FINDINGS: There is rather advanced tricompartment degenerative change about the right knee. This includes joint space narrowing and marginal osteophyte formation. There is rather sizable lipohemarthrosis present. Vertically oriented nondisplaced fracture through the lateral aspect of the patella. IMPRESSION: 1. Vertically-oriented fracture through the patella. Associated lipohemarthrosis. Dictated by: Dictated on workstation # [id number]
--- NOTE | 2020-01-18 07:01 | Diagnostic Imaging Report ---
PROCEDURE: CT right lower extremity without contrast. TECHNIQUE: Axially acquired CT was obtained through the right lower extremity without intravenous contrast. Coronal and sagittal reformations were also performed. Auto Exposure Controls were utilized during the CT exam to meet ALARA standards for radiation dose reduction. INDICATION: One day post fall with continued right knee pain. CORRELATION STUDY: Knee radiographs 01/18/2020 FINDINGS: There is a vertically oriented fracture through the lateral 3rd of the patella. Minimally displaced. There is associated moderate sized lipohemarthrosis as well as trace gas within the joint space. There is presence of a least moderately advanced tricompartment degenerative change. This includes joint space narrowing and marginal osteophyte formation. This includes the patellofemoral compartment. There is prominent vascular calcification. Prominent prepatellar soft tissue swelling is also noted. IMPRESSION: 1. Minimally displaced vertically-oriented fracture through the lateral 3rd of the patella. Associated moderate lipohemarthrosis and prepatellar soft tissue swelling. 2. Findings are superimposed on moderately advanced on tricompartment degenerative change. A preliminary report was provided by Kellie. Dictated by: Dictated on workstation # [id number]
--- NOTE | 2020-01-18 07:05 | NUR ---
WAITNG FOR PATIENT RIDE
== END 2020-01-18 07:33 | disposition home or self-care (01) ==
LOC: EDUNIT# 04:40 → ER 04:42
DX: S82.024A Nondisplaced longitudinal fracture of right patella, initial encounter for closed fracture (principal); J01.00 Acute maxillary sinusitis, unspecified; I10 Essential (primary) hypertension; E78.00 Pure hypercholesterolemia, unspecified; I25.10 Atherosclerotic heart disease of native coronary artery without angina pectoris; Z95.5 Presence of coronary angioplasty implant and graft; Z91.041 Radiographic dye allergy status; Z79.01 Long term (current) use of anticoagulants; Z79.02 Long term (current) use of antithrombotics/antiplatelets; Z79.82 Long term (current) use of aspirin; Z87.891 Personal history of nicotine dependence; W01.198A Fall on same level from slipping, tripping and stumbling with subsequent striking against other object, initial encounter
CPT/HCPCS: 36415; 70450; 73562; 73700; 80053; 85007; 85027

== ENCOUNTER → 2021-12-03 | Outpatient (CLI) | payer MEDICARE ==
[~2021-12-03] MED LIST changes: +AMLO-251 PO; -AMLO10TA7 PO; +CEFD300C3 PO; +ENAL10TA16 PO; +HYDR-4226 PO
[2021-12-03 08:54] LABS: ALBUMIN 4.1 GM/DL (3.2-4.5); BILIRUBIN,TOTAL 0.9 MG/DL (0.1-1.0); CALCIUM 10.1 MG/DL (8.5-10.1); CREATININE SERUM 0.93 MG/DL (0.60-1.30); POTASSIUM 4.5 MMOL/L (3.6-5.0); TOTAL PROTEIN 6.8 GM/DL (6.4-8.2)
== END ==
LOC: CARD 09:00
PROVIDERS: ATTEND Physician Assistant
DX: I10 Essential (primary) hypertension (principal); I65.29 Occlusion and stenosis of unspecified carotid artery; I25.10 Atherosclerotic heart disease of native coronary artery without angina pectoris; E78.2 Mixed hyperlipidemia; I08.0 Rheumatic disorders of both mitral and aortic valves
CPT/HCPCS: 36415; 80053; 80061; 93306

== ENCOUNTER 2022-09-16 12:36 | Emergency (ER) | payer MEDICARE ==
[~2022-09-16] VITALS: Ht 165 cm; Wt 63.5 kg
[2022-09-16] MEDS ORDERED: TETANUS,DIPTH,PERTUSS P/F (BOOSTRIX) 0.5 ML VIAL IM ONE (13:00)
[2022-09-16] MEDS ORDERED: LIDOCAINE 1% INJ 20 ML VIAL INJ ONE (13:15)
--- NOTE | 2022-09-16 13:50 | Diagnostic Imaging Report ---
INDICATION: Right rib injury from a fall PA chest and 3 views of the right ribs were obtained There are fractures of the right posterolateral 7th and 8th ribs. There are no effusions or pneumothoraces. IMPRESSION: Nondisplaced fractures of the right posterolateral 7th and 8th ribs. Dictated by: Dictated on workstation # [id number]
--- NOTE | 2022-09-16 13:55 | ED Fall/Injury ---
General Chief Complaint: Trauma-Non Activation Stated Complaint: FALL Nursing Triage Note: PT ARRIVES TO ER VIA EMS. REPORTS PT WAS AT A LOCAL BUSINESS, TRIPPED AND FELL, DENIES LOC. ARRIVES WITH LACERATION TO R EYEBROW, ARRIVES WITH DRESSING IN PLACE FROM F.D. PT DOES TAKE BLOOD THINNERS. PT HAS A SKIN TEAR TO R ELBOW. PT C/O PAIN TO R RIB AREA. Source: patient, EMS Exam Limitations: no limitations History of Present Illness Date Seen by Provider: Sep 16, 2022 Time Seen by Provider: 13:52 Initial Comments To ER by EMS after he fell outside of a local business here in town. He tripped stepping up over the curb causing him to fall striking the right side of his head. Laceration to the right eyebrow. Also has skin tear to the right elbow and pain to the right lateral ribs. No loss of consciousness. No neck pain. Provides his own history. Additional history provided by [facility]. Location Injury Occurred: LOCAL BUSINESS Occurred: just prior to arrival Severity: moderate Injuries/Pain Location: head, chest Context: tripped Loss of Consciousness: no loss of consciousness Associated Symptoms (Fall): Denies Symptoms Allergies and Home Medications Allergies Coded Allergies: Iodinated Contrast Media (Verified Allergy, Unknown, 11/09/06) Patient Home Medication List Home Medication List Reviewed: Yes Amlodipine Besylate (Amlodipine Besylate) 10 Mg Tablet, 10 MG PO DAILY, (Reported) Entered as Reported by: JOSIE ELDER on 01/18/16 1019 Apixaban (Eliquis) 5 Mg Tablet, 5 MG PO BID Prescribed by: SUNITA SHEETS on 08/13/18 1322 Aspirin (Aspir 81) 81 Mg Tablet.dr, 81 MG PO DAILY, (Reported) Entered as Reported by: ANTHONY NIELSEN on 02/26/16 1120 Cefdinir (Cefdinir) 300 Mg Capsule, 300 MG PO BID Prescribed by: RAYMOND SONI on 01/18/20 0640 Hydrocodone/Acetaminophen (Hydrocodone/Acetaminophen 5 MG/325 MG TAB) 1 Each Tablet, 1 TAB PO Q6H PRN for PAIN-MODERATE (5-7) Prescribed by: RAYMOND SONI on 01/18/20 0641 Hydrocodone/Acetaminophen (Hydrocodone-Acetamin 5-325 mg) 5 Mg-325 Mg Tablet, 1 TAB PO Q4H PRN for PAIN-MODERATE (5-7) Prescribed by: NIKOLE PIERRE on 09/16/22 1404 Last Action: New Order Losartan Potassium (Losartan Potassium) 100 Mg Tablet, 100 MG PO DAILY, (Reported) Entered as Reported by: KEYONNA GLASGOW on 08/13/18 1041 Metoprolol Succinate (Metoprolol Succinate) 100 Mg Tab.er.24h, 100 MG PO DAILY, (Reported) Entered as Reported by: JOSIE ELDER on 01/18/16 1019 [employer]-3/Dha/Epa/Fish Oil (Fish Oil 1,000 mg Softgel) 1 Each Capsule, 1 EACH PO DAILY, (Reported) Entered as Reported by: KEYONNA GLASGOW on 08/13/18 1044 Ondansetron (Ondansetron Odt) 4 Mg Tab.rapdis, 4 MG PO Q6H PRN for NAUSEA/VOMITING Prescribed by: ALEXEI GALEAS on 09/02/18 1535 Review of Systems Review of Systems Constitutional: see HPI Past Prycftu-Trckpp-Ixilun Hx Patient Social History Tobacco Use?: No Use of E-Cig and/or Vaping dev: No Substance use?: No Alcohol Use?: No Pt feels they are or have been: No Immunizations Up To Date Tetanus Booster (TDap): Less than 5yrs First/Initial COVID19 Vaccinat: RECEIVED, UNK WHEN Second COVID19 Vaccination Arnaldo: RECEIVED, UNK WHEN Third COVID19 Vaccination Date: RECEIVED, UNK WHEN COVID19 Vaccine Community Recreation Programmer: UNK Seasonal Allergies Seasonal Allergies: No Past Medical History Surgeries: Yes (HERNIA X2, STENT IN HEART 2003, g GB REMOVED, cleft lip) Coronary Stent, Gallbladder Respiratory: No Cardiac: Yes (STENT) Coronary Artery Disease, High Cholesterol, Hypertension Neurological: No Reproductive Disorders: No Sexually Transmitted Disease: No HIV/AIDS: No Genitourinary: No Gastrointestinal: Yes Hiatal Hernia Musculoskeletal: Yes (LEFT FOOT PAIN) Arthritis Endocrine: No Cataract Hearing Impairment: Hard of Hearing Cancer: No Psychosocial: No Integumentary: No Blood Disorders: No Adverse Reaction/Blood Tranf: No Family Medical History CANCER G8 BROTHER FH: cancer No Pertinent Family Hx Physical Exam Vital Signs Vital Signs - First Documented 09/16/22 12:49 Temp 35.3 Pulse 70 Resp 20 B/P (MAP) 118/83 (95) Pulse Ox 97 O2 Delivery Room Air Capillary Refill : Height, Weight, BMI Height: 5'5.00" Weight: 150lbs. 6.0oz. 68.830448xf; 23.00 BMI Method:Stated General Appearance: WD/WN, no apparent distress, other (Alert and oriented very talkative pleasant GCS 15. Laceration of the lateral aspect of the forehead just superior to the lateral aspect of the right eyebrow. Bleeding is easily controlled with direct pressure. No joshi sign or hemotympanum. No evidence of globe injury. No nasal injury.) HEENT: PERRL/EOMI, normal ENT inspection Neck: non-tender, full range of motion Cardiovascular: other (Right lateral chest wall tender to palpation but without erythema ecchymosis or abrasion. No crepitus.) Respiratory: no respiratory distress, no accessory muscle use Gastrointestinal: normal bowel sounds, non tender Extremities: normal range of motion, non-tender Neurologic/Psychiatric: alert, normal mood/affect, oriented x 3 Skin: normal color, warm/dry Procedures/Interventions Wound Location: Face Wound Length (cm): 1 Wound's Depth, Shape: linear, sub Q Wound Explored: clean Irrigated w/ Saline (ccs): 60 Anesthesia: 1% Lidocaine Volume Anesthetic (ccs): 3 Suture: Prolene Suture Size: 5-0 Number of Sutures: 3 Layer Closure?: 1 Number Deep Layer Sutures: 0 Sterile Dressing Applied?: No Progress/Results/Core Measures Results/Orders My Orders Orders - NIKOLE PIERRE APRN Ct Head/Cervical Spine Wo (09/16/22 12:59) Ribs/Unilateral With Chest (09/16/22 12:59) Dipht,Pertuss(Acell),Tet Adult (Boostrix (09/16/22 13:00) Lidocaine 1% Inj 20 Ml (Xylocaine 1% Inj (09/16/22 13:15) Medications Given in ED Current Medications Medications Dose Ordered Sig/Benji Route Start Time Stop Time Status Last Admin Dose Admin Lidocaine HCl 20 ml ONCE ONCE INJ 09/16/22 13:15 09/16/22 13:16 DC 09/16/22 14:10 20 ML Vital Signs/I&O 09/16/22 09/16/22 12:49 13:00 Temp 35.3 35.3 Pulse 70 70 Resp 20 20 B/P (MAP) 118/83 (95) 118/33 (61) Pulse Ox 97 97 O2 Delivery Room Air Room Air Blood Pressure Mean: 61 Departure Communication (Admissions) NAME: MARLEEN RODRIGEZ [facility] REC#: [id number] PT STATUS: REG ER : 1935 PHYSICIAN: NIKOLE PIERRE APRN ADMIT DATE: 09/16/22/ER Draft Date of Exam:09/16/22 RIBS/UNILATERAL WITH CHEST INDICATION: Right rib injury from a fall PA chest and 3 views of the right ribs were obtained There are fractures of the right posterolateral 7th and 8th ribs. There are no effusions or pneumothoraces. IMPRESSION: Nondisplaced fractures of the right posterolateral 7th and 8th ribs. Dictated on workstation # [id number] Dict: 09/16/22 1345 Trans: 09/16/[address] [facility] [id number] Interpreted by: RAYMOND STAPLETON MD Electronically signed by: Family Conversation NAME: MARLEEN RODRIGEZ [facility] REC#: [id number] PT STATUS: REG ER : 1935 PHYSICIAN: NIKOLE PIERRE APRN ADMIT DATE: 09/16/22/ER Signed Date of Exam:09/16/22 CT HEAD/CERVICAL SPINE WO PROCEDURE: CT head and CT cervical spine without contrast. TECHNIQUE: Multiple contiguous axial images were obtained through the brain and cervical spine without the use of intravenous contrast. Sagittal and coronal reformations through the cervical spine were then performed. Auto Exposure Controls were utilized during the CT exam to meet ALARA standards for radiation dose reduction. INDICATION: Trauma. COMPARISON: CT head of 01/18/2020 FINDINGS: Head: No hyperdense hemorrhage or space-occupying mass. No hydrocephalus or midline shift. No evidence of territorial infarct. Periventricular hypoattenuation is most compatible chronic microvascular ischemic change. 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 Basilar cisterns are patent. No focal scalp swelling. No skull fracture. Chronic mucoperiosteal thickening of bilateral maxillary sinuses. Mastoid air cells are clear. Cervical spine: No acute fracture or traumatic malalignment. Partially calcified posterior disc protrusion at C2-C3 causes moderate spinal canal stenosis. Airway is patent. No cervical lymphadenopathy. Visualized thyroid is normal. IMPRESSION: 1. No acute intracranial process or skull fracture. 2. No acute fracture or traumatic malalignment of the cervical spine. Dictated by: Dictated on workstation # [id number] Dict: 09/16/22 1348 Trans: 09/16/22 1351 [facility] [id number] Interpreted by: MARY CARRERA MD Electronically signed by: MARY CARRERA MD 09/16/22 4886 I discussed tetanus with him, he states that he is up-to-date within the past 5 years. No need for admission. No need for transfer as the CT head and C-spine is unremarkable. Will cover the skin tear to the right arm with Steri-Strips. We will treat the right rib fractures with hydrocodone for pain and a skin spirometer. We will place sutures to the right forehead laceration and discharged home. Impression Primary Impression: Right rib fracture Additional Impression: Forehead laceration Disposition: HOME, SELF-CARE Condition: Stable Departure-Patient Inst. Decision time for Depature: 13:55 Referrals: NO,LOCAL PHYSICIAN (PCP/Family) Primary Care Physician Patient Instructions: Rib Fracture or Bruised Rib ED Add. Discharge Instructions: Pain medication as directed. Use the incentive spirometer to make sure that you take a deep breath a couple of times every hour to reduce the likelihood of developing pneumonia. Return to ER for any fevers shortness of breath worsening symptoms. Return to ER for suture removal in about 7 days. All discharge instructions reviewed with patient and/or family. Voiced understanding. Scripts Hydrocodone/Acetaminophen (Hydrocodone-Acetamin 5-325 mg) 5 Mg-325 Mg Tablet 1 TAB PO Q4H PRN for PAIN-MODERATE (5-7), #20 TAB Prov: NIKOLE PIERRE GAME TECHNICIAN 09/16/22 NIKOLE PIERRE APRN Sep 16, 2022 13:55
[2022-09-16] MEDS ORDERED: ACHD5005 PO (14:04)
[2022-09-16 14:20] VITALS: BP 141/90
== END 2022-09-16 14:25 | disposition home or self-care (01) ==
LOC: EDUNIT# 12:36 → ER 12:38
DX: S22.41XA Multiple fractures of ribs, right side, initial encounter for closed fracture (principal); S01.81XA Laceration without foreign body of other part of head, initial encounter; S51.011A Laceration without foreign body of right elbow, initial encounter; W01.198A Fall on same level from slipping, tripping and stumbling with subsequent striking against other object, initial encounter
CPT/HCPCS: 70450; 71101; 72125

== ENCOUNTER 2022-09-23 07:35 | Emergency (ER) | payer MEDICARE ==
[~2022-09-23 07:35] MED LIST changes: +ACHD5005 PO
[2022-09-23 07:45] VITALS: BP 176/92
== END 2022-09-23 07:55 | disposition home or self-care (01) ==
LOC: EDUNIT# 07:35 → ER 07:37
DX: Z48.02 Encounter for removal of sutures (principal)

== ENCOUNTER → 2022-12-27 | Outpatient (CLI) | payer MEDICARE ==
[~2022-12-27] MED LIST changes: -ENAL10TA16 PO; +ENLP10T PO
== END ==
LOC: CARD 08:15
PROVIDERS: ATTEND Internal Medicine Cardiovascular Disease
DX: I10 Essential (primary) hypertension (principal); I25.10 Atherosclerotic heart disease of native coronary artery without angina pectoris
CPT/HCPCS: 93306

== ENCOUNTER → 2023-02-06 | Outpatient (CLI) | payer MEDICARE ==
[~2023-02-06] VITALS: Ht 165 cm; Wt 60.0 kg
[~2023-02-06] MED LIST changes: -LOSA100T57; -LOSA100T57 PO; +LOSA100T58; +LOSA100T58 PO; +REGADENOSON 0.4 MG/5 ML SYR (LEXISCAN) IV ONE
[2023-02-06] MEDS: CATHETER FLUSH 10 ML SYR IVP PRN ×2 (07:00→09:06)
[2023-02-06 09:05] VITALS: BP 169/65
--- NOTE | 2023-02-06 12:05 | Cardiology Stress Test Report ---
Stress Test Report Date of Procedure/Referring: Date of Procedure: Feb 06, 2023 PCP Kaya Pedraza Admitting Physician Admitting Physician: Attending Physician: Gabbie Triplett MD Baseline Heart Rate: 59 Baseline Blood Pressure: Blood Pressure Systolic: 169 Blood Pressure Diastolic: 65 Baseline Vitals Vital Signs Date Time Temp Pulse Resp B/P (MAP) Pulse Ox O2 Delivery O2 Flow Rate FiO2 02/06/23 09:05 64 20 169/65 (99) 97 Room Air Baseline EKG: Baseline EKG: RBBB Summary After explaining the procedure to the patient, he signed a consent and then brought to the stress nuclear laboratory. Patient received 0.4 mg Lexiscan for stress test, ECG, heart rate and blood pressure were monitored continuously. Resting and stress dose of radio tracer were injected, imaging was acquired and reviewed in short axis, horizontal long axis and vertical long axis views. TID: 1.03 SSS: 0 SDS: 0 EF: 71 Patient tolerated Lexiscan well Baseline right bundle branch block persisted during test No ischemia or infarction noted on SPECT images Normal left ventricular size, ejection fraction 71% CC FRANCESCO Goff BASHAR J MD Feb 06, 2023 12:05
== END ==
LOC: CARD 06:32
PROVIDERS: ATTEND Internal Medicine Cardiovascular Disease
DX: I10 Essential (primary) hypertension (principal); I25.10 Atherosclerotic heart disease of native coronary artery without angina pectoris
CPT/HCPCS: 78452; 93017; A9502